=== PATIENT | female | born 1975 | race Two or more races ===

== ENCOUNTER → 2020-06-07 11:08 | Outpatient (BNVA) | payer OTHER, SELFPAY | PROVIDERS: PCP Family Medicine; Visit Provider Anesthesiology | DX: M79.7 Fibromyalgia (principal); M32.9 Systemic lupus erythematosus, unspecified; M47.816 Spondylosis without myelopathy or radiculopathy, lumbar region; M46.1 Sacroiliitis, not elsewhere classified | CPT/HCPCS: 99202 ==

== ENCOUNTER 2020-06-13 12:49 | Outpatient (REF) | payer OTHER, SELFPAY ==
--- NOTE | 2020-06-13 13:28 | XR_ITS ---
EXAMINATION: XR BILATERAL HANDS XR BILATERAL WRISTS CLINICAL INFORMATION: SLE COMPARISON: None TECHNIQUE: Bilateral hand/wrist, large [id number] images, 4 views FINDINGS: Right Hand/Wrist: Normal bone mineralization. Normal alignment. No significant arthropathy seen. No erosions identified. No abnormal soft tissue calcification. Carpal row alignment is maintained. Left Hand/Wrist: Normal bone mineralization. Normal alignment. No significant arthropathy is seen. No erosions or abnormal soft tissue calcification identified. Carpal row alignment is maintained. XR/XR hand wrist LT IMPRESSION: No radiographic evidence of significant arthropathy.
--- NOTE | 2020-06-13 13:28 | XR_ITS ---
EXAMINATION: XR BILATERAL HANDS XR BILATERAL WRISTS CLINICAL INFORMATION: SLE COMPARISON: None TECHNIQUE: Bilateral hand/wrist, large [id number] images, 4 views FINDINGS: Right Hand/Wrist: Normal bone mineralization. Normal alignment. No significant arthropathy seen. No erosions identified. No abnormal soft tissue calcification. Carpal row alignment is maintained. Left Hand/Wrist: Normal bone mineralization. Normal alignment. No significant arthropathy is seen. No erosions or abnormal soft tissue calcification identified. Carpal row alignment is maintained. XR/XR hand wrist RT IMPRESSION: No radiographic evidence of significant arthropathy.
[2020-06-14 09:11] LABS: HBc Num1 0.08 S/CO (0.00-0.79); HBsAGNum1 0.22 S/CO (0.00-0.99); Hepatitis B Core Antibody Nonreactive (Nonreactive); Hepatitis B Surface Antigen Negative (Negative); ~HepC Num1 0.26 S/CO (0.00-0.79); ~Hepatitis B Surface Antibody REACTIVE (Nonreactive); ~Hepatitis C Antibody Nonreactive (Nonreactive)
[2020-06-14 09:26] LABS: Hepatitis A Antibody IgM 0.15 Index (0-0.79); ~Hepatitis A Antibody IgM Nonreactive (Nonreactive)
[2020-06-15 19:01] LABS: TS Negative Control Passed; TS Panel A 1; TS Panel B 0; TS Positive Control Passed; TSpotTB Negative (SeeBelow)
== END 2020-06-13 12:50 | disposition home or self-care (01) ==
LOC: HO.LAB 12:49
PROVIDERS: PCP Family Medicine; Visit Provider Student in an Organized Health Care Education/Training Program
DX: M32.9 Systemic lupus erythematosus, unspecified (principal)
CPT/HCPCS: 73110; 73130; 86481; 86704; 86706; 86709; 86803; 87340

== ENCOUNTER → 2020-06-26 11:29 | Outpatient (BNVA) | payer OTHER, SELFPAY | PROVIDERS: PCP Family Medicine; Referring Provider Family Medicine; Visit Provider Student in an Organized Health Care Education/Training Program | DX: M32.9 Systemic lupus erythematosus, unspecified (principal); R79.89 Other specified abnormal findings of blood chemistry; M79.7 Fibromyalgia; Z79.899 Other long term (current) drug therapy | CPT/HCPCS: 99212 ==

== ENCOUNTER 2020-06-26 12:05 | Outpatient (REF) | payer OTHER, SELFPAY ==
[2020-06-26 12:29] LABS: MANUAL DIFF FLAG NO
--- NOTE | 2020-06-26 12:30 | XR_ITS ---
EXAMINATION: XR CHEST CLINICAL INFORMATION: Lupus COMPARISON: Previous chest x-ray November 2017 TECHNIQUE: 2 views of the chest were obtained. FINDINGS: The cardiac and mediastinal contours are stable. There are increased linear markings at the left base on the PA view only. This is similar to November 2017 exam and probably represents linear scarring or chronic subsegmental atelectasis. The lungs are otherwise clear. There is no pleural effusion or pneumothorax. There are degenerative changes of the spine. XR/XR chest 2V IMPRESSION: Linear scarring or chronic subsegmental atelectasis at the left lung base similar to November 2017 exam.
[2020-06-26 12:31] LABS: Basophils Absolute Auto 0.1 X10*3/uL (0.0-0.2); Eosinophils Absolute Auto 0.1 X10*3/uL (0.0-0.4); Eosinophils Percent Auto 1.8 % (0-4); Hematocrit 40.9 % (37-47); Imm Gran Abs Auto 0.02 X10*3/uL (0.00-0.03); Imm Gran Pct Auto 0.3 % (0.0-0.4); Lymphocytes Absolute Auto 2.5 X10*3/uL (1.2-4.9); Lymphocytes Percent Auto 32.2 % (20-40); Mean Corpuscular HGB Conc 31.8 g/dl (31.0-35.0); Mean Corpuscular Hemoglobin 27.6 pg (27.0-33.0); Mean Corpuscular Volume 86.8 fL (80-98); Mean Platelet Volume 10.1 fL (9.4-12.3); Monocytes Absolute Auto 0.5 X10*3/uL (0.1-1.2); Monocytes Percent Auto 6.5 % (2-11); Neutrophils Absolute Auto 4.6 X10*3/uL (2.0-8.3); Neutrophils Percent Auto 58.2 % (45-73); Platelet Count 218 X10*3/uL (160-400); Red Blood Count 4.71 X10*6/uL (4.20-5.50); Red Cell Distribution Width 13.8 % (11.0-16.0); White Blood Count 7.9 X10*3/uL (4.8-10.8)
[2020-06-26 13:00] LABS: Alanine Aminotransferase 16 U/L (0-31); Albumin Level 4.2 g/dL (3.5-5.0); Alkaline Phosphatase 91 U/L (39-117); Anion Gap 9 (12-20); Aspartate Amino Transferase 20 U/L (5-31); Bilirubin Total 0.2 mg/dL (0.0-1.0); Blood Urea Nitrogen 15 mg/dL (9-16); C Reactive Protein 1.26 mg/dL (< or = 0.50); Calcium 9.2 mg/dL (8.4-10.2); Carbon Dioxide 27 mmol/L (22-29); Chloride 106 mmol/L (96-108); Estimated Glomerular Filt Rate > 60; Glucose Random 83 mg/dL (60-115); Potassium 4.4 mmol/l (3.3-5.1); Sodium 138 mmol/L (135-145); Total Protein 7.2 g/dL (6.5-8.0)
[2020-06-26 13:13] LABS: Glucose Urine UA NEG (NEG); Leukocyte Esterase Urine NEG (NEG); Nitrite Urine NEG (NEG); Urine Blood NEG (NEG); Urine Ketones NEG (NEG); Urine Protein NEG (NEG-TRACE)
[2020-06-26 13:14] LABS: Appearance Urine HAZY; Color Urine YELLOW
[2020-06-26 13:25] LABS: RBC Urine 0 /HPF (0); Squamous Epithelial Cell Urine 1+ /LPF; WBC Urine 0 /HPF (0-4)
[2020-06-26 13:31] LABS: Erythrocyte Sedimentation Rate 6 MM/HR (0-20)
[2020-06-27 13:37] LABS: Complement C3 107 mg/dL (83-193)
[2020-06-29 12:56] LABS: Anti DNA DS Antibody 1 IU/mL
== END 2020-06-26 12:06 | disposition home or self-care (01) ==
LOC: HO.LAB 12:05
PROVIDERS: PCP Family Medicine; Visit Provider Student in an Organized Health Care Education/Training Program
DX: M32.9 Systemic lupus erythematosus, unspecified (principal)
CPT/HCPCS: 36415; 71046; 80053; 81001; 85025; 85652; 86140; 86160; 86225; 99212

== ENCOUNTER → 2020-07-05 16:25 | Outpatient (BNVA) | payer OTHER, SELFPAY | PROVIDERS: PCP Family Medicine; Visit Provider Anesthesiology | DX: M79.7 Fibromyalgia (principal); M32.9 Systemic lupus erythematosus, unspecified; M47.816 Spondylosis without myelopathy or radiculopathy, lumbar region; M46.1 Sacroiliitis, not elsewhere classified | CPT/HCPCS: 99212 ==

== ENCOUNTER → 2020-08-31 11:38 | Outpatient (BNVA) | payer OTHER, SELFPAY | PROVIDERS: PCP Family Medicine; Referring Provider Family Medicine; Visit Provider Student in an Organized Health Care Education/Training Program | DX: M32.9 Systemic lupus erythematosus, unspecified (principal); M79.7 Fibromyalgia; R79.89 Other specified abnormal findings of blood chemistry; R20.0 Anesthesia of skin | CPT/HCPCS: 99212 ==

== ENCOUNTER 2020-10-05 11:08 | Day surgery (SDC) | payer OTHER, SELFPAY ==
[2020-09-03 11:02] VITALS: BMI 41.3
--- NOTE | 2020-09-06 09:50 | HO.ANESPROP2 ---
HPI - Anesthesia Eval Consult details Narrative: 45yo F for Sacroiliac Joint Steroid [facility] Past Medical History Medical History (Updated 09/03/20 @ 11:04 by Christina Sadler) Fibromyalgia Lupus Sacroiliitis Spondylosis of lumbar region without myelopathy or radiculopathy Surgical History Surgical History (Updated 09/03/20 @ 11:04 by Christina Sadler) Hx of foot surgery Social History Social History Alcohol intake: never Smoking Status: Current some day smoker Cigarettes Per Day: 16 Meds Allergies Allergy/AdvReac Type Severity Reaction Status Date / Time No Known Allergies Allergy Mild NKA Verified 08/31/20 11:43 Home Medications Medication Instructions Recorded Confirmed Type acetaminophen 500 mg tablet 500 mg PO Q6H PRN 05/18/20 09/03/20 History budesonide-formoterol HFA 160 2 puff INHALATION Q12H 05/18/20 09/03/20 History mcg-4.5 mcg/actuation aerosol inhaler clonazepam 0.5 mg tablet 0.5 mg PO TID 05/18/20 09/03/20 History cyclobenzaprine 10 mg tablet 10 mg PO BID PRN tab 05/18/20 09/03/20 History duloxetine 60 mg capsule,delayed 60 mg PO DAILY 05/18/20 09/03/20 History release fexofenadine 60 mg tablet 60 mg PO DAILY tab 05/18/20 09/03/20 History ibuprofen 600 mg tablet 600 mg PO Q6H PRN 05/18/20 09/03/20 History oxybutynin chloride 10 mg 10 mg PO DAILY 05/18/20 09/03/20 History tablet,extended release 24 hr pantoprazole 40 mg tablet,delayed 40 mg PO DAILY 05/18/20 09/03/20 History release zolpidem 5 mg tablet 5 mg PO BEDTIME PRN 05/18/20 09/03/20 History bupropion HCl 150 mg 24 hr tablet, 150 mg PO QAM 06/07/20 09/03/20 History extended release duloxetine 30 mg capsule,delayed 30 mg PO DAILY 06/07/20 09/03/20 History release fluticasone propionate 220 1 puff INHALATION BID 08/31/20 09/03/20 History mcg/actuation HFA aerosol inhaler Exam Exam Date and Time: September 06, 2020 0950 Height,Weight and Vital Signs: Height 5 ft 2 in Weight 102.682 kg Pertinent Lab Results Pertinent Lab Results: Laboratory Tests 06/26/20 06/26/20 12:22 12:22 WBC 7.9 Hgb 13.0 Hct 40.9 Plt Count 218 Sodium 138 Potassium 4.4 Chloride 106 Carbon Dioxide 27 BUN 15 Creatinine 0.77 Assessment and Plan Assessment Anesthesia Assessment: Chart Reviewed
[2020-10-01 16:57] VITALS: BMI 41.1
--- NOTE | ~2020-10-05 | FL_ITS ---
EXAMINATION: XR FLUOROSCOPY WITH IMAGES CLINICAL INFORMATION: Sacroiliac joint injections COMPARISON: None. TECHNIQUE: Fluoroscopy performed by Dr. Shreyas Belle. Fluoroscopy time: 0.3 minutes DAP: 4 Gycm2 Images: 2 FINDINGS: Images demonstrate needle placement and contrast injection of the bilateral sacroiliac joints. There is an IUD in the pelvis. FL/FL guidance in OR IMPRESSION: Fluoroscopic guidance for bilateral sacroiliac joint injection
[2020-10-05 11:31] LABS: UPreg QC Valid YES; Urine Pregnancy NEGATIVE (NEGATIVE)
[2020-10-05 11:32] VITALS: BP 164/90; PULSE 98; RESP 20; TEMP 36.7; O2SAT 99
[2020-10-05] MEDS: Lactated Ringers 1,000 ML 100 ML IVCONT (11:39)
--- NOTE | 2020-10-05 12:12 | HO.ANESPROP2 ---
[facility], LATER [facility] Active Problems Active Problems: All Active Problems (Updated 10/05/20 @ 11:19 by Brittney Mccollum RN) Lupus (Acute) Anti-cyclic citrullinated peptide antibody positive (Acute) Cyclic citrullinated peptide (CCP) antibody positive (Acute) Bilateral hand numbness (Acute) Lupus (Acute) Sacroiliitis (Acute) Spondylosis of lumbar region without myelopathy or radiculopathy (Acute) Fibromyalgia (Acute) Past Medical History Medical History COPD (chronic obstructive pulmonary disease) Fibromyalgia Hx of esophagitis Hx of gastritis Lupus Sacroiliitis Spondylosis of lumbar region without myelopathy or radiculopathy Surgical History Surgical History History of lung surgery Hx of cholecystectomy Hx of foot surgery Social History Social History Alcohol intake: never Smoking Status: Current some day smoker Cigarettes Per Day: 16 Years Smoked: 26 Use of substances other than those prescribed or required for medical reasons: Yes Substance Use Type: Marijuana Substance Use Frequency: Daily Advance Directives: No (unknown) Advance Directives Information Provided: No Advance Directives on File: No (unknown) Meds Allergies Allergy/AdvReac Type Severity Reaction Status Date / Time No Known Allergies Allergy Mild NKA Verified 10/05/20 11:22 Active Medications: Current Medications Generic Name Dose Route Start Last Admin Trade Name Freq PRN Reason Stop Dose Admin Albuterol Sulfate 2.5 mg 10/05/20 11:38 Albuterol Sulfate (0.083%) 2.5 Mg/3 Ml Vial.Neb INHALE ONCE PRN Shortness of Breath/Wheezing Lactated Ringer's 1,000 mls @ 100 mls/hr 10/05/20 11:45 10/05/20 11:39 Lr IVCONT 100 mls/hr .Q10H OLIVERIO Administration Home Medications Medication Instructions Recorded Confirmed Last Taken Type acetaminophen 500 mg tablet 500 mg PO Q6H PRN 05/18/20 09/03/20 Unknown History budesonide-formoterol HFA 160 2 puff INHALATION Q12H 05/18/20 09/03/20 Unknown History mcg-4.5 mcg/actuation aerosol inhaler clonazepam 0.5 mg tablet 0.5 mg PO TID 05/18/20 09/03/20 10/05/20 09:30 History cyclobenzaprine 10 mg tablet 10 mg PO BID PRN tab 05/18/20 09/03/20 Unknown History duloxetine 60 mg capsule,delayed 90 mg PO DAILY 05/18/20 10/01/20 10/05/20 09:30 History release fexofenadine 60 mg tablet 60 mg PO DAILY tab 05/18/20 09/03/20 10/05/20 09:30 History oxybutynin chloride 10 mg 10 mg PO DAILY 05/18/20 09/03/20 Unknown History tablet,extended release 24 hr pantoprazole 40 mg tablet,delayed 40 mg PO DAILY 05/18/20 09/03/20 10/05/20 09:30 History release zolpidem 5 mg tablet 5 mg PO BEDTIME PRN 05/18/20 09/03/20 Unknown History bupropion HCl 150 mg 24 hr tablet, 150 mg PO QAM 06/07/20 09/03/20 10/05/20 09:30 History extended release fluticasone propionate 220 1 puff INHALATION BID 08/31/20 09/03/20 Unknown History mcg/actuation HFA aerosol inhaler gabapentin 600 mg PO BEDTIME 10/01/20 10/01/20 Unknown History Exam Exam Date and Time: October 05, 2020 1212 Height,Weight and Vital Signs: Height 5 ft 2 in Weight 102.058 kg Last Vital Signs Temp 98.1 F 10/05/20 11:32 Pulse 98 10/05/20 11:32 Resp 20 10/05/20 11:32 BP 164/90 H 10/05/20 11:32 Pulse Ox 99 10/05/20 11:32 Pertinent Lab Results Pertinent Lab Results: Laboratory Tests 10/05/20 11:15 Urine Test NEGATIVE Airway Mallampati Class: III TM Dist: >3cm Neck ROM: Full Loose/Missing/Broken Teeth: No Heart: RRR Other: multiple irremovable piercings on face; pt agrees to put right side down for the procedure. Assessment and Plan Assessment Anesthesia Assessment: Anesthesia Plan Discussed and Chart Reviewed Final Anesthetic Review NPO: Yes ASA Class: III Final Preanesthetic Review: No Changes in Pt Med Stat, Meds/Allgs Chart Reviewed, Consent Obtained/Reviewed and Anes Risks/Benef Reviewed Patient Risk: High Procedure Risk: Low Anesthetic Plan Anesthetic Plan: MAC: Disposition: Standard PACU
--- NOTE | 2020-10-05 12:21 | MHC.SHP ---
Pre-Procedural Eval Section A Changes since office visit: Yes Patient answered all questions The History & Physical has been completed within 30 days and I have reviewed it.: No Section B Chief Complaint: sacroiliitis Details of Present Illness: as above Relevant Family History (Specify if Yes): No Relevant Social History: None Present Medications: see Short Stay Collaborative assessment Medical History: No relevant PMH History of Previous Operations: No relevant previous surgery Allergies: Allergies Allergy/AdvReac Type Severity Reaction Status Date / Time No Known Allergies Allergy Mild NKA Verified 10/05/20 11:22 Review of Systems Sugical H&P ROS: Negative: Constitution, Cardiovascular, Respiratory, Neurological, Psychiatric, Hem-Onc, Allergic/Immunologic, Gastrointestinal, Genitourinary, Musculoskeletal, Integumentary, Endocrine and Eyes/Ears/Nose/Throat Exam Surgical H&P Exam: Normal: HEENT, Normal: Heart, Normal: Lungs, Normal: Extremities, Normal: Abdomen, Normal: Skin and Normal: Neurological Plan Diagnosis/Plan: Unchanged I have reviewed the history and physical and performed a pertinent physical examination on my patient. No changes have occurred unless specified.
--- NOTE | 2020-10-05 13:24 | PM.OP ---
Brief Operative Note Date of Service: 10/05/20 Pre-op diagnosis: sacroiliitis Post-op diagnosis: other (sacroiliitis, sacroiliac joint instability.) Procedure: bilateral SI joint steroid injection Surgeon: Shreyas Belle MD Anesthesia: MAC Estimated blood loss (mL): 0 Condition: stable Disposition: PACU
[2020-10-05 13:25] VITALS: BP 151/83; PULSE 92; RESP 19; TEMP 36.4; O2SAT 100
[2020-10-05 13:40] VITALS: BP 133/78; PULSE 79; RESP 18; TEMP 36.4; O2SAT 100
--- NOTE | 2020-10-07 10:53 | W.PM.OPN ---
Operative Note Operative Note Date of Service: 10/05/20 Narrative: Informed consent was explained thoroughly to the patient. All questions about benefits and risks for the procedure were answered. Patient came to the operating room she was positioned prone on the operating table with the pillow under her pelvis. [place] [employer] monitors were applied and patient was deeply sedated. Her lower back and buttocks was prepped with ChloraPrep prepped and draped with sterile towels. Sterilely draped C-arm was brought over the operating field and sq picture of patient's pelvis was demonstrated on the screen. significant SI joint instability was suspected during x-ray evaluation of the right joint more than the left. For each joint tilting C-arm contralateral to the site of the joint and 15? to the foot of the patient the most posterior portion of the joints were clearly delineated on the screen. Skin was injected in the projection of the joint slightly medial to the location of the joint with 25 gauge 1/2 inch needle using local lidocaine 2% without epinephrine. After that 22 gauge 3 and 1/2 inch needle was driven to were each point of interest in tunnel vision fashion. When needle entered the joint capsule injection of the contrast was performed demonstrating intra-articular and minimally periarticular spread of the contrast. After that 4 cc. of bupivacaine 0.5% was injected into each joint. Upon completion of the injections the needles were removed and pressure were applied. Sterile dressing was applied. Upon completion of the injection patient was awaken taken outside of the operating room to the recovery room where she recovered uneventfully. She went home without immediate complications.
== END 2020-10-05 14:17 | disposition home or self-care (01) ==
PROVIDERS: Anesthesiology; PCP Family Medicine; Visit Provider Anesthesiology
PROC: 3E0U33Z Introduction of Anti-inflammatory into Joints, Percutaneous Approach (ICD-10-PCS; CPT 27096; principal; 2020-10-05 12:00)
DX: M46.1 Sacroiliitis, not elsewhere classified (principal); J44.9 Chronic obstructive pulmonary disease, unspecified; M06.9 Rheumatoid arthritis, unspecified; M32.9 Systemic lupus erythematosus, unspecified; M79.7 Fibromyalgia; Z79.899 Other long term (current) drug therapy; F17.210 Nicotine dependence, cigarettes, uncomplicated; E66.01 Morbid (severe) obesity due to excess calories; Z68.41 Body mass index [BMI] 40.0-44.9, adult
CPT/HCPCS: 27096; 81025; J2250; J3010; J3300; Q9967

== ENCOUNTER 2020-10-19 13:36 | Outpatient (REF) | payer OTHER, SELFPAY ==
--- NOTE | ~2020-10-19 | MM_ITS ---
EXAMINATION: MM SCREENING DIGITAL BREAST TOMOSYNTHESIS, BILATERAL CLINICAL INFORMATION: Screening. Asymptomatic. No known family history breast cancer. No prior breast imaging. Age 45. The lifetime risk of breast cancer based on the Tyrer-Cuzick Model is 7%. COMPARISON: None (current study represents initial baseline exam). TECHNIQUE: Digital breast tomosynthesis is performed in both the craniocaudal and mediolateral oblique views along with computer-aided detection (CAD). Synthesized 2D images are generated from the tomosynthesis. FINDINGS: The breasts are almost entirely fatty (ACR BI-RADS breast composition Category a). There are no significant masses, abnormal calcifications, or other abnormalities. The axilla and skin contours are unremarkable. MM/MM tomosynthesis screening BI IMPRESSION: No mammographic evidence of malignancy. ASSESSMENT: BI-RADS 1: Negative RECOMMENDATION: Routine annual mammography screening. This patient's information was entered into a reminder system with a target due date for their next mammogram.
== END 2020-10-19 13:37 | disposition home or self-care (01) ==
LOC: HO.MAMMO 13:36
PROVIDERS: PCP Family Medicine; Visit Provider Family Medicine
DX: Z12.31 Encounter for screening mammogram for malignant neoplasm of breast (principal)
CPT/HCPCS: 77063; 77067

== ENCOUNTER 2020-10-24 14:30 | Outpatient (REF) | payer OTHER, SELFPAY ==
[2020-10-24 15:06] LABS: MANUAL DIFF FLAG NO
[2020-10-24 15:10] LABS: Basophils Absolute Auto 0.1 X10*3/uL (0.0-0.2); Basophils Percent Auto 0.9 % (0-2); Eosinophils Absolute Auto 0.2 X10*3/uL (0.0-0.4); Eosinophils Percent Auto 1.6 % (0-4); Hematocrit 38.2 % (37-47); Hemoglobin 12.4 g/dl (12.0-16.0); Imm Gran Abs Auto 0.04 X10*3/uL (0.00-0.03); Imm Gran Pct Auto 0.4 % (0.0-0.4); Lymphocytes Absolute Auto 3.4 X10*3/uL (1.2-4.9); Lymphocytes Percent Auto 33.6 % (20-40); Mean Corpuscular HGB Conc 32.5 g/dl (31.0-35.0); Mean Corpuscular Hemoglobin 28.1 pg (27.0-33.0); Mean Corpuscular Volume 86.4 fL (80-98); Mean Platelet Volume 9.7 fL (9.4-12.3); Monocytes Absolute Auto 0.6 X10*3/uL (0.1-1.2); Monocytes Percent Auto 6.3 % (2-11); Neutrophils Absolute Auto 5.8 X10*3/uL (2.0-8.3); Neutrophils Percent Auto 57.2 % (45-73); Platelet Count 244 X10*3/uL (160-400); Red Blood Count 4.42 X10*6/uL (4.20-5.50); Red Cell Distribution Width 15.9 % (11.0-16.0); White Blood Count 10.2 X10*3/uL (4.8-10.8)
[2020-10-24 15:24] LABS: Glucose Urine UA NEG (NEG); Leukocyte Esterase Urine NEG (NEG); Nitrite Urine NEG (NEG); PH 5.5 (5.0-8.0); Specific Gravity - Urine 1.025 (1.005-1.025); Urine Blood TRACE (NEG); Urine Ketones NEG (NEG); Urine Protein NEG (NEG-TRACE)
[2020-10-24 15:29] LABS: Appearance Urine CLEAR; Color Urine YELLOW
[2020-10-24 15:51] LABS: RBC Urine 0 /HPF (0); WBC Urine 0 /HPF (0-4)
[2020-10-24 15:58] LABS: Erythrocyte Sedimentation Rate 3 MM/HR (0-20)
[2020-10-24 16:15] LABS: Alanine Aminotransferase 21 U/L (0-31); Albumin Level 3.9 g/dL (3.5-5.0); Alkaline Phosphatase 80 U/L (39-117); Anion Gap 15 (12-20); Aspartate Amino Transferase 23 U/L (5-31); Blood Urea Nitrogen 16 mg/dL (9-16); C Reactive Protein 0.63 mg/dL (< or = 0.50); Carbon Dioxide 25 mmol/L (22-29); Chloride 104 mmol/L (96-108); Estimated Glomerular Filt Rate > 60; Glucose Random 85 mg/dL (60-115); Potassium 4.5 mmol/L (3.3-5.1); Sodium 139 mmol/L (135-145); Total Protein 6.7 g/dL (6.5-8.0)
[2020-10-24 16:21] LABS: Bilirubin Total 0.2 mg/dL (0.0-1.0)
[2020-10-25 08:57] LABS: Follicle Stimulating Hormone 4.8 mIU/mL
[2020-10-25 13:48] LABS: Anti DNA DS Antibody 1 IU/mL
[2020-10-25 17:26] LABS: Complement C3 113 mg/dL (83-193)
[2020-11-01 17:06] LABS: Estradiol Free 2.07 pg/mL; Estradiol, Ultrasensitive 118 pg/mL
== END 2020-10-24 14:31 | disposition home or self-care (01) ==
LOC: HO.LAB 14:30
PROVIDERS: Absent Provider Obstetrics & Gynecology Female Pelvic Medicine and Reconstructive Surgery; PCP Family Medicine; Visit Provider Student in an Organized Health Care Education/Training Program
DX: M32.9 Systemic lupus erythematosus, unspecified (principal); R68.82 Decreased libido
CPT/HCPCS: 36415; 80053; 81001; 82670; 82681; 83001; 85025; 85652; 86140; 86160; 86225

== ENCOUNTER 2020-10-31 13:19 | Outpatient (REF) | payer OTHER, SELFPAY ==
[2020-10-31 14:53] LABS: Glucose Urine UA NEG (NEG); Leukocyte Esterase Urine NEG (NEG); Nitrite Urine NEG (NEG); Urine Blood NEG (NEG); Urine Ketones NEG (NEG); Urine Protein NEG (NEG-TRACE)
[2020-10-31 14:54] LABS: Appearance Urine CLEAR; Color Urine YELLOW
[2020-10-31 15:00] LABS: RBC Urine 0 /HPF (0); WBC Urine 0 /HPF (0-4)
== END 2020-10-31 13:20 | disposition home or self-care (01) ==
LOC: HO.LAB 13:19
PROVIDERS: Student in an Organized Health Care Education/Training Program; PCP Family Medicine; Visit Provider Family Medicine
DX: R31.9 Hematuria, unspecified (principal)
CPT/HCPCS: 81001; 87086

== ENCOUNTER 2020-10-31 13:55 | Emergency (ER) | payer OTHER, SELFPAY ==
--- NOTE | ~2020-10-31 | CT_ITS ---
EXAMINATION: CT ABDOMEN AND PELVIS WITHOUT CONTRAST CLINICAL INFORMATION: Left-sided flank pain COMPARISON: None TECHNIQUE: Multidetector volumetric imaging was performed from the superior aspect of the liver through the pubic symphysis. Sagittal and coronal reformatted images were obtained on the technologist's workstation. This CT examination was performed using dose optimization techniques as appropriate, variously including the following: *Automated exposure control *Adjustment of mA and/or kV according to patient size (this includes techniques or standardized protocols for targeted exams where dose is matched to indication/reason for exam; i.e. extremities or head) *Use of iterative reconstruction technique DLP: 757 mGy-cm FINDINGS: LUNG BASES: Scarring is present at the left lung base with calcification. No pleural effusions are seen. LIVER, GALLBLADDER, AND BILIARY TREE: The liver is normal in size, shape, and attenuation. No focal hepatic lesion or biliary ductal dilatation is present. Status post cholecystectomy. PANCREAS: Unremarkable. SPLEEN: Unremarkable. ADRENAL GLANDS: Unremarkable. KIDNEYS AND URETERS: The kidneys are normal in size, shape, and attenuation. A small punctate intrarenal right nonobstructing calculus is present. No calculi are seen on the left. No hydronephrosis or hydroureter seen. No perinephric stranding. No renal masses BLADDER: Unremarkable. GASTROINTESTINAL TRACT: The small and large bowel are unremarkable. The cecum is behind the umbilicus and a normal-appearing appendix is long, extending into the pelvis. ABDOMINAL WALL: No significant hernia is appreciated. LYMPH NODES: No retroperitoneal lymphadenopathy is seen. VASCULAR: Unremarkable. PELVIC VISCERA: An anteverted uterus is present with an IUD in good position. The ovaries appear unremarkable. No free intraperitoneal fluid is seen. OSSEOUS STRUCTURES: Degenerative changes present in the spine most marked at L3-L4 and L5 L5-S1. CT/CT abdomen pelvis wo con IMPRESSION: An etiology for the left-sided flank pain is not found. A nonobstructing right intrarenal calculus is present. No renal calculi are present on the left.
[2020-10-31 15:04] VITALS: BP 147/67; PULSE 91; RESP 18; TEMP 36.8; O2SAT 98; BMI 42.0
[2020-10-31 17:22] LABS: MANUAL DIFF FLAG NO
[2020-10-31 17:23] LABS: Basophils Absolute Auto 0.1 X10*3/uL (0.0-0.2); Basophils Percent Auto 0.8 % (0-2); Eosinophils Absolute Auto 0.2 X10*3/uL (0.0-0.4); Eosinophils Percent Auto 1.8 % (0-4); Hematocrit 42.1 % (37-47); Hemoglobin 13.6 g/dl (12.0-16.0); Imm Gran Abs Auto 0.03 X10*3/uL (0.00-0.03); Imm Gran Pct Auto 0.3 % (0.0-0.4); Lymphocytes Absolute Auto 3.2 X10*3/uL (1.2-4.9); Lymphocytes Percent Auto 29.9 % (20-40); Mean Corpuscular HGB Conc 32.3 g/dl (31.0-35.0); Mean Corpuscular Hemoglobin 28.3 pg (27.0-33.0); Mean Corpuscular Volume 87.5 fL (80-98); Mean Platelet Volume 9.7 fL (9.4-12.3); Monocytes Absolute Auto 0.6 X10*3/uL (0.1-1.2); Monocytes Percent Auto 5.7 % (2-11); Neutrophils Absolute Auto 6.6 X10*3/uL (2.0-8.3); Neutrophils Percent Auto 61.5 % (45-73); Platelet Count 242 X10*3/uL (160-400); Red Blood Count 4.81 X10*6/uL (4.20-5.50); Red Cell Distribution Width 16.4 % (11.0-16.0); White Blood Count 10.8 X10*3/uL (4.8-10.8)
[2020-10-31 17:33] LABS: Glucose Urine UA NEG (NEG); Leukocyte Esterase Urine TRACE (NEG); Nitrite Urine NEG (NEG); PH 5.5 (5.0-8.0); Specific Gravity - Urine 1.025 (1.005-1.025); UACC Culture Trigger YES; Urine Blood NEG (NEG); Urine Ketones NEG (NEG); Urine Protein NEG (NEG-TRACE)
[2020-10-31 17:39] LABS: Appearance Urine CLEAR; Color Urine YELLOW
[2020-10-31 17:46] LABS: Bacteria Urine TRACE /LPF; Mucus Urine TRACE /LPF; RBC Urine 0-2 /HPF (0); Squamous Epithelial Cell Urine 1+ /LPF; WBC Urine 0-2 /HPF (0-4)
[2020-10-31 17:55] LABS: Alanine Aminotransferase 24 U/L (0-31); Albumin Level 4.2 g/dL (3.5-5.0); Alkaline Phosphatase 88 U/L (39-117); Anion Gap 13 (12-20); Aspartate Amino Transferase 24 U/L (5-31); Bilirubin Total 0.2 mg/dL (0.0-1.0); Blood Urea Nitrogen 13 mg/dL (9-16); Carbon Dioxide 23 mmol/L (22-29); Chloride 107 mmol/L (96-108); Creatinine Clr Calc Pharmacy 105.3; Estimated Glomerular Filt Rate > 60; Glucose Random 96 mg/dL (60-115); Sodium 139 mmol/L (135-145); Total Protein 7.3 g/dL (6.5-8.0)
--- NOTE | 2020-10-31 21:13 | ED.ABDPAIN ---
HPI - Abdominal Pain General Chief Complaint: Abdominal Pain Stated Complaint: L FLANK PAIN Time Seen by Provider: 10/31/20 20:29 Source: patient Mode of arrival: ambulatory Limitations: no limitations History of Present Illness HPI narrative: History of fibromyalgia and lupus sacroiliitis family history of kidney stone in mother noticed left flank pain for last 2 days started all of a sudden feels like sharp pain radiating to the left lower abdomen associated with nausea no vomiting denies any problem in urinate no hematuria patient never had similar pain in the past no shortness of breath no abdominal distension no constipation no fever or chills MD elicited complaint: flank pain Pertinent past history: none Onset (ago): hour(s) (2) Pain Consistency: constant Location: L flank Severity: moderate Quality: stabbing Radiation: LLQ Exacerbating factors: nothing Associated symptoms: nausea Related Data Home Medications Medication Instructions Recorded Confirmed acetaminophen 500 mg tablet 500 mg PO Q6H PRN 05/18/20 09/03/20 budesonide-formoterol HFA 160 2 puff INHALATION Q12H 05/18/20 09/03/20 mcg-4.5 mcg/actuation aerosol inhaler clonazepam 0.5 mg tablet 0.5 mg PO TID 05/18/20 09/03/20 cyclobenzaprine 10 mg tablet 10 mg PO BID PRN tab 05/18/20 09/03/20 duloxetine 60 mg capsule,delayed 90 mg PO DAILY 05/18/20 10/01/20 release fexofenadine 60 mg tablet 60 mg PO DAILY tab 05/18/20 09/03/20 oxybutynin chloride 10 mg 10 mg PO DAILY 05/18/20 09/03/20 tablet,extended release 24 hr pantoprazole 40 mg tablet,delayed 40 mg PO DAILY 05/18/20 09/03/20 release zolpidem 5 mg tablet 5 mg PO BEDTIME PRN 05/18/20 09/03/20 bupropion HCl 150 mg 24 hr tablet, 150 mg PO QAM 06/07/20 09/03/20 extended release fluticasone propionate 220 1 puff INHALATION BID 08/31/20 09/03/20 mcg/actuation HFA aerosol inhaler gabapentin 600 mg PO BEDTIME 10/01/20 10/01/20 Previous Rx's Medication Instructions Recorded folic acid 1 mg tablet 1 mg PO DAILY #30 tab 08/31/20 hydroxychloroquine 200 mg tablet 200 mg PO BID #60 tab 08/31/20 methotrexate sodium 2.5 mg tablet 10 mg PO QWEEK #16 tab 08/31/20 cyclobenzaprine 10 mg PO Q8H #20 tab 10/31/20 tramadol 50 mg PO Q6H PRN #20 tab 10/31/20 Allergies Allergy/AdvReac Type Severity Reaction Status Date / Time No Known Allergies Allergy Mild NKA Verified 10/31/20 15:04 Review of Systems Review of Systems Constitutional : No Weight loss, No Fever, No Chills ENT/Mouth : No sore throat, No Rhinorrhea Eyes: No Eye Pain, No Swelling Cardiovascular : No Chest Pain, no palpitations Respiratory : No Cough, No Sputum, no shortness of breath Gastrointestinal : ++Nausea, No Vomiting, No Diarrhea,+ abdominal Pain, no black stools Genitourinary : No Dysuria, No Urinary Frequency Musculoskeletal : No joint pain, No Myalgias, No Joint Swelling Skin : No Skin Lesions, No rash Neuro : No Weakness, No Numbness, No Dizziness, No Headache Psych : No Anxiety/Panic, No Depression Heme/Lymph: No Bruising, No Lymphadenopathy Endocrine : No Polyuria, No Polydipsia All other systems reviewed and are negative Physical Exam Vital Signs: Vital Signs: Last Vital Signs Temp 98.0 F 10/31/20 22:23 Pulse 82 10/31/20 22:23 Resp 18 10/31/20 22:23 BP 132/65 10/31/20 22:23 Pulse Ox 100 10/31/20 22:23 Body Mass Index 42.0 Appearance: Alert. Oriented X3. In mild distress. Eyes: Pupils equal, round and reactive to light. ENT: Pharynx normal. Neck: Normal inspection. Neck supple. CVS: Normal heart rate and rhythm. Pulses normal. Respiratory: No respiratory distress. Breath sounds normal. Abdomen: Soft and nontender. No rebound tenderness or guarding Bowel sounds are present, no mass palpable, left CVA tenderness + Skin: Skin warm and dry. Normal skin color. Normal skin turgor. Extremities: No lower extremity edema. Neuro: Oriented X 3. No motor deficit. No sensory deficit. MDM - Abdominal Pain MDM Narrative Medical decision making narrative: Patient nonspecific left flank pain history of fibromyalgia urine is negative for any hematuria CT scan also negative for any kidney stone likely cause of pain is musculoskeletal will discharge patient home on tramadol and Flexeril Differential Diagnosis Differential diagnosis: Likely calculus of kidney Medical Records Attestation: I reviewed the patient's medical records. Lab Data Attestation: I reviewed the patient's lab results. Result diagrams: 10/31/20 17:05 10/31/20 17:04 Labs: Lab Results 10/31/20 10/31/20 10/31/20 Range/Units 17:04 17:05 17:05 WBC 10.8 (4.8-10.8) X10*3/uL RBC 4.81 (4.20-5.50) X10*6/uL Hgb 13.6 (12.0-16.0) g/dl Hct 42.1 (37-47) % MCV 87.5 (80-98) fL MCH 28.3 (27.0-33.0) pg MCHC 32.3 (31.0-35.0) g/dl RDW 16.4 H (11.0-16.0) % Plt Count 242 (160-400) X10*3/uL MPV 9.7 (9.4-12.3) fL Immature Gran % (Auto) 0.3 (0.0-0.4) % Neut % (Auto) 61.5 (45-73) % Lymph % (Auto) 29.9 (20-40) % [place] % (Auto) 5.7 (2-11) % Eos % (Auto) 1.8 (0-4) % Baso % (Auto) 0.8 (0-2) % Lymph # (Auto) 3.2 (1.2-4.9) X10*3/uL [place] # (Auto) 0.6 (0.1-1.2) X10*3/uL Eos # (Auto) 0.2 (0.0-0.4) X10*3/uL Baso # (Auto) 0.1 (0.0-0.2) X10*3/uL Abs Immat Gran (auto) 0.03 (0.00-0.03) X10*3/uL Absolute Neuts (auto) 6.6 (2.0-8.3) X10*3/uL Absolute Nucleated RBC 0.000 (0.0-0.012) X10*3/uL Nucleated RBC % (auto) 0.0 (0.0-0.2) /100WBC Hold Blue Top SEE NOTE Sodium 139 (135-145) mmol/L Potassium 4.0 (3.3-5.1) mmol/L Chloride 107 (96-108) mmol/L Carbon Dioxide 23 (22-29) mmol/L Anion Gap 13 (12-20) BUN 13 (9-16) mg/dL Creatinine 0.78 (0.5-1.4) mg/dL Estim Creat Clear Calc 105.3 Estimated GFR > 60 Random Glucose 96 (60-115) mg/dL Calcium 9.0 (8.4-10.2) mg/dL Total Bilirubin 0.2 (0.0-1.0) mg/dL AST 24 (5-31) U/L ALT 24 (0-31) U/L Alkaline Phosphatase 88 (39-117) U/L Total Protein 7.3 (6.5-8.0) g/dL Albumin 4.2 (3.5-5.0) g/dL Urine Color Urine Appearance Urine pH (5.0-8.0) Ur Specific [place] (1.005-1.025) Urine Protein (NEG-TRACE) MG/DL Urine Glucose (UA) (NEG) MG/DL Urine Ketones (NEG) MG/DL Urine Blood (NEG) Urine Nitrite (NEG) Ur Leukocyte Esterase (NEG) Urine RBC (0) /HPF Urine WBC (0-4) /HPF Ur Squamous Epith Cells /LPF Urine Bacteria /LPF Urine Mucus /LPF 10/31/20 Range/Units 17:13 WBC (4.8-10.8) X10*3/uL RBC (4.20-5.50) X10*6/uL Hgb (12.0-16.0) g/dl Hct (37-47) % MCV (80-98) fL MCH (27.0-33.0) pg MCHC (31.0-35.0) g/dl RDW (11.0-16.0) % Plt Count (160-400) X10*3/uL MPV (9.4-12.3) fL Immature Gran % (Auto) (0.0-0.4) % Neut % (Auto) (45-73) % Lymph % (Auto) (20-40) % [place] % (Auto) (2-11) % Eos % (Auto) (0-4) % Baso % (Auto) (0-2) % Lymph # (Auto) (1.2-4.9) X10*3/uL [place] # (Auto) (0.1-1.2) X10*3/uL Eos # (Auto) (0.0-0.4) X10*3/uL Baso # (Auto) (0.0-0.2) X10*3/uL Abs Immat Gran (auto) (0.00-0.03) X10*3/uL Absolute Neuts (auto) (2.0-8.3) X10*3/uL Absolute Nucleated RBC (0.0-0.012) X10*3/uL Nucleated RBC % (auto) (0.0-0.2) /100WBC Hold Blue Top Sodium (135-145) mmol/L Potassium (3.3-5.1) mmol/L Chloride (96-108) mmol/L Carbon Dioxide (22-29) mmol/L Anion Gap (12-20) BUN (9-16) mg/dL Creatinine (0.5-1.4) mg/dL Estim Creat Clear Calc Estimated GFR Random Glucose (60-115) mg/dL Calcium (8.4-10.2) mg/dL Total Bilirubin (0.0-1.0) mg/dL AST (5-31) U/L ALT (0-31) U/L Alkaline Phosphatase (39-117) U/L Total Protein (6.5-8.0) g/dL Albumin (3.5-5.0) g/dL Urine Color YELLOW Urine Appearance CLEAR Urine pH 5.5 (5.0-8.0) Ur Specific [place] 1.025 (1.005-1.025) Urine Protein NEG (NEG-TRACE) MG/DL Urine Glucose (UA) NEG (NEG) MG/DL Urine Ketones NEG (NEG) MG/DL Urine Blood NEG (NEG) Urine Nitrite NEG (NEG) Ur Leukocyte Esterase TRACE H (NEG) Urine RBC 0-2 (0) /HPF Urine WBC 0-2 (0-4) /HPF Ur Squamous Epith Cells 1+ /LPF Urine Bacteria TRACE /LPF Urine Mucus TRACE /LPF Discharge Plan Discharge Clinical Impression: Back strain Patient Disposition: Home, Self-Care Instructions: Low Back Strain (ED) Additional Instructions: Rest apply ice take pain medication and muscle relaxants as advised. Follow with PCP if not better Prescriptions: New cyclobenzaprine 10 mg tablet 10 mg PO Q8H Qty: 20 RF: 0 tramadol 50 mg tablet 50 mg PO Q6H PRN (Reason: pain) Qty: 20 RF: 0 No Action gabapentin 300 mg capsule 600 mg PO BEDTIME RF: 0 bupropion HCl 150 mg tablet extended release 24 hr 150 mg PO QAM RF: 0 Flovent HFA 220 mcg/actuation HFA aerosol inhaler 1 puff inhalation BID RF: 0 methotrexate sodium 2.5 mg tablet 10 mg PO QWEEK Qty: 16 RF: 2 hydroxychloroquine [Plaquenil] 200 mg tablet 200 mg PO BID Qty: 60 RF: 5 folic acid 1 mg tablet 1 mg PO DAILY Qty: 30 RF: 3 zolpidem 5 mg tablet 5 mg PO BEDTIME PRN (Reason: Insomnia) RF: 0 duloxetine [Cymbalta] 60 mg capsule,delayed release(DR/EC) 90 mg PO DAILY RF: 0 fexofenadine [Melissa Allergy] 60 mg tablet 60 mg PO DAILY RF: 0 clonazepam [Klonopin] 0.5 mg tablet 0.5 mg PO TID RF: 0 budesonide-formoterol [Symbicort] 160-4.5 mcg/actuation HFA aerosol inhaler 2 puff inhalation Q12H RF: 0 acetaminophen [Tylenol Extra Strength] 500 mg tablet 500 mg PO Q6H PRN (Reason: Pain) RF: 0 cyclobenzaprine 10 mg tablet 10 mg PO BID PRN (Reason: Muscle Spasm) RF: 0 oxybutynin chloride 10 mg tablet extended release 24hr 10 mg PO DAILY RF: 0 pantoprazole [Protonix] 40 mg tablet,delayed release (DR/EC) 40 mg PO DAILY RF: 0 Interventions: ED Discharge Assessment Last Done: 10/31/20 23:30 Discharge Date/Time: 10/31/20 23:31 [facility] Past Medical History Medical History COPD (chronic obstructive pulmonary disease) Fibromyalgia Hx of esophagitis Hx of gastritis Lupus Sacroiliitis Spondylosis of lumbar region without myelopathy or radiculopathy Surgical History History of lung surgery Hx of cholecystectomy Hx of foot surgery Social History Social History Alcohol intake: never Smoking Status: Current some day smoker Cigarettes Per Day: 16 Years Smoked: 26 Substance Use Type: Marijuana Advance Directives: No Advance Directives Information Provided: Yes
[2020-10-31] MEDS: oxyCODONE HCl Immed Release 5 MG TABLET 10 MG PO (21:39)
[2020-10-31 22:23] VITALS: BP 132/65; PULSE 82; RESP 18; TEMP 36.7; O2SAT 100
== END 2020-10-31 23:31 | disposition home or self-care (01) ==
PROVIDERS: Emergency Medicine Emergency Medical Services; Emergency Provider Internal Medicine; PCP Family Medicine
DX: S39.012A Strain of muscle, fascia and tendon of lower back, initial encounter (principal); X58.XXXA Exposure to other specified factors, initial encounter; M79.7 Fibromyalgia; M32.9 Systemic lupus erythematosus, unspecified; M46.1 Sacroiliitis, not elsewhere classified; Y93.9 Activity, unspecified; Y92.9 Unspecified place or not applicable; Y99.9 Unspecified external cause status
CPT/HCPCS: 36415; 74176; 80053; 81001; 81003; 85025; 99283; 99284

== ENCOUNTER → 2020-11-08 11:46 | Outpatient (BNVA) | payer OTHER, SELFPAY | PROVIDERS: PCP Family Medicine; Visit Provider Anesthesiology ==

== ENCOUNTER 2020-11-09 10:03 | Day surgery (SDC) | payer OTHER, SELFPAY ==
[2020-11-05 15:25] VITALS: BMI 41.3
--- NOTE | 2020-11-08 09:48 | P.CONAN_ITS ---
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) Bilateral hand numbness (Acute) Lupus (Acute) Sacroiliitis (Acute) Spondylosis of lumbar region without myelopathy or radiculopathy (Acute) Fibromyalgia (Acute) Past Medical History Medical History COPD (chronic obstructive pulmonary disease) Fibromyalgia Hx of esophagitis Hx of gastritis Lupus Sacroiliitis Spondylosis of lumbar region without myelopathy or radiculopathy Surgical History Surgical History History of lung surgery Hx of cholecystectomy Hx of foot surgery Social History Social History Alcohol intake: never Smoking Status: Current every day smoker Cigarettes Per Day: 16 Years Smoked: 26 Use of substances other than those prescribed or required for medical reasons: Yes Substance Use Type: Marijuana Advance Directives: No Advance Directives Information Provided: Yes Meds Allergies Allergy/AdvReac Type Severity Reaction Status Date / Time No Known Allergies Allergy Mild NKA Verified 11/09/20 10:23 Home Medications Medication Instructions Recorded Confirmed Last Taken Type acetaminophen 500 mg tablet 500 mg PO Q6H PRN 05/18/20 09/03/20 Unknown History budesonide-formoterol HFA 160 2 puff INHALATION Q12H 05/18/20 09/03/20 Unknown History mcg-4.5 mcg/actuation aerosol inhaler clonazepam 0.5 mg tablet 0.5 mg PO TID 05/18/20 09/03/20 11/09/20 08:30 History cyclobenzaprine 10 mg tablet 10 mg PO BID PRN tab 05/18/20 09/03/20 Unknown History duloxetine 60 mg capsule,delayed 90 mg PO DAILY 05/18/20 10/01/20 11/09/20 08:30 History release fexofenadine 60 mg tablet 60 mg PO DAILY tab 05/18/20 09/03/20 11/09/20 08:30 History oxybutynin chloride 10 mg 10 mg PO DAILY 05/18/20 09/03/20 Unknown History tablet,extended release 24 hr pantoprazole 40 mg tablet,delayed 40 mg PO DAILY 05/18/20 09/03/20 11/09/20 08:30 History release zolpidem 5 mg tablet 5 mg PO BEDTIME PRN 05/18/20 09/03/20 Unknown History bupropion HCl 150 mg 24 hr tablet, 150 mg PO QAM 06/07/20 09/03/20 11/09/20 08:30 History extended release fluticasone propionate 220 1 puff INHALATION BID 08/31/20 09/03/20 Unknown History mcg/actuation HFA aerosol inhaler gabapentin 600 mg PO BEDTIME 10/01/20 10/01/20 Unknown History pregabalin 25 mg capsule 25 mg PO BID 11/08/20 Unknown History Exam Exam Date and Time: November 08, 202048 Height,Weight and Vital Signs: Height 5 ft 2 in Weight 102.512 kg Assessment and Plan Assessment Anesthesia Assessment: Chart Reviewed Documented by User: Sidra Rao 11/09/20 13:49 [facility] Past Medical History Medical History COPD (chronic obstructive pulmonary disease) Fibromyalgia Hx of esophagitis Hx of gastritis Lupus Sacroiliitis Spondylosis of lumbar region without myelopathy or radiculopathy Surgical History Surgical History History of lung surgery Hx of cholecystectomy Hx of foot surgery Social History Social History Alcohol intake: never Smoking Status: Current every day smoker Cigarettes Per Day: 16 Years Smoked: 26 Use of substances other than those prescribed or required for medical reasons: Yes Substance Use Type: Marijuana Advance Directives: No Advance Directives Information Provided: Yes Meds Allergies Allergy/AdvReac Type Severity Reaction Status Date / Time No Known Allergies Allergy Mild NKA Verified 11/09/20 10:23 Home Medications Medication Instructions Recorded Confirmed Last Taken Type acetaminophen 500 mg tablet 500 mg PO Q6H PRN 05/18/20 09/03/20 Unknown History budesonide-formoterol HFA 160 2 puff INHALATION Q12H 05/18/20 09/03/20 Unknown History mcg-4.5 mcg/actuation aerosol inhaler clonazepam 0.5 mg tablet 0.5 mg PO TID 05/18/20 09/03/20 11/09/20 08:30 History cyclobenzaprine 10 mg tablet 10 mg PO BID PRN tab 05/18/20 09/03/20 Unknown History duloxetine 60 mg capsule,delayed 90 mg PO DAILY 05/18/20 10/01/20 11/09/20 08:30 History release fexofenadine 60 mg tablet 60 mg PO DAILY tab 05/18/20 09/03/20 11/09/20 08:30 History oxybutynin chloride 10 mg 10 mg PO DAILY 05/18/20 09/03/20 Unknown History tablet,extended release 24 hr pantoprazole 40 mg tablet,delayed 40 mg PO DAILY 05/18/20 09/03/20 11/09/20 08:30 History release zolpidem 5 mg tablet 5 mg PO BEDTIME PRN 05/18/20 09/03/20 Unknown History bupropion HCl 150 mg 24 hr tablet, 150 mg PO QAM 06/07/20 09/03/20 11/09/20 08:30 History extended release fluticasone propionate 220 1 puff INHALATION BID 08/31/20 09/03/20 Unknown History mcg/actuation HFA aerosol inhaler gabapentin 600 mg PO BEDTIME 10/01/20 10/01/20 Unknown History pregabalin 25 mg capsule 25 mg PO BID 11/08/20 Unknown History Exam Airway Mallampati Class: II TM Dist: >3cm Neck ROM: Full Assessment and Plan Assessment Anesthesia Assessment: Anesthesia Plan Discussed and Chart Reviewed Final Anesthetic Review NPO: Yes ASA Class: III Final Preanesthetic Review: No Changes in Pt Med Stat, Meds/Allgs Chart Reviewed, Consent Obtained/Reviewed and Anes Risks/Benef Reviewed Patient Risk: Intermediate Procedure Risk: Low Assessment/Block/Sedation in SS: Assess/Block/Sedation-SS Anesthetic Plan Anesthetic Plan: MAC: Disposition: Standard PACU
--- NOTE | ~2020-11-09 | FL_ITS ---
EXAMINATION: XR FLUOROSCOPY WITH IMAGES CLINICAL INFORMATION: Medial branch blocks. COMPARISON: CT abdomen and pelvis 10/31/2020 TECHNIQUE: Fluoroscopy performed by Dr. Shreyas Belle. Fluoroscopy time: 0.6 minutes DAP: 10.0 Gycm2 Images: 6 FINDINGS: There are spinal needles overlying outer aspect of the bilateral L3, L4, and L5 neural foramen. Contrast is seen in the nerve sheaths. There is no vascular communication. Small round imaging equipment spot artifact, known and unresolved present overlying sacrum. FL/FL guidance in OR IMPRESSION: Fluoroscopy for pain management procedures.
[2020-11-09 10:28] LABS: UPreg QC Valid YES; Urine Pregnancy NEGATIVE (NEGATIVE)
[2020-11-09 10:30] VITALS: BP 152/87; PULSE 90; RESP 18; TEMP 36.7; O2SAT 98
[2020-11-09] MEDS: Lactated Ringers 1,000 ML 100 ML IVCONT (10:44)
--- NOTE | 2020-11-09 11:03 | P.HPSUR_ITS ---
Pre-Procedural Eval Section B Chief Complaint: Spondylosis without myelopathy Details of Present Illness: As above Relevant Family History (Specify if Yes): No Present Medications: see Short Stay Collaborative assessment Medical History: No relevant PMH History of Previous Operations: No relevant previous surgery Allergies: Allergies Allergy/AdvReac Type Severity Reaction Status Date / Time No Known Allergies Allergy Mild NKA Verified 11/09/20 10:23 Review of Systems Sugical H&P ROS: Negative: Constitution, Cardiovascular, Respiratory, Neurological, Psychiatric, Hem-Onc, Allergic/Immunologic, Gastrointestinal, Genitourinary, Musculoskeletal, Integumentary, Endocrine and Eyes/E ars/Nose/Throat Exam Surgical H&P Exam: Normal: HEENT, Normal: Heart, Normal: Lungs, Normal: Extremities, Normal: Abdomen, Normal: Skin and Normal: Neurological Plan Diagnosis/Plan: Unchanged I have reviewed the history and physical and performed a pertinent physical examination on my patient. No changes have occurred unless specified.
--- NOTE | 2020-11-09 13:14 | MHC.SHP ---
Pre-Procedural Eval Section B Chief Complaint: Spondylosis without myelopathy Allergies: Allergies Allergy/AdvReac Type Severity Reaction Status Date / Time No Known Allergies Allergy Mild NKA Verified 11/09/20 10:23 Plan I have reviewed the history and physical and performed a pertinent physical examination on my patient. No changes have occurred unless specified.
[2020-11-09 14:15] VITALS: BP 152/76; PULSE 96; RESP 18; TEMP 36.9; O2SAT 100
--- NOTE | 2020-11-09 14:15 | PM.OP ---
Brief Operative Note Date of Service: 11/09/20 Pre-op diagnosis: Spondylosis lumbar Post-op diagnosis: same Implants: None Surgeon: Shreyas Belle MD Anesthesia: MAC Estimated blood loss (mL): 0 Condition: stable Disposition: PACU
--- NOTE | 2020-11-09 14:16 | W.PM.OPN ---
Operative Note Operative Note Date of Service: 11/09/20 Narrative: After obtaining informed consent and explaining to the patient risks, benefits and alternatives to treat her pain, the patient was brought up to the operating room where she was positioned prone on operative table. [employer] monitors were applied and patient was sedated. Time-out was performed delineating correct site and side of the procedure, name and date of of the patient, risk of fire, need for antibiotic prophylaxis risk of DVT and need for DVT prophylaxis. After that the patient entire back was prepped with chloroprep and draped with utility towels.. Sterilely drape C-arm was brought over the OR field and square pictures of the L4-L5 and S1 vertebrae were demonstrated on the screen. The points of interest were delineated as bilateral connection of superior articular process of L4 and L5 vertebra with corresponding transverse process of the same vertebrae, as well as connection of superior articular process of S1 vertebra with sacral alae appear The projection of the point of interest to the skin were injected with lidocaine 2%. After that 22 gauge 5 in needle was driven to the point of interest in tunnel vision fashion. When needle gently contacted the bone the small amount of the contrast was injected demonstrating no intrathecal and no intravascular spread of the contrast. After that injections of the treatment solution of bupivacaine 0.5% mixed with Kenalog was injected into each site 1.5 cc. Total dose of Kenalog was 80 mg. Patient tolerated procedure well she was awaken and transferred to PACU. She recovered uneventfully she went home without immediate complications.
[2020-11-09 14:30] VITALS: BP 156/88; PULSE 85; RESP 20; O2SAT 100
[2020-11-09 14:45] VITALS: BP 156/80; PULSE 84; RESP 16; O2SAT 99
== END 2020-11-09 15:20 | disposition home or self-care (01) ==
PROVIDERS: Nurse Practitioner; PCP Family Medicine; Visit Provider Anesthesiology
PROC: (CPT 64493; principal; 2020-11-09 11:30)
DX: M47.816 Spondylosis without myelopathy or radiculopathy, lumbar region (principal); M46.1 Sacroiliitis, not elsewhere classified; M32.9 Systemic lupus erythematosus, unspecified; M79.7 Fibromyalgia; F17.210 Nicotine dependence, cigarettes, uncomplicated; Z79.899 Other long term (current) drug therapy
CPT/HCPCS: 64493; 64494; 81025; J1100; J2250; J2405; J3010; J3300; Q9967

== ENCOUNTER → 2020-12-17 10:38 | Outpatient (BNVA) | payer OTHER, SELFPAY | PROVIDERS: PCP Family Medicine; Visit Provider Anesthesiology ==

== ENCOUNTER → 2020-12-19 10:22 | Outpatient (BNVA) | payer OTHER, SELFPAY | PROVIDERS: PCP Family Medicine; Visit Provider Anesthesiology ==

== ENCOUNTER 2020-12-27 14:17 | Outpatient (REF) | payer OTHER, SELFPAY ==
--- NOTE | ~2020-12-27 | XR_ITS ---
EXAMINATION: XR KNEE, RIGHT CLINICAL INFORMATION: Other specified abnormal immunological findings COMPARISON: None TECHNIQUE: Four views of the right knee. FINDINGS: Bone alignment is normal. No fracture or dislocation is seen. The joint spaces are normal. There is a small osteophyte at the quadriceps tendon insertion to the patella. There is a soft tissue ossification seen on the sunrise view projecting over the medial femoral tibial joint. This may be seen on the AP view projecting inferior to the patella. There is no joint effusion. XR/XR knee RT 4V IMPRESSION: Small osteophyte at the quadriceps tendon insertion. Small medial peripatellar soft tissue ossification.
[2020-12-27 15:18] LABS: MANUAL DIFF FLAG NO
[2020-12-27 15:25] LABS: Basophils Absolute Auto 0.1 X10*3/uL (0.0-0.2); Basophils Percent Auto 0.9 % (0-2); Eosinophils Absolute Auto 0.2 X10*3/uL (0.0-0.4); Eosinophils Percent Auto 2.5 % (0-4); Hematocrit 42.2 % (37-47); Hemoglobin 13.9 g/dl (12.0-16.0); Imm Gran Abs Auto 0.01 X10*3/uL (0.00-0.03); Imm Gran Pct Auto 0.1 % (0.0-0.4); Lymphocytes Absolute Auto 2.9 X10*3/uL (1.2-4.9); Lymphocytes Percent Auto 42.4 % (20-40); Mean Corpuscular HGB Conc 32.9 g/dl (31.0-35.0); Mean Corpuscular Volume 87.9 fL (80-98); Mean Platelet Volume 10.2 fL (9.4-12.3); Monocytes Absolute Auto 0.5 X10*3/uL (0.1-1.2); Monocytes Percent Auto 7.2 % (2-11); Neutrophils Absolute Auto 3.2 X10*3/uL (2.0-8.3); Neutrophils Percent Auto 46.9 % (45-73); Platelet Count 224 X10*3/uL (160-400); Red Cell Distribution Width 14.9 % (11.0-16.0); White Blood Count 6.8 X10*3/uL (4.8-10.8)
[2020-12-27 15:31] LABS: Glucose Urine UA NEG (NEG); Leukocyte Esterase Urine NEG (NEG); Nitrite Urine NEG (NEG); PH 5.5 (5.0-8.0); Specific Gravity - Urine 1.025 (1.005-1.025); Urine Blood NEG (NEG); Urine Ketones NEG (NEG); Urine Protein NEG (NEG-TRACE)
[2020-12-27 15:32] LABS: Appearance Urine CLEAR; Color Urine YELLOW
[2020-12-27 15:53] LABS: Alanine Aminotransferase 33 U/L (0-31); Albumin Level 4.1 g/dL (3.5-5.0); Alkaline Phosphatase 99 U/L (39-117); Anion Gap 11 (12-20); Aspartate Amino Transferase 31 U/L (5-31); Bilirubin Total 0.3 mg/dL (0.0-1.0); Blood Urea Nitrogen 13 mg/dL (9-16); C Reactive Protein 0.38 mg/dL (< or = 0.50); Calcium 9.4 mg/dL (8.4-10.2); Carbon Dioxide 25 mmol/L (22-29); Chloride 108 mmol/L (96-108); Estimated Glomerular Filt Rate > 60; Glucose Random 80 mg/dL (60-115); Potassium 4.3 mmol/L (3.3-5.1); Sodium 140 mmol/L (135-145)
[2020-12-27 16:48] LABS: Erythrocyte Sedimentation Rate 5 MM/HR (0-20)
[2020-12-27 18:17] LABS: RBC Urine 0 /HPF (0); WBC Urine 0 /HPF (0-4)
[2020-12-28 20:06] LABS: Complement C3 82 mg/dL (83-193)
[2021-01-01 16:21] LABS: Anti DNA DS Antibody 1 IU/mL
== END 2020-12-27 14:18 | disposition home or self-care (01) ==
LOC: HO.XRAY 14:17
PROVIDERS: PCP Student in an Organized Health Care Education/Training Program; Visit Provider Student in an Organized Health Care Education/Training Program
DX: R76.8 Other specified abnormal immunological findings in serum (principal); R79.89 Other specified abnormal findings of blood chemistry; M32.9 Systemic lupus erythematosus, unspecified; Z79.899 Other long term (current) drug therapy
CPT/HCPCS: 36415; 73564; 80053; 81001; 85025; 85652; 86140; 86160; 86225; 99212

== ENCOUNTER → 2021-03-20 14:03 | Outpatient (BNVA) | payer OTHER, SELFPAY | PROVIDERS: Visit Provider Student in an Organized Health Care Education/Training Program | DX: M32.9 Systemic lupus erythematosus, unspecified (principal); R79.89 Other specified abnormal findings of blood chemistry | CPT/HCPCS: 99212 ==

== ENCOUNTER 2021-03-25 10:35 | Outpatient (REF) | payer OTHER, SELFPAY ==
--- NOTE | ~2021-03-25 | XR_ITS ---
EXAMINATION: XR LUMBOSACRAL SPINE WITH OBLIQUES CLINICAL INFORMATION: Spondylolisthesis COMPARISON: CT abdomen pelvis October 31, 2020. Lumbar spine March 23, 2020 TECHNIQUE: AP. Lateral. Bilateral oblique. Cone-down lateral lumbosacral junction view FINDINGS: Lumbar vertebrae have normal height. No fracture or bone destruction. Alignment of vertebrae is normal. There is no spondylolisthesis. There is no spondylolysis. There is degenerative spondylosis. There is lumbar disc height narrowing at L3-L4 and L4-L5 disc levels. There is mild degenerative lipping at the anterior endplates of lower thoracic and lumbar vertebrae. There is mild degenerative facet joint arthrosis at the lumbosacral junction. Compared to the prior study of March 23, 2020 there has not been substantial change. XR/XR lumbar spine 6V w bending IMPRESSION: 1. No acute abnormality. 2. Degenerative spondylosis of lumbar spine.
== END 2021-03-25 10:36 | disposition home or self-care (01) ==
LOC: HO.XRAY 10:35
PROVIDERS: PCP Family Medicine; Visit Provider Anesthesiology
DX: M43.10 Spondylolisthesis, site unspecified (principal); M79.7 Fibromyalgia; M32.9 Systemic lupus erythematosus, unspecified; M47.816 Spondylosis without myelopathy or radiculopathy, lumbar region; M46.1 Sacroiliitis, not elsewhere classified
CPT/HCPCS: 72114; 99212

== ENCOUNTER → 2021-04-10 14:03 | Outpatient (BNVA) | payer OTHER, SELFPAY | PROVIDERS: PCP Family Medicine; Visit Provider Anesthesiology ==

== ENCOUNTER 2021-04-25 13:07 | Outpatient (REF) | payer OTHER, SELFPAY ==
--- NOTE | ~2021-04-25 | MR_ITS ---
EXAMINATION: MR LUMBAR SPINE WITHOUT CONTRAST CLINICAL INFORMATION: Lower back pain. COMPARISON: Lumbar spine radiographs dated 03/25/2021. TECHNIQUE: MRI of the lumbar spine was obtained using routine sequences without contrast. FINDINGS: VERTEBRAL BODIES AND PARASPINAL STRUCTURES: Normal vertebral body alignment. The lumbar lordosis is maintained. No acute fracture or subluxation. No loss of vertebral body height. Loss of intervertebral disc height with disc desiccation at T11-T12 as well as at L3-S1. Endplate Schmorl's nodes at L5-S1 with Modic type II degenerative changes at L4-L5. Vertebral body hemangioma at L3. No additional abnormal marrow signal to suggest acute osseous injury. The visualized paraspinal soft tissues are unremarkable. CONUS MEDULLARIS AND CAUDA EQUINA: Normal, terminating at the level of the superior endplate of L2. SPINAL LEVELS: T11-T12: Broad-based disc bulge with bilateral facet arthropathy causing mild bilateral neural foraminal stenosis. T12-L1: No significant disc bulge. No central canal or neural foraminal stenosis. L1-L2: No significant disc bulge. Mild bilateral facet arthropathy. No central canal or neural foraminal stenosis. L2-L3: No significant disc bulge. Mild bilateral facet arthropathy. No central canal or neural foraminal stenosis. L3-L4: Broad-based disc bulge with a small posterior central disc protrusion. Bilateral facet arthropathy with mild bilateral neural foraminal stenosis. L4-L5: Broad-based disc bulge with a small posterior central disc protrusion. Bilateral facet arthropathy with mild bilateral neural foraminal stenosis. L5-S1: Small posterior central disc protrusion which is slightly asymmetric to the left. Bilateral facet arthropathy with mild bilateral neural foraminal stenosis. MR/MR lumbar spine wo con IMPRESSION: 1. Broad-based disc bulges at L3-L4 and L4-L5 with small posterior central disc protrusions as well as bilateral facet arthropathy causing mild bilateral neural foraminal stenosis. 2. Small posterior central disc protrusion at L5-S1 which is slightly asymmetric to the left. In combination with bilateral facet arthropathy this causes mild bilateral neural foraminal stenosis. 3. Broad-based disc bulge at T11-T12 with bilateral facet arthropathy causing mild bilateral neural foraminal stenosis.
== END 2021-04-25 13:08 | disposition home or self-care (01) ==
LOC: HO.MRI 13:07
PROVIDERS: Visit Provider Anesthesiology
DX: M47.816 Spondylosis without myelopathy or radiculopathy, lumbar region (principal); M46.1 Sacroiliitis, not elsewhere classified
CPT/HCPCS: 72148

== ENCOUNTER → 2021-05-27 13:57 | Outpatient (BNVA) | payer OTHER, SELFPAY | PROVIDERS: PCP Family Medicine; Visit Provider Anesthesiology | DX: M79.7 Fibromyalgia (principal); M32.9 Systemic lupus erythematosus, unspecified; M47.816 Spondylosis without myelopathy or radiculopathy, lumbar region; M46.1 Sacroiliitis, not elsewhere classified | CPT/HCPCS: 99212 ==

== ENCOUNTER → 2021-07-22 10:07 | Outpatient (BNVA) | payer OTHER, SELFPAY | PROVIDERS: PCP Internal Medicine; Visit Provider Hospitalist | DX: R91.8 Other nonspecific abnormal finding of lung field (principal); J44.9 Chronic obstructive pulmonary disease, unspecified; F17.210 Nicotine dependence, cigarettes, uncomplicated | CPT/HCPCS: 99202 ==

== ENCOUNTER 2021-08-12 10:26 | Outpatient (REF) | payer OTHER, SELFPAY ==
--- NOTE | ~2021-08-12 | CT_ITS ---
EXAMINATION: CT CHEST WITHOUT CONTRAST CLINICAL INFORMATION: Nonspecific abnormal finding of lung field. COMPARISON: Chest radiograph dated from 06/26/2020. TECHNIQUE: Multidetector volumetric CT imaging of the chest was done. Axial MIP volume rendering provided. Sagittal and coronal reformatted images were obtained. This CT examination was performed using dose optimization techniques as appropriate, variously including the following: *Automated exposure control *Adjustment of mA and/or kV according to patient size (this includes techniques or standardized protocols for targeted exams where dose is matched to indication/reason for exam; i.e. extremities or head) *Use of iterative reconstruction technique DLP: 212 mGy-cm FINDINGS: LUNGS: Paraseptal and centrilobular emphysematous changes, more apparent in the lung apices. Scattered subpleural thickening and peripheral reticulation. Minimal mosaic attenuation of the lung parenchyma with mild bronchial wall thickening. In the left lower lobe, there are indeterminate plate-like opacities and architectural distortion (for instance image 306 of series 7) with associated calcifications. There is a 0.7 cm pulmonary lymph node abutting the right minor fissure (7:227). There is an indeterminate 0.3 cm subpleural pulmonary nodule in the right middle lobe (7:292). There is also an indeterminate 0.5 cm subpleural pulmonary nodule posteriorly in the right upper lobe (7:179) and a 0.4 cm subpleural pulmonary nodule in the left upper lobe (7:123). MEDIASTINUM: Normal heart size. Indeterminate haziness of the prevascular fat (3:19). There are a few prominent mediastinal lymph nodes, for example measuring up to 0.9 cm in maximum short axis on image 19 of series 3 in the lower pretracheal space, and 1 cm on image 145 of series 7 in the prevascular space. Evaluation of hilar lymphadenopathy is suboptimal in the absence of intravenous contrast. Normal appearance of the thyroid gland. PLEURA: No pleural effusion or pneumothorax. AXILLAE: Prominent bilateral axillary lymph nodes with preserved fatty carol. UPPER ABDOMEN: Cholecystectomy. OSSEOUS STRUCTURES: No acute or aggressive osseous abnormalities. CT/CT chest wo con IMPRESSION: Indeterminate architectural distortion and parenchymal thickening in the left lower lobe, possibly sequelae of prior surgery. Correlate with surgical history and recommend a short-term follow up to ensure stability and rule out possible underlying developing lesions. Nonspecific pulmonary nodules measuring up to 0.5 cm nodules which could also be followed up with the above recommended study. Background of emphysematous changes with mild bronchial wall thickening and peripheral reticulation. Indeterminate haziness of the fat in the anterior mediastinum with also a few prominent axillary and mediastinal lymph nodes which could be follow-up as recommended above.
== END 2021-08-12 10:27 | disposition home or self-care (01) ==
LOC: HO.CT 10:26
PROVIDERS: Visit Provider Hospitalist
DX: R91.8 Other nonspecific abnormal finding of lung field (principal); J44.9 Chronic obstructive pulmonary disease, unspecified
CPT/HCPCS: 71250

== ENCOUNTER 2021-10-24 10:13 | Outpatient (REF) | payer OTHER, SELFPAY ==
--- NOTE | 2021-10-24 17:33 | PFT_ITS ---
FLOWS: FEV1 95% of predicted at 2.70 L. FVC 90% of predicted at 3.10 L. FEV1 to FVC ratio of 0.87. No bronchodilator response. LUNG VOLUMES: Total lung capacity 93% of predicted at 4.56 L. Residual volume 65% of predicted at 1.06 L. Slow vital capacity 106% of predicted at 3.50 L. Expiratory reserve volume 40% of predicted at 0.44 L. Diffusion capacity is mildly decreased. IMPRESSION: No obstructive or restrictive ventilatory defect. No bronchodilator response. Decreased expiratory reserve volume suggests extrathoracic restriction, likely secondary to abdominal obesity. Decreased diffusion capacity suggests emphysema. MD SHANNEN Carrillo/MODL / [id number]
== END 2021-10-24 10:14 | disposition home or self-care (01) ==
LOC: HO.RESP 10:13
PROVIDERS: PCP Internal Medicine; Visit Provider Hospitalist
DX: J45.40 Moderate persistent asthma, uncomplicated (principal); R91.8 Other nonspecific abnormal finding of lung field; B02.29 Other postherpetic nervous system involvement; F17.200 Nicotine dependence, unspecified, uncomplicated; Z71.6 Tobacco abuse counseling; Z79.899 Other long term (current) drug therapy
CPT/HCPCS: 94060; 94727; 94729; 99212

== ENCOUNTER 2021-11-28 11:55 | Outpatient (REF) | payer OTHER, SELFPAY ==
--- NOTE | ~2021-11-28 | MM_ITS ---
EXAMINATION: MM SCREENING DIGITAL BREAST TOMOSYNTHESIS, BILATERAL CLINICAL INFORMATION: Screening. Asymptomatic. The lifetime risk of breast cancer based on the Tyrer-Cuzick Model is 7.6%. COMPARISON: Mammography: October 19, 2020 TECHNIQUE: Digital breast tomosynthesis is performed in both the craniocaudal and mediolateral oblique views along with computer-aided detection (CAD). Synthesized 2D images are generated from the tomosynthesis. FINDINGS: The breasts are almost entirely fatty (ACR BI-RADS breast composition Category a). There are no significant masses, abnormal calcifications, or other abnormalities. MM/MM tomosynthesis screening BI IMPRESSION: There are no significant changes from prior study. ASSESSMENT: BI-RADS 1: Negative RECOMMENDATION: Routine annual mammography screening. This patient's information was entered into a reminder system with a target due date for their next mammogram.
== END 2021-11-28 11:56 | disposition home or self-care (01) ==
LOC: HO.MAMMO 11:55
PROVIDERS: PCP Internal Medicine; Visit Provider Internal Medicine
DX: Z12.31 Encounter for screening mammogram for malignant neoplasm of breast (principal)
CPT/HCPCS: 77063; 77067

== ENCOUNTER → 2022-04-25 10:18 | Outpatient (BNVA) | payer OTHER, SELFPAY | PROVIDERS: PCP Internal Medicine; Visit Provider Hospitalist | DX: Z23 Encounter for immunization (principal); R91.8 Other nonspecific abnormal finding of lung field; J45.40 Moderate persistent asthma, uncomplicated; F17.210 Nicotine dependence, cigarettes, uncomplicated | CPT/HCPCS: 90471; 90732; 99212 ==

== ENCOUNTER 2022-08-08 10:15 | Outpatient (REF) | payer OTHER, SELFPAY ==
--- NOTE | ~2022-08-08 | CT_ITS ---
EXAMINATION: CT CHEST WITHOUT CONTRAST CLINICAL INFORMATION: Normal lung findings. COMPARISON: CT chest 08/12/2021. TECHNIQUE: Multidetector volumetric CT imaging of the chest was done. Axial MIP volume rendering provided. Sagittal and coronal reformatted images were obtained. This CT examination was performed using dose optimization techniques as appropriate, variously including the following: *Automated exposure control *Adjustment of mA and/or kV according to patient size (this includes techniques or standardized protocols for targeted exams where dose is matched to indication/reason for exam; i.e. extremities or head) *Use of iterative reconstruction technique DLP: 339 mGy-cm. FINDINGS: JUNIOR GRAPHIC DESIGNER: Elevated right hemidiaphragm otherwise expanded lungs. LUNGS: There is mild centrilobular emphysema with scattered ground-glass densities in both upper lobes, superior segments of both lower lobe subpleural reticulation and thickening and scattered small cysts throughout both lungs. No acute consolidation seen. No bronchial wall thickening. There is a 7 mm nodule right upper lobe axial image 203/4 adjacent to the major fissure, a 4 mm subpleural nodule left upper lobe posterior segment axial image 103/4, a 2 nodule left upper lobe axial image 191/4, a 2 mm thickening along the right major fissure axial image 227/4 likely lymph nodes. Postsurgical changes in the left lower lobe with minimal scarring, stable. No recurrent nodular mass seen. MEDIASTINUM: The thyroid lobes are symmetrical and normal. Central trachea and the bronchi are widely patent. Prominent thymic tissue seen in anterior mediastinum. Heart size and the great vessels are normal caliber. There is no pericardial effusion. CORONARY ARTERY CALCIFICATION: None visualized on this study. PLEURA: There is no pleural effusion. No pleural mass or thickening. AXILLA: There are small shotty lymph nodes in bilateral axilla. The largest lymph node right axilla measures 1.5 cm. UPPER ABDOMEN: Visualized liver, spleen, pancreas and bilateral adrenal glands are unremarkable. The gallbladder has been surgically removed. OSSEOUS STRUCTURES: There is mild ventral spondylosis throughout dorsal spine. No aggressive lytic or sclerotic process. CT/CT chest wo IV con IMPRESSION: 1. Stable bilateral pulmonary nodules. 2. Postsurgical changes left lower lobe are stable. 3. No abnormal mediastinal or axillary lymph nodes seen. 4. Stable bilateral axillary lymph nodes. 5. Centrilobular emphysema with scattered groundglass densities in both upper lobes and superior segments of both lower lobes. Fleischner guidelines were followed.
== END 2022-08-08 10:16 | disposition home or self-care (01) ==
LOC: HO.CT 10:15
PROVIDERS: PCP Internal Medicine; Visit Provider Hospitalist
DX: R91.8 Other nonspecific abnormal finding of lung field (principal)
CPT/HCPCS: 71250

== ENCOUNTER → 2022-10-24 10:01 | Outpatient (BNVA) | payer OTHER, SELFPAY | PROVIDERS: PCP Internal Medicine; Visit Provider Hospitalist | DX: J45.40 Moderate persistent asthma, uncomplicated (principal); R91.8 Other nonspecific abnormal finding of lung field; R01.1 Cardiac murmur, unspecified; F17.210 Nicotine dependence, cigarettes, uncomplicated | CPT/HCPCS: 99212 ==

== ENCOUNTER → 2022-11-18 13:00 | Outpatient (REF) | payer OTHER, SELFPAY ==
--- NOTE | 2022-11-18 13:03 | CA_ITS ---
Transthoracic Echocardiogram Patient (Last, First, Middle): Romana Cameron J Gender: Female Date of : 1975 Age: 47 Procedure Date: 11/18/2022 Procedure Type: Transthoracic Echocardiogram Location: OP Height: 157.48 cm Weight: 98.43 kg BSA: 1.98 m2 Heart Rate: bpm BP: 160 / 84 mmHg Manager Of Learning: MAGALY Referring MD: Bogdan Hook MD Symptoms: R01.1 - Cardiac murmur, unspecified Study Quality: Adequate ECG Rhythm: Sinus Conclusions: - The left ventricular systolic function is normal. The calculated ejection fraction is 64% by biplane method. - There is mildly increased left ventricular wall thickness. - The left atrium is severely dilated. - No obvious valvular pathology seen on this study. Findings Left Ventricle Normal left ventricular cavity size. There is mildly increased left ventricular wall thickness. The left ventricular systolic function is normal. The calculated ejection fraction is 64% by biplane method. There is no evidence of regional wall motion abnormalities. Evidence suggests grade I (mild) diastolic dysfunction. LV peak GLS -17.1%. Right Ventricle Normal right ventricular cavity size and systolic function. Atria The left atrium is severely dilated. The right atrium is normal in size. Aortic Valve There is a normal trileaflet aortic valve. There is no aortic valve stenosis. There is no aortic valve regurgitation. Mitral Valve The mitral valve appears normal. There is trace mitral valve regurgitation. There is no mitral valve stenosis. Pulmonic Valve The pulmonic valve is likely normal. Tricuspid Valve There is trace tricuspid valve regurgitation. There is no evidence of pulmonary hypertension. Great Vessels The asc aorta is normal in size. Venous The inferior vena cava is normal in size and collapses greater than 50% with inspiration. Pericardium/Pleural There is no evidence of pericardial effusion. Prior Study Comparison No prior study available for comparison. Recommendations, Care & Conclusions No obvious valvular pathology seen on this study. Measurements 2D Linear Measurements IVSd: 1.24 0.6-0.9/0.6-1.0 cm LVIDd: 5.23 3.9-5.3/4.2-5.9 cm LVIDd Index: 2.64 2.4-3.2/2.2-3.1 cm/m2 LVIDs: 3.32 2.0-3.6 cm LVPWd: 1.19 0.7-1.1 cm LA Diam: 3.80 2.7-3.8/3.0-4.0 cm LAIDs Index: 1.92 1.5-2.3 cm/m2 LV Mass: 318.66 67-162/88-224 g LV Mass Index: 160.94 43-95/49-115 g/m2 LVOT Diam: 2.00 3.0+(-)1.3 cm 2D Systolic Function EF 4C: 66.20 >55% EF 2C: 60.90 >55% EF BiP: 63.80 >55% Mitral Valve MV Pk E: 0.93 MV PK A: 0.77 MV Decel Time: 248.00 E/A: 1.20 E'Lateral: 7.40 E'Medial: 7.18 E/E' Med: 13.00 E/E' Lat: 12.60 PHT: 73.00 MVA PHT: 3.01 Decel Dent: 3.75 Aortic Valve AoV Pk Stanislav: 1.90 AoV Mn Stanislav: 1.21 AoV VTI: 0.40 AoV Pk Grad: 14.00 Aov Mn Grad: 7.00 BUCK Cont.VTI: 2.41 LVOT LVOT Pk Stanislav: 1.50 LVOT Mn Stanislav: 1.02 LVOT VTI: 0.31 LVOT Pk Grad: 9.00 LVOT Mn Grad: 5.00 LVOT Diam: 2.00 LVOT Area: 3.14 Diastolic Function MV Pk E: 0.93 MV Pk A: 0.77 E/A: 1.20 E'Medial: 7.18 E/E' Med: 13.00 E' Laterial: 7.40 E/E' Lat: 12.60 Right Ventricle TAPSE (mm): 27.20 TVS' Stanislav: 12.40 Tricuspid Valve TR Pk Stanislav: 2.24 TR Pk Grad: 20.00 RA Press: 3.00 RVSP: 23.00 Great Vessels Aorta Sinus of Valsalva: 3.13 2.0-3.[address] Ridge: 2.71 1.7-3.4 cm Ao Asc: 3.30 2.1-3.4 cm Updated in Other Vendor System with Status of Final Vinod Munguia MD electronically signed on 11/19/2022 10:38:21 AM with status of Final
== END ==
LOC: HO.CARD 13:00
PROVIDERS: PCP Internal Medicine; Visit Provider Hospitalist
DX: R01.1 Cardiac murmur, unspecified (principal)
CPT/HCPCS: 93306; 93356

== ENCOUNTER 2023-02-20 10:11 | Outpatient (AMB) | payer OTHER, SELFPAY ==
--- NOTE | 2023-02-20 10:12 | MHC.OFFVIS ---
Intake Vital Signs 02/20/23 10:13 Height 5 ft 2 in Weight 208 lb 5.389 oz BMI 38.1 BP 132/68 Blood Pressure Location Rt brachial Position Sitting Pulse 65 Pulse Source Pulse Oximeter Pulse Oximetry (%) 100 Oxygen Delivery Method Room Air Intake Visit Reasons: Dyspnea Train Starter Required: No Allergies No Known Allergies Allergy (Mild, Verified 02/20/23 10:17) NKA HPI HPI Comments History of Present Illness Details The patient is a 47-year-old woman with a known history of asthma, tobacco dependency and pulmonary nodules. The patient states that she has been having worsening shortness of breath with activity. [id number] severity. She does have inhaler, Symbicort. However, has resulted in irritation to her mouth and she does have a hard time tolerating it. She does not use a spacer with it. Currently she is in the 160 dose which is the higher dose. We talked about the importance of using a spacer and also hopefully with minimizing the inhaled steroids will could have her tolerated better. But his symptoms she should be using on a daily basis. I am hopeful that we can have her tolerated better. the patient did have a CT scan of the chest done in [place] with used to be very even last in February 2020 approximately where she had multiple pulmonary nodules largest 1 measuring up to 6 mm in size. In addition to that the patient already has evidence of emphysema. the patient understands that she needs to quit smoking. She does have a lot of family support. The patient is not ready at this time since she is going to significant amount of stress. However, she will come up with a quit date. 10/24/2021 the patient is here for a pulmonary follow-up visit. 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 she has seen multiple pain specialist for without any significant improvement. Currently she is on Lyrica. It does help her some but still having some discomfort. Patient still on a small dose and we can increase it at nighttime to help her with her discomfort at night. and the patient denies any vesicles although she has had chickenpox therefore post herpetic neuralgia cannot be ruled out either. She did undergo pulmonary function studies which I personally reviewed with her. Appears that she does have relatively normal PFTs except for a low normal total lung capacity due to her surgery and a mild diffusion impairment also due to her surgery. after the biopsy she was told that she did not have cancer although was unclear exactly what the biopsy showed. Therefore I will have her sign a release of medical records to get the pathology from [facility]. The patient continues on her Symbicort and also continues on the albuterol. Again we talked about smoking cessation. The patient is very stressed but she does want to quit. as a personally reviewed her CT scan of the chest demonstrating the postoperative changes. She also has pulmonary nodules. She also has the beginnings of emphysema. 04/25/2022 The patient is here for a pulmonary follow-up visit. Overall the patient is doing well from a respiratory status. She continues uses Symbicort. She also has a rescue inhaler which she does not require. Unfortunate she continues to smoke cigarettes. She has been motivated to quitting but she has been very stressed that results in more smoking. We did talk about different nicotine therapies including the Nicotrol inhaler. I will send that to the pharmacy so she can start using it with hopes to switching over to the Nicotrol inhaler and subsequently be able to wean off from that. In addition to that we did review her again her CT scan of the chest demonstrating some postoperative changes. The patient needs to have a repeat CT scan to follow up with those changes. Patient also has underlying non calcified pulmonary nodules that do need follow-up. The patient still having significant back pain. She has been on Lyrica. She is working with her pain specialist. I believe she is going to be referred to a different pain specialist which is helpful. In the meantime I did recommend she talk to her primary care or pain specialist for further adjustments and her Lyrica medication. 10/24/2022 the patient is here for pulmonary follow-up visit. The patient continues to be about the same. She continues use her respiratory medication. She is struggling with smoking. She could not get the Nicotrol inhaler Because it was sent to the wrong pharmacy. I will rx chantix. She will monitor for any mood changes. We did review her last CT scan of the chest on August 2022 demonstrating stable pulmonary nodules. Due to high risk stage IV lung cancer will go ahead and repeat her CT scan in a year's time. In the meantime on examination the patient does have a murmur best heard at the left sternal border. She did undergo an ECHO demonstrating mild hypertrophy and a dilated LA. Trivial valvular regurgitation. [facility] Medical History (Updated 10/24/22 @ 14:16 by Muriel Cintron PA-C) Asthma Asthma-COPD overlap syndrome COPD (chronic obstructive pulmonary disease) Fibromyalgia Hx of esophagitis Hx of gastritis Murmur Pulmonary nodules Sacroiliitis Spondylolisthesis Spondylosis of lumbar region without myelopathy or radiculopathy Tobacco dependence Surgical History (Updated 10/24/22 @ 14:22 by Muriel Cintron PA-C) History of cholecystectomy (~2014) History of foot surgery (~2006) History of lung surgery (~2014) Social History Alcohol intake: never Patient Tobacco Use Status: Current everyday Tobacco user Tobacco use type: Cigarette Cigarette Packs Per Day: 1 Cigarettes Per Day: 5 Years Smoked: 12 years Substance Use Type: Marijuana Review of Systems Const Denies night sweats ENT Denies change in voice, Denies lip swelling, Denies mouth pain, Reports nasal congestion, Reports nasal discharge and Denies tongue swelling Card Denies chest pain and Reports dyspnea on exertion Resp Reports chest congestion, Reports cough, Reports pain on inspiration, Reports pain with cough and Reports dyspnea on exertion GI Denies abdominal pain Musc Reports back pain, Reports arthralgias and Reports joint swelling Neuro Denies Neuro-related abnormal movements Psych Denies no additional complaints Talha/Lymph Denies easy bleeding and Denies lymphadenopathy Aller/Immun Denies lip swelling and Denies tongue swelling Physical Exam Vital Signs: Last Vital Signs Pulse 65 02/20/23 10:13 BP 132/68 02/20/23 10:13 Pulse Ox 100 02/20/23 10:13 Oxygen Delivery Method Room Air 02/20/23 10:13 BMI result Body Mass Index 38.1 Const General: alert Neck Neck: Yes normal visual inspection, Yes full ROM and Yes no lymphadenopathy Chest Chest palpation & inspection: normal inspection of the chest Resp Auscultation: no rhonchi, no wheezes and diminished lung sounds Cardio Rate: regular rate Rhythm: regular rhythm Heart sounds: S1 normal heart sound present and S2 normal heart sound present GI Palpation (GI): Soft to palpation and nontender Auscultation: normal bowel sounds Skin General skin exam: rashes and/or lesions noted Assessment & Plan Assessment & Plan (1) Pulmonary nodules: Code(s): R91.8 - Other nonspecific abnormal finding of lung field (2) Tobacco dependence: Code(s): F17.200 - Nicotine dependence, unspecified, uncomplicated (3) Asthma: Code(s): J45.909 - Unspecified asthma, uncomplicated Qualifiers: Asthma complication type: uncomplicated Asthma persistence: persistent Asthma severity: moderate Qualified Code(s): J45.40 - Moderate persistent asthma, uncomplicated (4) Murmur: Code(s): R01.1 - Cardiac murmur, unspecified Plan Spiriva zyrtec tobacco cessation: start chantix short-acting beta agonist as needed CT chest 10/2023 follow-up 6 months Medications: New tiotropium bromide 2.5 mcg/actuation (Spiriva Respimat) 2 puffs inhalation DAILY 1 ea 11RF 30 days albuterol sulfate 90 mcg/actuation 2 inhalations inhalation Q6H PRN 18 grams 12RF shortness of breath or wheezing 30 days J44.9 - Chronic obstructive pulmonary disease, unspecified varenicline (Chantix Starting Month Box) PO PER PKG DIR 42 ea 0RF Coding Level of Care Code Est Pt Level 4 (65501) Diagnoses Pulmonary nodules R91.8 Tobacco dependence F17.200 Asthma J45.40 Asthma complication type: uncomplicated Asthma persistence: persistent Asthma severity: moderate Murmur R01.1 Time Spent (min) 18
[2023-02-20 10:13] VITALS: BP 132/68; PULSE 65; O2SAT 100; BMI 38.1
== END 2023-02-20 10:44 | disposition home or self-care (01) ==
PROVIDERS: PCP Internal Medicine; Visit Provider Hospitalist
DX: R91.8 Other nonspecific abnormal finding of lung field (principal); F17.200 Nicotine dependence, unspecified, uncomplicated; J45.40 Moderate persistent asthma, uncomplicated; R01.1 Cardiac murmur, unspecified
CPT/HCPCS: 99214

== ENCOUNTER → 2023-02-20 10:11 | Outpatient (BNVA) | payer OTHER, SELFPAY | PROVIDERS: Visit Provider Hospitalist | DX: J45.40 Moderate persistent asthma, uncomplicated (principal); R91.8 Other nonspecific abnormal finding of lung field; R01.1 Cardiac murmur, unspecified; F17.200 Nicotine dependence, unspecified, uncomplicated | CPT/HCPCS: 99212 ==

== ENCOUNTER 2023-04-08 12:05 | Emergency (ER) | payer OTHER, SELFPAY ==
--- NOTE | ~2023-04-08 | XR_ITS ---
EXAMINATION: XR KNEE, LEFT CLINICAL INFORMATION: No trauma, pain COMPARISON: None available. TECHNIQUE: Four views of the left knee. FINDINGS: No acute visible fracture or dislocation. Mild multi joint arthritic changes. Joint spaces and alignment are otherwise maintained. Trace knee joint effusion. Soft tissues are unremarkable. XR/XR knee LT 4V IMPRESSION: 1. No acute visible fracture or dislocation. 2. Mild multi joint arthritic changes. 3. Trace knee joint effusion.
--- NOTE | ~2023-04-08 | US_ITS ---
EXAMINATION: US VENOUS ULTRASOUND WITH DOPPLER LOWER EXTREMITY, LEFT CLINICAL INFORMATION: Pain and swelling. Evaluate for DVT or Lynn's cyst. COMPARISON: None available. TECHNIQUE: Ultrasound of the deep veins is performed from the hip to the calf with compression sonography and color and pulse Doppler assessment. Spectral analysis with color-flow imaging is performed. FINDINGS: The common femoral vein is compressible and exhibits a normal phasic waveform; this suggests that the iliac veins are widely patent above. Within the proximal thigh, the visualized profunda femoris vein is normal. The examined greater saphenous vein and saphenofemoral junction are normal. Superficial femoral vein is patent in the proximal, mid and distal thigh. Popliteal vein is normal to the level of the trifurcation. On compression garcia scale and color Doppler images, the visualized posterior tibial and peroneal veins of the calf are patent. No evidence of Lynn's cyst. US/US venous duplex LE LT IMPRESSION: No evidence of deep vein thrombosis in the left lower extremity.
[2023-04-08 13:11] VITALS: BP 186/75; PULSE 64; RESP 16; TEMP 37.1; O2SAT 100; BMI 37.4
--- NOTE | 2023-04-08 13:12 | ED_ITS ---
HPI - Extremity Injury (Lower) General Chief Complaint: Extremity Problem Stated Complaint: pain in L knee ? possible blood clot Time Seen by Provider: 04/08/23 15:04 Source: patient Mode of arrival: ambulatory History of Present Illness HPI Narrative: 47-year-old female who presents with left knee pain for 3 wakes without associated fever, chills, redness or swelling. Patient denies any shortness of breath. Related Data Home Medications Medication Instructions Recorded Confirmed clonazepam 0.5 mg tablet (Klonopin) 0.5 mg PO TID 05/18/20 03/20/21 oxybutynin chloride 10 mg 10 mg PO DAILY 05/18/20 03/20/21 tablet,extended release 24 hr pantoprazole 40 mg tablet,delayed 40 mg PO DAILY 05/18/20 03/20/21 release (Protonix) zolpidem 5 mg tablet 5 mg PO BEDTIME PRN Insomnia 05/18/20 03/20/21 metoprolol succinate 50 mg 50 mg PO DAILY 12/17/20 03/20/21 tablet,extended release 24 hr oxcarbazepine 600 mg tablet 600 mg PO BID 12/27/20 03/20/21 (Trileptal) oxcarbazepine 600 mg tablet 900 mg PO .nightly 12/27/20 03/20/21 (Trileptal) duloxetine 30 mg capsule,delayed 30 mg PO DAILY 03/20/21 03/20/21 release (Cymbalta) albuterol sulfate 2.5 mg/3 mL mg inhalation 07/22/21 (0.083 %) solution for nebulization bupropion HCl 300 mg 24 hr tablet, 300 mg PO BEDTIME 07/22/21 extended release nebulizers 10/24/22 lisinopril 5 mg tablet 10 mg PO DAILY 02/20/23 Previous Rx's Medication Instructions Recorded hydroxychloroquine 200 mg tablet 200 mg PO BID #60 tabs 08/31/20 (Plaquenil) folic acid 1 mg tablet 1 mg PO DAILY #30 tabs 12/27/20 methotrexate sodium 2.5 mg tablet 10 mg PO QWEEK #16 tabs 02/19/21 budesonide-formoterol HFA 80 2 puff inhalation Q12H 30 days 07/22/21 mcg-4.5 mcg/actuation aerosol #10.2 grams inhaler (Symbicort) cetirizine 10 mg tablet (Zyrtec) 10 mg PO DAILY 30 days #30 tabs 10/24/22 albuterol sulfate 90 mcg/actuation 2 inh inhalation Q6H PRN shortness 02/20/23 aerosol inhaler of breath or wheezing 30 days #18 grams tiotropium bromide 2.5 2 puff inhalation DAILY 30 days #1 02/20/23 mcg/actuation mist for inhalation ea (Spiriva Respimat) varenicline 0.5 mg (11)-1 mg (42) See Rx Instructions PO PER PKG DIR 02/20/23 tablets in a dose pack (Chantix #42 ea Starting Month Box) Allergies Allergy/AdvReac Type Severity Reaction Status Date / Time No Known Allergies Allergy Mild NKA Verified 04/08/23 13:15 Review of Systems Review of Systems: Operative positives and negatives as stated in HPI PMFSH Past Medical History Source: nursing notes reviewed Medical History Asthma Asthma-COPD overlap syndrome COPD (chronic obstructive pulmonary disease) Fibromyalgia Hx of esophagitis Hx of gastritis Murmur Pulmonary nodules Sacroiliitis Spondylolisthesis Spondylosis of lumbar region without myelopathy or radiculopathy Tobacco dependence Surgical History History of cholecystectomy (~2014) History of foot surgery (~2006) History of lung surgery (~2014) Social History Social History Alcohol intake: never Patient Tobacco Use Status: Current everyday Tobacco user Tobacco use type: Cigarette Cigarette Packs Per Day: 1 Cigarettes Per Day: 5 Years Smoked: 12 years Substance Use Type: Marijuana Advance Directives: No Advance Directives Information Provided: No Physical Exam Vital Signs: Vital Signs: Last Vital Signs Temp 98.8 F 04/08/23 13:11 Pulse 64 04/08/23 13:11 Resp 16 04/08/23 13:11 BP 186/75 H 04/08/23 13:11 Pulse Ox 100 04/08/23 13:11 O2 Del Method Room Air 04/08/23 13:11 BMI result Body Mass Index 37.4 VITAL SIGNS: Reviewed. GENERAL: Elevated BMI, Well developed, well nourished, in no acute distress. HEAD: Normocephalic/atraumatic EYES: PERRLA, EOMI LUNGS: Normal breath sounds. No adventitious sounds or accessory muscle use. SpO2<100> CARDIOVASCULAR: Regular rate and rhythm without noted murmurs ABDOMEN: Soft, non-tender, non-distended with bowel sounds. MUSCULOSKELETAL: No tenderness, deformities, or effusions noted on gross inspection. EXTREMITIES: No cyanosis, clubbing or edema. LEFT KNEE: No deformity, no effusion appreciated on visual inspection, no erythema or induration and tenderness to palpation noted along the anterior edges of tibia, patient does have full range of motion and neurovascular intact distally. SKIN: Inspection of the skin reveals no rashes NEUROLOGIC: Alert and oriented x 4. Strength and sensation to light touch were grossly intact x 4. Course Course Course Narrative: This is a rapid medical exam. Deferred additional HPI, ROS, PE to primary provider. 47 yo female with history of fibromyalgia, arthritis, lupus, asthma here with complaints of posterior left knee pain x 3 weeks. No injury or trauma. will obtain x-ray, venous US VSS Medical Decision Making Medical Decision Making MDM Narrative: 47-year-old female with history and clinical presentation, DDX: Acute on chronic osteoarthritis, DVT, no clinical suspicion for cellulitis, effusion. I reviewed all investigations and venous duplex negative for DVT and otherwise my interpretation is in agreement with radiology's impression. Patient has received combination analgesics and x-ray of the knee does not demonstrate any fracture or dislocation otherwise my interpretation is in agreement with radiology's impression. A six-inch John Paul wrap was placed for compression support and patient was referred to her primary care provider for discussion on physical therapy. Differential Diagnosis Differential Diagnoses: The differential diagnosis associated with the presentation includes Please see the discussion above Admission/Observation Consideration of admission/observation: Escalation of care including admission/observation considered Please see the discussion above Radiology Impression Discussion of test interpretation with radiology: I have reviewed the radi ologist's reading. Radiologist Impression: Please see the discussion above External Record Review External record reviewed: Outpatient record, Prior outpatient labs and Prior outpatient radiology Discharge Plan Discharge Clinical Impression: Left knee pain Patient Disposition: Home, Self-Care Instructions: Knee Pain (ED) Additional Instructions: 1. Resume all home medications as prescribed. 2. Tylenol 1000 mg, orally, every 6 hours as needed for pain control. Do not exceed 4000 mg within 24 hours. 3. Please follow-up with your primary care doctor and have a further discussion regarding possible physical therapy. All of your imaging studies to and ultrasound of your leg are negative. Return to the ER for any worsening symptoms. Prescriptions: No Action folic acid 1 mg tablet 1 mg PO DAILY Qty: 30 5RF methotrexate sodium 2.5 mg tablet 10 mg PO QWEEK Qty: 16 3RF hydroxychloroquine [Plaquenil] 200 mg tablet 200 mg PO BID Qty: 60 5RF metoprolol succinate 50 mg tablet extended release 24 hr 50 mg PO DAILY duloxetine [Cymbalta] 30 mg capsule,delayed release(DR/EC) 30 mg PO DAILY albuterol sulfate 2.5 mg /3 mL (0.083 %) solution for nebulization inhalation bupropion HCl 300 mg tablet extended release 24 hr 300 mg PO BEDTIME budesonide-formoterol [Symbicort] 80-4.5 mcg/actuation HFA aerosol inhaler 2 puff inhalation Q12H 30 Days Qty: 10.2 11RF Rx Instructions: use with spacer zolpidem 5 mg tablet 5 mg PO BEDTIME PRN (Reason: Insomnia) clonazepam [Klonopin] 0.5 mg tablet 0.5 mg PO TID oxybutynin chloride 10 mg tablet extended release 24hr 10 mg PO DAILY pantoprazole [Protonix] 40 mg tablet,delayed release (DR/EC) 40 mg PO DAILY oxcarbazepine [Trileptal] 600 mg tablet 600 mg PO BID oxcarbazepine [Trileptal] 600 mg tablet 900 mg PO .nightly lisinopril 5 mg tablet 10 mg PO DAILY (DME) nebulizers Misc See Rx Instructions .ROUTE Rx Instructions: As directed cetirizine [Zyrtec] 10 mg tablet 10 mg PO DAILY 30 Days Qty: 30 11RF Spiriva Respimat 2.5 mcg/actuation mist 2 puff inhalation DAILY 30 Days Qty: 1 11RF albuterol sulfate 90 mcg/actuation HFA aerosol inhaler 2 inh inhalation Q6H PRN (Reason: shortness of breath or wheezing) 30 Days Qty: 18 12RF varenicline [Chantix Starting Month Box] 0.5 mg (11)- 1 mg (42) tablets,dose pack See Rx Instructions PO PER PKG DIR Qty: 42 0RF Rx Instructions: PO PER PKG DIR
--- OUTSIDE RECORDS SUMMARY | 2023-04-08 15:50 | XMS_ITS | Continuity of Care Document ---
Author Name Unknown Organization [facility] Address [address] [place] [address], 4t [place] [address]- Care Team Providers Care Animal Control Supervisor Name Role Phone Arnold LIM, Jeanette Cm Primary Care Physician Encounter [facility] Date(s): 09/30/22 - 12/06/22 [facility] [address] [place] [address], 4th Floor [place], [place] [address] Attending Physician: Tung Pettit MD Referring Physician: Meghan Kaur CNM Allergies, Adverse Reactions, Alerts No Known Medication Allergies Immunizations Given and Recorded Vaccine Date Status Refusal Reason influenza virus vaccine, inactivated 05/16/22 Give n influenza virus vaccine, inactivated 07/09/21 Brenden rded influenza virus vaccine, inactivated 04/28/19 Brenden rded influenza virus vaccine, inactivated 06/21/18 Brenden rded influenza virus vaccine, inactivated 06/09/17 Brenden rded influenza virus vaccine, inactivated 04/03/15 Brenden rded influenza virus vaccine, inactivated 12/06/13 Give n influenza virus vaccine, inactivated 04/30/12 Give n influenza virus vaccine, inactivated 04/25/10 Brenden rded SARS-CoV-2 (COVID-19) mRNA BNT-162b2 vac 07/09/21 Recorded SARS-CoV-2 (COVID-19) mRNA BNT-162b2 vac 01/07/21 Recorded SARS-CoV-2 (COVID-19) mRNA BNT-162b2 vac 12/17/20 Recorded Hepatitis A Adult Vaccine 07/28/19 Recorded tetanus/diphtheria/pertussis, acel(Tdap) 09/03/15 Recorded pneumococcal 23-valent vaccine 07/28/15 Given tetanus-diphtheria toxoids (Td) 10/25/12 Given Medications buPROPion 300 mg/24 hours (XL) oral tablet, extended release 1 tablet = 300 mg, By Mouth, Daily, . take in am. future refills from pcp, # 30 tablet, 2 Refills, Maintenance, 06/16/16 15:37:13, ER Tablet Start Date: 06/16/16 Status: Ordered celecoxib 200 mg oral capsule 1 capsule, By Mouth, 2 times a day, # 180 capsule, 1 Refills, Maintenance, 07/04/22 9:33:00 EST, [id number], 158, cm, 06/16/22 10:03:00 EST, Height, 103.5, kg, 05/28/21 16:21:00 EDT, Dry Weight Start Date: 07/04/22 Status: Ordered clonazePAM 0.5 mg oral tablet 1 tablet = 0.5 mg, By Mouth, 2 times a day, 0 Refills, Maintenance, 07/16/21 11:59:00 EST, Tablet, Partial fill upon patient request if the prescription is for a schedule II opioid drug. Start Date: 07/16/21 Status: Ordered Combivent Respimat 20 mcg-100 mcg/inh inhalation aerosol 1 puffs, Inhalation, 4 times a day, # 4 Gm, 0 Refills, Maintenance, 03/23/19 15:08:50 EDT, Aerosol Start Date: 03/23/19 Status: Ordered Cymbalta 30 mg oral enteric coated capsule 1 capsule = 30 mg, By Mouth, Daily in AM, # 180 capsule, 0 Refills, Maintenance, 03/23/19 15:07:50 EDT, EC Capsule Start Date: 03/23/19 Status: Ordered fexofenadine 180 mg oral tablet 1 tablet = 180 mg, By Mouth, Daily, # 90 tablet, 0 Refills, Maintenance, 07/16/21 11:22:00 EST, Tablet, Partial fill upon patient request if the prescription is for a schedule II opioid drug. Start Date: 07/16/21 Status: Ordered Folic Acid 1 tablet, Daily, 0 Refills, Maintenance, 03/18/21 13:54:00 EDT, Partial fill upon patient request if the prescription is for a schedule II opioid drug. Start Date: 03/18/21 Status: Ordered hydroxychloroquine 200 mg oral tablet 1 tablet = 200 mg, By Mouth, 2 times a day, # 60 tablet, 3 Refills, Maintenance Start Date: 9/17/12 Stop Date: 08/17/12 Status: Ordered ibuprofen 600 mg oral tablet 600 mg, 1, tablet, By Mouth, Every 6 hours, # 50 tablet, Refills 0, Tot. Refills 0, Maintenance, 10/28/22 13:55:00 EDT, Route to Pharmacy Electronically, [facility]/pharmacy #[id number], Partial fill upon patientrequest if the prescription is for a schedule II op... Start Date: 10/28/22 Status: Ordered lisinopril 5 mg oral tablet 5 mg, 1, tablet, By Mouth, Daily, # 90 tablet, Refills 2, Tot. Refills 2, Maintenance, 07/04/22 9:17:00 EST, Route to Pharmacy Electronically, [facility]/pharmacy #[id number], Partial fill upon patient request ifthe prescription is for a schedule II opioid drug.,... Start Date: 07/04/22 Status: Ordered methotrexate 2.5 mg oral tablet 4 tablet = 10 mg, By Mouth, Daily, 0 Refills, Maintenance, 07/16/21 12:10:00 EST, Partial fill uponpatient request if the prescription is for a schedule II opioid drug. Start Date: 07/16/21 Status: Ordered Metoprolol Succinate ER 50 mg oral tablet, extended release 1 tablet, By Mouth, Daily, # 90 tablet, 0 Refills, Maintenance, 11/20/22 12:05:00 EDT, [id number], 158, cm, 11/06/22 16:09:00 EDT, Height, 99.5, kg, 11/06/22 16:09:00 EDT, Dry Weight Start Date: 11/20/22 Status: Ordered [facility] Refills 0, Maintenance, Hair, Skin , Nails 1 tablet daily, 03/18/21 13:55:00 EDT, Supply Start Date: 03/18/21 Status: Ordered OXcarbazepine 600 mg oral tablet 1.5, Daily at bedtime, 0 Refills, Maintenance, 07/16/21 12:14:00 EST, Partial fill upon patient request if the prescription is for a schedule II opioid drug. Start Date: 07/16/21 Status: Ordered Oxybutynin = 10 mg, By Mouth, Daily in AM, 0 Refills, Maintenance, 03/18/21 14:05:00 EDT, Partial fill upon patient request if the prescription is for a schedule II opioid drug. Start Date: 03/18/21 Status: Ordered pantoprazole 40 mg oral delayed release tablet 1 tablet, By Mouth, Daily, # 90 tablet, 0 Refills, Maintenance, 11/05/22 15:32:00 EDT, 158, cm, 10/16/22 14:46:00 EDT, Height, 97.9, kg, 10/16/22 14:46:00 EDT, Dry Weight Start Date: 11/05/22 Status: Ordered ProAir HFA 90 mcg/inh inhalation aerosol with adapter 2, puffs, Inhalation, Every 4 hours, PRN, # 1 each, Refills 0, Tot. Refills 0, Maintenance, 05/06/18 18:29:27 EDT, Print Requisition Start Date: 05/06/18 Status: Ordered Symbicort 160mcg/4.5mcg Inhaler 2, puffs, Inhalation, 2 times a day, # 10.2 Gm, Refills 0, Maintenance, 07/16/21 11:22:00 EST, Aerosol Start Date: 07/16/21 Status: Ordered Zolpidem = 5 mg, By Mouth, Daily at bedtime, 0 Refills, Maintenance, 03/23/19 15:05:29 EDT Start Date: 03/23/19 Status: Ordered Problem List Condition Confirmation Course Effective Dates Status Health Status Informant Anxiety Confirmed Active COPD with asthma Confirmed Active Bipolar disease, chronic Confirmed Active Bulimia Confirmed Active Centrilobular emphysema Confirmed Active Ovarian cyst Confirmed Active Bulging lumbar disc Confirmed Active Electromyogram lower extremities normal 06/2022 Confirmed Active Esophagitis Confirmed Active GERD (gastroesophageal reflux disease) Confirmed Active Sacroiliitis Confirmed Active Lumbar radiculitis with facet arthropathy 1 Confirmed Active Lupus erythematosus Confirmed Active Pulmonary nodules Confirmed Active Nicotine dependence Confirmed Active PND (paroxysmal nocturnal dyspnea) Confirmed Active Polypharmacy Confirmed Active Major depression, recurrent 2 Confirmed Active Rheumatoid arthritis Confirmed Active Severe obesity (BMI 35.0-39.9) with comorbidity Confirmed Active Spondylolisthesis Confirmed Active SLE- followed by Dr Lama at [facility] Confirmed Active Tobacco abuse Confirmed Active 1normal EMG 06/2022 2Follows with [facility] Social History Social History Type Response Smoking Status Current every day amilcar noyola entered on: 07/26/15 Sex Patient Care team information Care Team Personnel Name: Leticia Arita RN Position: [facility] RN Member Role: Primary Care Nurse Name: Steph Nichols Position: [facility] RN Member Role: Primary Care Nurse Name: Jeanette Barrett MD Position: [facility] Primary Care Physician Member Role: PCP Address: Address: [facility] [place] [address]- Name: Melissa Castro RN Position: [facility] OB RN Member Role: Primary Care Nurse Name: Ely Naqvi RN Position: [facility] RN Member Role: Primary Care Nurse Name: Ana Munguia RN Position: [facility] RN Member Role: Primary Care Nurse Name: Lissa Saunders RN Position: [facility] OB RN Member Role: Primary Care Nurse Name: Alka Clifton Position: [facility] Outreach Member Role: Lifetime Consulting Physician Name: Zofia Omalley RN Position: [facility] Nursing Program Coordinator Member Role: Primary Care Nurse Care Team Related Persons Name: FADI BLAND Address: [address] [address]
--- OUTSIDE RECORDS SUMMARY | 2023-04-08 15:50 | XMS_ITS | Continuity of Care Document ---
Author Name Unknown Organization [facility] Address [address] [place] [address], 4t [place] [address]- Care Team Providers Care Calender Tender Name Role Phone Arnold LIM, Jeanette Cm Primary Care Physician Encounter [facility] Date(s): 12/18/22 - 01/17/23 [facility] [address] [facility], 4th Floor [place], [place] [address] Attending Physician: Admtr, Ar8 Admitting Physician: Admtr, Ar8 Referring Physician: Admtr, Ar8 Allergies, Adverse Reactions, Alerts No Known Medication [...] Refills, Maintenance, 07/04/22 9:33:00 EST, [facility], 158, cm, 06/16/22 10:03:00 EST, Height, 103.5, kg, 05/28/21 16:21:00 EDT, Dry Weight Start Date: 07/04/22 Status: Ordered Cetirizine 0 Refills, Maintenance, 12/18/22 10:24:00 EDT, Partial fill upon patient request if the prescription is for a schedule II opioid drug. Start Date: 12/18/22 Status: Ordered clonazePAM 0.5 mg oral tablet [...] EC Capsule Start Date: 03/23/19 Status: Ordered diclofenac 1% topical gel 1 application, Topically, 3 times a day, # 100 Gm, 0 Refills, Maintenance, 01/01/23 14:33:00 EDT, Gel, [facility]/pharmacy #[id number], Partial fill upon patient request if the prescription is for a schedule II opioid drug., 158, cm, 01/01/23 13:00:00 EDT, Height,... Start Date: 01/01/23 Stop Date: 01/08/23 Status: Ordered fexofenadine 180 mg oral tablet [...] 60 tablet, 3 Refills, Maintenance Start Date: 04/19/12 Stop Date: 08/17/12 Status: Ordered ibuprofen 600 mg oral tablet 600 mg, 1, tablet, By Mouth, Every 6 hours, # 50 tablet, Refills 0, Tot. Refills 0, Maintenance, 10/28/22 13:55:00 EDT, Route to Pharmacy Electronically, [facility]/pharmacy #[id number], Partial fill upon patientrequest if the prescription is for a schedule II op... Start Date: 10/28/22 Status: Ordered lisinopril 10 mg oral tablet 10 mg, 1, tablet, By Mouth, Daily, # 90 tablet, Refills 2, Tot. Refills 2, Maintenance, 01/14/23 9:56:00 EDT, [id number], Partial fill upon patient request if the prescription is for a schedule II opioid drug.... Start Date: 01/14/23 Status: Ordered methotrexate 2.5 mg oral tablet 4 tablet = 10 mg, By Mouth, Daily, 0 Refills, Maintenance, 07/16/21 12:10:00 EST, Partial fill uponpatient request if the prescription is for a schedule II opioid drug. Start Date: 07/16/21 Status: Ordered Metoprolol Succinate ER 50 mg oral tablet, extended release 1 tablet, By Mouth, Daily, # 90 tablet, 0 Refills, Maintenance, 11/20/22 12:05:00 EDT, [id number], 158, cm, 11/06/22 16:09:00 EDT, Height, 99.5, kg, 11/06/22 16:09:00 EDT, Dry Weight Start Date: 11/20/22 Status: Ordered Misc Rx Refills 0, Maintenance, Hair, Skin , [...] Active GERD (gastroesophageal reflux disease) Confirmed Active Hypertension Confirmed Active Sacroiliitis Confirmed Active Lumbar radiculitis with facet arthropathy 1 Confirmed Active Lupus erythematosus Confirmed Active Pulmonary nodules Confirmed Active Nicotine dependence Confirmed Active PND (paroxysmal nocturnal dyspnea) Confirmed Active Polypharmacy Confirmed Active Major depression, recurrent 2 Confirmed Active Rheumatoid arthritis Confirmed Active Severe obesity (BMI 35.0-39.9) with comorbidity Confirmed Active Spondylolisthesis Confirmed Active SLE- followed by Dr Lama at [facility] Confirmed Active Tobacco abuse Confirmed Active 1normal EMG 06/2022 2Follows with [facility] Social History Social History Type Response Smoking Status Current every day sm jazmín entered on: 07/26/15 Sex Patient Care team information Care Team Personnel Name: Leticia Arita RN Position: [facility] RN Member Role: Primary Care Nurse Name: Steph Nichols Position: [facility] RN Member Role: Primary Care Nurse Name: Jeanette Barrett MD Position: [facility] Physician - Primary Care Member Role: PCP Address: Address: [address] [place] [address] Name: Melissa Castro RN Position: [facility] OB RN Member Role: Primary Care Nurse Name: Ely Naqvi RN Position: [facility] RN Member Role: Primary Care Nurse Name: Ana Munguia RN Position: [facility] RN Member Role: Primary Care Nurse Name: Lissa Saunders RN Position: [facility] OB RN Member Role: Primary Care Nurse Name: Alka Clifton Position: [facility] Outreach Member Role: Lifetime Consulting Physician Name: oZfia Omalley RN Position: [facility] Histological Illustrator Member Role: Primary Care Nurse Care Team Related Persons Name: FADI BLAND Address: home [address] [place] [id number]
--- OUTSIDE RECORDS SUMMARY | 2023-04-08 15:50 | XMS_ITS | Continuity of Care Document ---
Author Name Unknown Organization [facility] Address [address] [facility], [place] [address]- Care Team Providers Care Private Inquiry Agent Name Role Phone Arnold LIM, Jeanette Cm Primary Care Physician Encounter [facility] [place] Date(s): 09/02/22 - 09/09/22 [facility] Muhammad[facility] [address] [facility], 4th [address] [place], [place] [address] Attending Physician: Crescencio LIM [OB], Letty Davidson Referring Physician: Kourtney Lucio Allergies, Adverse Reactions, Alerts No Known Medication [...] Refills, Maintenance, 07/04/22 9:33:00 EST, [id number], 158, cm, 06/16/22 10:03:00 EST, Height, 103.5, [...] Date: 04/19/12 Stop Date: 08/17/12 Status: Ordered Liletta 52 mg intrauterine device 1 each = 52 mg, Intrauterine, Once, # 1 each, 0 Refills, Soft Stop, 09/02/22 17:49:00 EST, [facility] [employer] [facility], Partial fill upon patient request if the prescription is for a schedule II opioid drug., 158, cm, 09/02/22 13:41:00 EST, Height, 9... Start Date: 09/02/22 Status: Ordered lisinopril 5 mg oral tablet 5 mg, 1, tablet, By Mouth, Daily, # 90 tablet, Refills 2, Tot. Refills 2, Maintenance, 07/04/22 9:17:00 EST, [id number], Partial fill upon patient request ifthe prescription is for a schedule II opioid drug.,... Start Date: 07/04/22 Status: Ordered methotrexate 2.5 mg oral tablet 4 tablet = 10 mg, By Mouth, Daily, 0 Refills, Maintenance, 07/16/21 12:10:00 EST, Partial fill uponpatient request if the prescription is for a schedule II opioid drug. Start Date: 07/16/21 Status: Ordered metoprolol 50 mg oral tablet, extended release 50 mg, 1, tablet, By Mouth, Daily, # 90 tablet, Refills 1, Tot. Refills 1, Maintenance, 05/28/22 13:02:00 EDT, [id number], Partial fill upon patient request if the prescription is for a schedule II opioid drug... Start Date: 05/28/22 Status: Ordered metoprolol succinate 50 mg oral capsule, extended release 1 capsule = 50 mg, By Mouth, Daily, # 90 capsule, 1 Refills, Maintenance, 05/27/22 13:49:00 EDT, [facility]Capsule, [id number], Partial fill upon patient request if the prescription is for a schedule II opioid drug., 158, cm, 05/16/22 11:00:00 EDT, H... Start Date: 05/27/22 Status: Ordered Misc Rx Refills 0, Maintenance, [...] tablet 1 tablet, By Mouth, Daily, # 30 tablet, 2 Refills, Maintenance, 09/01/22 21:04:00 EST, 158, cm, 08/06/22 13:29:00 EST, Height, 103.5, kg, 05/28/21 16:21:00 EDT, Dry Weight Start Date: 09/01/22 Status: Ordered ProAir HFA 90 mcg/inh inhalation [...] Active SLE- followed by Dr Lama at [facility] Confirmed Active Tobacco abuse Confirmed Active 1normal EMG 06/2022 2Follows with [facility] Vital Signs Most recent to oldest [Reference Range]: 1 2 Height 158 cm (09/02/22 1:41 PM) 158 cm (09/02/22 1:13 PM) Weight 98.3 kg (09/02/22 1:13 PM) Pulse Rate [55-90 bpm] 68 bpm (09/02/22 1:13 PM) Body Mass Index [18.5-24.99 kg/m2] 39.38 kg/m2 *>HHI* (09/02/22 1:13 PM) Blood Pressure [90-138/55-84 mm Hg] 136/ 52mm Hg (09/02/22 1:41 PM) 183/93mm Hg *H* (09/02/22 1:13 PM) Blood pressure sites Arm, right (09/02/22 1:41 PM) Arm, right (09/02/22 1:13 PM) Dry Weight 98.3 kg (09/02/22 1:13 PM) Weight Obtained Via Standing scale (09/02/22 1:13 PM) Dry Weight Obtained Via Standing scale (09/02/22 1:13 PM) Social History Social History Type Response Smoking Status Current every day amilcar noyola entered on: 07/26/15 Sex Patient Care team information Care Team Personnel Name: Leticia Arita RN Position: [facility] RN Member Role: Primary Care Nurse Name: Steph Nichols Position: [facility] RN Member Role: Primary Care Nurse Name: Jeanette Barrett MD Position: [facility] Primary Care Physician Member Role: PCP Address: Address: [facility] [place] [address]- Name: Melissa Castro RN Position: [facility] OB RN Member Role: Primary Care Nurse Name: Ely Naqvi RN Position: [facility] RN Member Role: Primary Care Nurse Name: Ana Munguia RN Position: [facility] RN Member Role: Primary Care Nurse Name: Lissa Saunders RN Position: [facility] OB RN Member Role: Primary Care Nurse Name: Alka Clifton Position: [facility] Outreach Member Role: Lifetime Consulting Physician Name: Zofia Omalley RN Position: [facility] [employer] Member Role: Primary Care Nurse Care Team Related Persons Name: FADI BLAND Address: [address] [address]
--- OUTSIDE RECORDS SUMMARY | 2023-04-08 15:50 | XMS_ITS | Continuity of Care Document ---
Author Name Unknown Organization [facility] ter Address [address] [place] [address]- Care Team Providers Care Salary Manager Name Role Phone Maximus Rivas MD Primary Care Physician En[place] [facility] [place] Date(s): 02/21/21 - 03/27/[address] [address] Attending Physician: Noble Larry MD Admitting Physician: Noble Larry MD Allergies, Adverse Reactions, Alerts No Known Medication Allergies Immunizations Given and Recorded Vaccine Date Status Refusal Reason pneumococcal 23-valent vaccine 07/28/15 Given influenza virus vaccine, inactivated 12/06/13 Give n influenza virus vaccine, inactivated 04/30/12 Give n tetanus-diphtheria toxoids (Td) 10/25/12 Given Medications buPROPion 300 mg/24 hours (XL) oral tablet, extended release 1 tablet = 300 mg, By Mouth, Daily, . take in am. future refills from pcp, # 30 tablet, 2 Refills, Maintenance, 06/16/16 15:37:13, ER Tablet Start Date: 06/16/16 Status: Ordered clonazePAM 0.5 mg oral tablet 1 tablet = 0.5 mg, By Mouth, 3 times a day, 0 Refills, Maintenance, 10/29/15 9:23:46, Tablet Start Date: 10/29/15 Status: Ordered Combivent Respimat 20 mcg-100 mcg/inh [...] EC Capsule Start Date: 03/23/19 Status: Ordered Folic Acid 1 tablet, Daily, 0 Refills, Maintenance, 03/18/21 13:54:00 EDT, Partial fill upon patient request if the prescription is for a schedule II opioid drug. Start Date: 03/18/21 Status: Ordered hydroxychloroquine 200 mg oral tablet 1 tablet = 200 mg, By Mouth, 2 times a day, # 60 tablet, 3 Refills, Maintenance Start Date: 04/19/12 Stop Date: 08/17/12 Status: Ordered Lisinopril 1 tabl;et, By Mouth, Daily at bedtime, 0 Refills, Maintenance, 03/18/21 13:54:00 EDT, Partial fill upon patient request if the prescription is for a schedule II opioid drug. Start Date: 03/18/21 Status: Ordered Lyrica 25 mg oral capsule 2 capsule = 50 mg, By Mouth, 3 times a day, 0 Refills, Maintenance, 02/26/21 13:33:00 EDT, Partial fill upon patient request if the prescription is for a schedule II opioid drug. Start Date: 02/26/21 Status: Ordered metoprolol (OP) 1 tablet, By Mouth, Daily at bedtime, 0 Refills, Maintenance, 2 Start Date: 02/26/21 Status: Ordered Misc Rx Refills 0, Maintenance, Hair, Skin , Nails 1 tablet daily, 03/18/21 13:55:00 EDT, Supply Start Date: 03/18/21 Status: Ordered OXcarbazepine 300 mg oral tablet By Mouth, 2 times a day, TAKE 1 TABLET IN THE MORNING AND 1 and 1/2 TABLETS AT NIGHT. Start Date: 10/29/15 Status: Ordered Oxybutynin = 10 mg, By Mouth, Daily in AM, 0 Refills, Maintenance, 03/18/21 14:05:00 EDT, Partial fill upon patient request if the prescription is for a schedule II opioid drug. Start Date: 03/18/21 Status: Ordered ProAir HFA 90 mcg/inh inhalation aerosol with adapter 2, puffs, Inhalation, Every 4 hours, PRN, # 1 each, Refills 0, Tot. Refills 0, Maintenance, 05/06/18 18:29:27 EDT, Print Requisition Start Date: 05/06/18 Status: Ordered Protonix 40 mg oral granule 1 each = 40 mg, By Mouth, Daily in AM, 0 Refills, Maintenance, 09/03/18 10:04:58 EST Start Date: 09/03/18 Status: Ordered Zolpidem = 5 mg, By Mouth, Daily at bedtime, 0 Refills, Maintenance, 03/23/19 15:05:29 EDT Start Date: 03/23/19 Status: Ordered Problem List Condition Effective Dates Status Health Status Inform ant Anxiety(Confirmed) Active Asthma(Confirmed) Active Bipolar disease, chronic(Confirmed) Active Constipation(Confirmed) Active Depression- therapist and ps yc at [facility](Confirmed) Active Fibromyalgia(Confirmed) Active Low back pain(Confirmed) Active Mass of ovary(Confirmed) Active Neuropathy(Confirmed) Active Obesity(Confirmed) 1 Active PAOLA (obstructive sleep apnea)(Confirmed) Active Plantar fasciitis, left(Confirmed) Active Restless leg syndrome(Confirmed) Active Rheumatoid arteritis(Confirmed) Active Smoker(Confirmed) Active SLE- followed by Dr Lama at [facility](Confirmed) Active Vaginal dryness(Confirmed) Active 1Initail Wt. 07/12/15 228 lbs. Social History Social History Type Response Smoking Status Current every day amilcar noyola entered on: 07/26/15 Sex
--- OUTSIDE RECORDS SUMMARY | 2023-04-08 15:50 | XMS_ITS | Continuity of Care Document ---
Author Name Unknown Organization [facility]ORDINATOR Oncolog y Address [address] [place] [address]- Care Team Providers Care Page Technician Name Role Phone Maximus Rivas MD Primary Care Physician Encounter [facility] Date(s): 05/28/21 - 06/27/21 [facility] On[facility] [address], [place] [address] Attending Physician: Rula Dykes Admitting Physician: Rula Dykes Referring Physician: AdmtrRula Allergies, Adverse Reactions, Alerts No Known Medication Allergies Immunizations Given and Recorded Vaccine Date Status Refusal Reason pneumococcal 23-valent vaccine 07/28/15 Given influenza virus vaccine, inactivated 12/06/13 Give n influenza virus vaccine, inactivated 04/30/12 Give n tetanus-diphtheria toxoids (Td) 10/25/12 Given Medications acetaminophen 325 mg oral tablet 975 mg, By Mouth, Every 6 hours, # 50 tablet, Refills 0, Tot. Refills 0, Maintenance, 04/01/21 17:52:00 EDT, Route to Pharmacy Electronically, [facility]/pharmacy #[id number], Partial fill upon patient request ifthe prescription is for a schedule II opioid drug.,... Start Date: 04/01/21 Status: Ordered buPROPion 300 mg/24 hours (XL) oral tablet, [...] EC Capsule Start Date: 03/23/19 Status: Ordered docusate sodium 100 mg oral tablet 1 tablet = 100 mg, By Mouth, 2 times a day, PRN for constipation, # 100 tablet, 0 Refills, Maintenance, 04/01/21 17:53:00 EDT, Tablet, [facility]/pharmacy #[id number], Partial fill upon patient request if the prescription is for a schedule II opioid drug., 157.4,... Start Date: 04/01/21 Status: Ordered fluconazole 150 mg oral tablet 1 tablet = 150 mg, By Mouth, Once, repeat dose if still having symptoms in 72 hours, # 2 tablet, 0 Refills, Soft Stop, 05/15/21 11:40:00 EDT, Tablet, [facility]/pharmacy #[id number], Partial fill upon patient request if the prescription is for a schedule II opioid... Start Date: 05/15/21 Status: Ordered Folic Acid 1 tablet, Daily, [...] 1, tablet, By Mouth, Every 6 hours, PRN, # 50 tablet, Refills 0, Tot. Refills 0, Maintenance, Pain , Mild, 04/01/21 17:52:00 EDT, Route to Pharmacy Electronically, [facility]/pharmacy #[id number], Partialfill upon patient request if the prescription is fo... Start Date: 04/01/21 Status: Ordered Lisinopril 1 tabl;et, By Mouth, [...] Maintenance, 2 Start Date: 02/26/21 Status: Ordered MiraLax oral powder for reconstitution = 17 Gm, By Mouth, Daily, dissolve in water before taking, # 255 Gm, 0 Refills, Maintenance, 04/01/21 17:53:00 EDT, REC Powder, [facility]/pharmacy #[id number], Partial fill upon patient request if the prescription is for a schedule II opioid drug., 17 Gm By Mouth... Start Date: 04/01/21 Status: Ordered [place] [facility] Rx Refills 0, Maintenance, Hair, Skin , [...] opioid drug. Start Date: 03/18/21 Status: Ordered oxyCODONE 5 mg oral tablet 5 mg, 1, tablet, By Mouth, Every 4 hours, PRN, # 5 tablet, Refills 0, Tot. Refills 0, Maintenance, Pain , Severe, 04/01/21 17:52:00 EDT, Route to Pharmacy Electronically, [facility]/pharmacy #[id number], Partial fill upon patient request if the prescription is for... Start Date: 04/01/21 Status: Ordered ProAir HFA 90 mcg/inh inhalation aerosol with adapter 2, puffs, Inhalation, Every 4 hours, PRN, # 1 each, Refills 0, Tot. Refills 0, Maintenance, 05/06/18 18:29:27 EDT, Print Requisition Start Date: 05/06/18 Status: Ordered Protonix 40 mg oral granule 1 each = 40 mg, By Mouth, Daily in AM, 0 Refills, Maintenance, 09/03/18 10:04:58 EST Start Date: 09/03/18 Status: Ordered simethicone 80 mg oral tablet 1 tablet = 80 mg, Chew, 3 times a day after meals, PRN as needed for gas, # 60 tablet, 0 Refills, Maintenance, 04/01/21 17:53:00 EDT, Tablet, [facility]/pharmacy #[id number], Partial fill upon patient request if the prescription is for a schedule II opioid drug.,... Start Date: 04/01/21 Status: Ordered Smoothie Readi-Cat 2 oral suspension See Instructions, If scan in the am, drink 1st bottle night before & 2nd bottle 90 min before scan. If scan after 12p, drink 1st bottle by 8a & 2nd bottle 90 min before. If scan after 4p, drink 1st bottle 6hrs before & 90 minutes before scan, # 2 each... Start Date: 05/28/21 Status: Ordered Zolpidem = 5 mg, By Mouth, Daily at bedtime, 0 Refills, Maintenance, 03/23/19 15:05:29 EDT Start Date: 03/23/19 Status: Ordered Problem List Condition Effective Dates Status Health Status Inform ant Anxiety(Confirmed) Active Asthma(Confirmed) Active Bipolar disease, chronic(Confirmed) Active Constipation(Confirmed) Active Depression- therapist and ps [facility](Confirmed) Active Fibromyalgia(Confirmed) Active Low back pain(Confirmed) Active Mass of ovary(Confirmed) Active Neuropathy(Confirmed) Active Obesity(Confirmed) 1 Active PAOLA (obstructive sleep apnea)(Confirmed) Active Pelvic pain(Confirmed) Active Plantar fasciitis, left(Confirmed) Active Restless leg syndrome(Confirmed) Active Rheumatoid arteritis(Confirmed) Active Smoker(Confirmed) Active Follow-up examination after gynecological surgery(Confirmed) Active SLE- followed by Dr Lama at [facility](Confirmed) Active Vaginal dryness(Confirmed) Active 1Initail Wt. 07/12/15 228 lbs. Social History Social History Type Response Smoking Status Current every day amilcar noyola entered on: 07/26/15 Sex
--- OUTSIDE RECORDS SUMMARY | 2023-04-08 15:50 | XMS_ITS | Continuity of Care Document ---
Author Name Unknown Organization [facility] ter Address [address] [place] [address]- Care Team Providers Care Ssrs Developer Name Role Phone Markie Watts Primary Care Physician Encounter [facility] Date(s): 07/21/19 - 07/21/[address] [address]- [facility] Attending Physician: Len LIM, Derrick Allergies, Adverse Reactions, Alerts No Known Medication Allergies Immunizations Given and Recorded Vaccine Date Status Refusal Reason pneumococcal 23-valent vaccine 07/28/15 Given influenza virus vaccine, inactivated 12/06/13 Give n influenza virus vaccine, inactivated 04/30/12 Give n tetanus-diphtheria toxoids (Td) 10/25/12 Given Medications Azithromycin 5 Day Dose Pack 250 mg oral tablet 1 pack/packet, By Mouth, Once, # 6 tablet, 0 Refills, Soft Stop, 04/22/19 13:47:41 EDT, Tablet Start Date: 04/22/19 Status: Ordered buPROPion 300 mg/24 hours (XL) [...] EC Capsule Start Date: 03/23/19 Status: Ordered fluticasone propionate 232 mcg/inh inhalation powder 1 puffs, Inhalation, Every 12 hours, # 1 each, 0 Refills, Maintenance, 03/23/19 15:11:02 EDT, Powder Start Date: 03/23/19 Status: Ordered hydroxychloroquine 200 mg oral tablet 1 tablet = 200 mg, By Mouth, 2 times a day, # 60 tablet, 3 Refills, Maintenance Start Date: 04/19/12 Stop Date: 08/17/12 Status: Ordered OXcarbazepine 300 mg oral tablet By Mouth, 2 times a day, TAKE 1 TABLET IN THE MORNING AND 1 and 1/2 TABLETS AT NIGHT. Start Date: 10/29/15 Status: Ordered ProAir HFA 90 mcg/inh inhalation aerosol with adapter 2, puffs, Inhalation, Every 4 hours, PRN, # 1 each, Refills 0, Tot. Refills 0, Maintenance, 05/06/18 18:29:27 EDT, Print Requisition Start Date: 05/06/18 Status: Ordered Protonix 40 mg oral granule 1 each = 40 mg, By Mouth, Daily in AM, 0 Refills, Maintenance, 09/03/18 10:04:58 EST Start Date: 09/03/18 Status: Ordered Topamax 50 mg oral tablet 1 tablet = 50 mg, By Mouth, 2 times a day, take with breakfast and dinner to control appetite. future refills from pcp, # 60 tablet, 2 Refills, Maintenance, 06/16/16 15:35:47, Tablet Start Date: 06/16/16 Status: Ordered Zolpidem = 5 mg, By Mouth, Daily at bedtime, 0 Refills, Maintenance, 03/23/19 15:05:29 EDT Start Date: 03/23/19 Status: Ordered Problem List Condition Effective Dates Status Health Status Inform ant Asthma(Confirmed) Active Bipolar disease, chronic(Confirmed) Active Constipation(Confirmed) Active Depression- therapist and ps [facility](Confirmed) Active Low back pain(Confirmed) Active Obesity(Confirmed) 1 Active PAOLA (obstructive sleep apnea)(Confirmed) Active Plantar fasciitis, left(Confirmed) Active Restless leg syndrome(Confirmed) Active Smoker(Confirmed) Active SLE- followed by Dr Lama at [facility](Confirmed) Active 1Initail Wt. 07/12/15 228 lbs. Social History Social History Type Response Smoking Status Current every day amiclar noyola entered on: 07/26/15 Sex
--- OUTSIDE RECORDS SUMMARY | 2023-04-08 15:51 | XMS_ITS | Continuity of Care Document ---
Author Name Unknown Organization [facility] Malcolm bustamante's [facility] Address [address], [address] [place] [address]- Care Team Providers Care Intranet Developer Name Role Phone Arnold LIM, Jeanette Cm Primary Care Physician [phone] Encounter [facility] Date(s[facility] 09/03/22 - [facility] [address] [place], [place] [address] Allergies, Adverse Reactions, Alerts No Known Medication Allergies Immunizations Given and Recorded Vaccine Date Status Refusal Reason influenza virus vaccine, inactivated 05/16/22 Give n influenza virus vaccine, inactivated 07/09/21 Brendne rded influenza virus vaccine, inactivated 04/28/19 Brenden [...] Refills, Maintenance, 07/04/22 9:33:00 EST, [id number], 158, cm, 06/16/22 10:03:00 EST, Height, 103.5, [...] 0 Refills, Soft Stop, 09/02/22 17:49:00 EST, [facility], Partial fill upon patient request if the prescription is for a schedule II opioid drug., 158, cm, 09/02/22 13:41:00 EST, Height, 9... Start Date: 09/02/22 Status: Ordered Liletta 52 mg intrauterine device 1 each = 52 mg, Vaginally, Once, # 1 each, 0 Refills, Soft Stop, 09/30/22 10:55:00 EST, [facility] Partial fill upon patient request if the prescription is for a schedule II opioiddrug. This is a replacement iud, see notes from 09/04... Start Date: 09/30/22 Status: Ordered lisinopril 5 mg oral tablet [...] capsule, 1 Refills, Maintenance, 05/27/22 13:49:00 EDT, ERClinsday, [id number], Partial fill upon patient request if the prescription is for a schedule II opioid drug., 158, cm, 05/16/22 11:00:00 EDT, H... Start Date: 05/27/22 Status: Ordered [facility] Rx Refills 0, Maintenance, Hair, Skin , [...] Active SLE- followed by Dr Lama at [facility] Confirmed Active Tobacco abuse Confirmed Active 1normal EMG 06/2022 2Follows with N Social History Social History Type Response Smoking Status Current every day oker entered on: 07/26/15 Sex Patient Care team information Care Team Personnel Name: Leticia Arita RN Position: [facility] RN Member Role: Primary Care Nurse Name: Steph Nichols Position: [facility] RN Member Role: Primary Care Nurse Name: Jeanette Barrett MD Position: [facility] Primary Care Physician Member Role: PCP Address: Address: [address] [place] [address] [place] [address]- Name: Melissa Castro RN Position: [facility] OB RN Member Role: Primary Care Nurse Name: Ely Naqvi RN Position: [facility] RN Member Role: Primary Care Nurse Name: Ana Munguia RN Position: [facility] RN Member Role: Primary Care Nurse Name: Lissa Saunders RN Position: [facility] OB RN Member Role: Primary Care Nurse Name: Alka Clifton Position: [facility] Outreach Member Role: Lifetime Consulting Physician Name: Zofia Omalley RN Position: [facility] Hospital Welder Experimental Member Role: Primary Care Nurse Care Team Related Persons Name: FADI BLAND Address: [address] [address]
--- OUTSIDE RECORDS SUMMARY | 2023-04-08 15:51 | XMS_ITS | Continuity of Care Document ---
Author Name Unknown Organization [facility] Address [address] [place] [address]- Care Team Providers Care Security Police Officer Name Role Phone Arnold LIM, Jeanette Cm Primary Care Physician Encounter [facility] Date(s): 06/11/22 - 07/11/22 [facility] [address] [address] Attending Physician: Admfrancheska, Rula Admitting Physician: Admtr, [id number] Referring Physician: Admtr, [...] Refills, Maintenance, 07/04/22 9:33:00 EST, [id number], 158, cm, 06/16/22 10:03:00 EST, Height, 103.5, [...] Date: 04/19/12 Stop Date: 08/17/12 Status: Ordered lisinopril 5 mg oral tablet 5 mg, 1, tablet, By Mouth, Daily, # 90 tablet, Refills 2, Tot. Refills 2, Maintenance, 07/04/22 9:17:00 EST, Route to Pharmacy Electronically, [facility]/pharmacy #[id number], Partial fill upon patient request ifthe [...] 1 Refills, Maintenance, 05/27/22 13:49:00 EDT, ERCapsule, [facility]/pharmacy #[id number], Partial fill upon patient request if [...] 05/06/18 Status: Ordered Protonix 40 mg oral delayed release tablet 1 tablet = 40 mg, By Mouth, Daily, # 30 tablet, 2 Refills, Maintenance, 11/05/22 10:40:00 EDT, EC Tablet, 158, cm, 05/16/22 11:00:00 EDT, Height, 103.5, kg, 05/28/21 16:21:00 EDT, Dry Weight Start Date: 11/05/22 Status: Ordered Symbicort 160mcg/4.5mcg Inhaler 2, puffs, [...] Confirmed Active Bulging lumbar disc Confirmed Active Drug abuse Confirmed Active Electromyogram lower extremities normal 06/2022 Confirmed Active Esophagitis Confirmed Active GERD (gastroesophageal reflux disease) Confirmed Active Sacroiliitis Confirmed Active Lumbar radiculitis with facet arthropathy 1 Confirmed Active Lupus erythematosus Confirmed Active Mild intermittent asthma Confirmed Active Pulmonary nodules Confirmed Active Nicotine dependence Confirmed Active Obese class II Confirmed Active PND (paroxysmal nocturnal dyspnea) Confirmed Active Polypharmacy Confirmed Active Major depression, recurrent 2 Confirmed Active Rheumatoid arthritis Confirmed Active Spondylolisthesis Confirmed Active SLE- followed by Dr Lama at [facility] Confirmed Active Tobacco abuse Confirmed Active 1normal EMG 06/2022 2Follows with [facility] Social History Social History Type Response Smoking Status Current every day amilcar noyola entered on: 07/26/15 Sex Patient Care team information Care Team Personnel Name: Leticia Arita RN Position: [facility] RN Member Role: Primary Care Nurse Name: Steph Nichols Position: [facility] RN Member Role: Primary Care Nurse Name: Jeanette Barrett MD Position: [facility] Primary Care Physician Member Role: PCP Address: Address: [facility] [place] [address]- Name: Melissa Castro RN Position: [facility] OB RN Member Role: Primary Care Nurse Name: Ely Naqvi RN Position: [facility] RN Member Role: Primary Care Nurse Name: Ana Munguia RN Position: [facility] RN Member Role: Primary Care Nurse Name: Lissa Saunders RN Position: [facility] OB RN Member Role: Primary Care Nurse Name: Alka Clifton Position: [facility] Outreach Member Role: Lifetime Consulting Physician Name: Zofia Omalley RN Position: [facility] Hospital Supervisor Research Kennel Member Role: Primary Care Nurse Care Team Related Persons Name: FADI BLAND Address: [address] [address]
--- OUTSIDE RECORDS SUMMARY | 2023-04-08 15:51 | XMS_ITS | Continuity of Care Document ---
Author Name Unknown Organization [facility] Malcolm Lema Address [address], [address] [place] [address]- Care Team Providers Care Department Mgr Name Role Phone Arnold LIM, Jeanette Cm Primary Care Physician Encounter [facility] Date(s): 11/06/22 - 12/06/22 [facility] Malcolm Salazars [facility] [address]th [address] [place], [place] [address] Allergies, Adverse Reactions, Alerts No Known Medication [...] pcp, # 30 tablet, 2 Refills, Maintenance, 11/14/16 15:37:13, ER Tablet Start Date: 06/16/16 Status: Ordered celecoxib 200 mg oral capsule 1 capsule, By Mouth, 2 times a day, # 180 capsule, 1 Refills, Maintenance, 07/04/22 9:33:00 EST, [id number], 158, cm, 06/16/22 10:03:00 EST, Height, 103.5, [...] 10/28/22 13:55:00 EDT, Route to Pharmacy Electronically, [facility]/pharmacy #[id number], Partial fill upon patientrequest if the prescription is for a schedule II op... Start Date: 10/28/22 Status: Ordered lisinopril 5 mg oral tablet 5 mg, 1, tablet, By Mouth, Daily, # 90 tablet, Refills 2, Tot. Refills 2, Maintenance, 07/04/22 9:17:00 EST, Route to Pharmacy Electronically, [facility]/pharmacy #[id number], Partial fill upon patient request [...] Refills, Maintenance, 11/20/22 12:05:00 EDT, [id number], 158, cm, 11/06/22 16:09:00 EDT, Height, 99.5, kg, 11/06/22 16:09:00 EDT, Dry Weight Start Date: 11/20/22 Status: [facility] Ref[facility], Maintenance, Hair, Skin , [...] Active SLE- followed by Dr Lama at [facility] Confirmed Active Tobacco abuse Confirmed Active 1normal EMG 06/2022 2Follows with [facility] Social History Social History Type Response Smoking Status Current every day amilcar noyola entered on: 07/26/15 Sex Patient Care team information Care Team Personnel Name: Leticia Arita RN Position: S RN Member Role: Primary Care Nurse Name: Steph Nichols Position: [facility] RN Member Role: Primary Care Nurse Name: Jeanette Barrett MD Position: [facility] Primary Care Physician Member Role: PCP Address: Address: [facility] [place] [address]- Name: Melissa Castro RN Position: [facility] OB RN Member Role: Primary Care Nurse Name: Eyl Naqvi RN Position: [facility] RN Member Role: Primary Care Nurse Name: Ana Munguia RN Position: [facility] RN Member Role: Primary Care Nurse Name: Lissa Saunders RN Position: [facility] OB RN Member Role: Primary Care Nurse Name: Alka Clifton Position: [facility] Outreach Member Role: Lifetime Consulting Physician Name: Zofia Omalley RN Position: [facility] Fire Hose Curer Member Role: Primary Care Nurse Care Team Related Persons Name: FADI BLAND Address: home [address] [place] [address]
--- OUTSIDE RECORDS SUMMARY | 2023-04-08 15:51 | XMS_ITS | Continuity of Care Document ---
Author Name Unknown Organization [facility] Address [address] [place] [address]- Care Team Providers Care Transition Mgr Rn Name Role Phone Markie Watts Primary Care Physician En[place] [facility] [id number] Date(s): 11/08/19 - 11/15/19 [facility] [address] [place] [address]- [facility] Attending Physician: González LIM, Tiago Elias Referring Physician: Markie Watts Allergies, Adverse Reactions, Alerts No Known Medication [...] EDT, Tablet Start Date: 04/22/19 Status: Ordered Bactrim DS 800 mg-160 mg oral tablet 1 tablet, By Mouth, 2 times a day, for 10 days, # 20 tablet, 0 Refills, Acute 11/18/19 12:15:00 EDT, 11/08/19 12:15:00 EDT, Tablet, [id number], 1 tablet By Mouth 2 times a day,x10 days, 159, cm, 11/08/19 11:56:00 EDT, Height, 98.6, kg, ... Start Date: 11/08/19 Stop Date: 11/18/19 Status: Ordered buPROPion 300 mg/24 hours (XL) [...] Active Constipation(Confirmed) Active Depression- therapist and ps [facility](Confirmed) Active Low back pain(Confirmed) Active Obesity(Confirmed) 1 Active PAOLA (obstructive sleep apnea)(Confirmed) Active Plantar fasciitis, left(Confirmed) Active Restless leg syndrome(Confirmed) Active Smoker(Confirmed) Active SLE- followed by Dr Lama at [facility](Confirmed) Active 1Initail Wt. 07/12/15 228 lbs. Vital Signs Most recent to oldest [Reference Range]: 1 Height 159 cm (11/08/19 11:56 AM) Oxygen Saturation [94-100 %] 100 % (11/08/19 11:56 AM) Pulse Rate [55-90 bpm] 91 bpm *H* (11/08/19 11:56 AM) Blood Pressure [90-138/55-84 mm Hg] 103/ 56mm Hg (11/08/19 11:56 AM) Respiratory Rate [16-30 br/min] 21 br/mi n (11/08/19 11:56 AM) Temperature [96.8-100.4 DegF] 98.9 DegF (11/08/19 11:56 AM) Mode of Delivery (Oxygen) Room air (11/08/19 11:56 AM) Blood pressure sites Arm, left (11/08/19 11:56 AM) Temperature Route Oral (11/08/19 11:56 AM) Social History Social History Type Response Smoking Status Current every day amilcar noyola entered on: 07/26/15 Sex
--- OUTSIDE RECORDS SUMMARY | 2023-04-08 15:51 | XMS_ITS | Continuity of Care Document ---
Author Name Unknown Organization [facility] [place] [facility] PRESSER Oncolog y Address [address] [place] [address]- Care Team Providers Care Web Support Engineer Name Role Phone Arnold LIM, Jeanette Cm Primary Care Physician Encounter [facility] Date(s): 07/18/21 - 08/17/21 [facility] [place] [facility] Oncology [address] [place] [id number] Allergies, Adverse Reactions, Alerts No Known Medication Allergies Immunizations Given and Recorded Vaccine Date Status Refusal Reason influenza virus vaccine, inactivated 07/09/21 Brenden rded [...] Given tetanus-diphtheria toxoids (Td) 10/25/12 Given Medications acetaminophen 325 mg oral tablet 975 mg, By Mouth, Every 6 hours, # 50 tablet, Refills 0, Tot. Refills 0, Maintenance, 04/01/21 17:52:00 EDT, Route to Pharmacy Electronically, [facility]/pharmacy #[id number], Partial fill upon patient request ifthe prescription is for a schedule II opioid drug.,... Start Date: 04/01/21 Status: Ordered buPROPion 300 mg/24 hours (XL) oral tablet, extended release 1 tablet = 300 mg, By Mouth, Daily, . take in am. future refills from pcp, # 30 tablet, 2 Refills, Maintenance, 06/16/16 15:37:13, ER Tablet Start Date: 06/16/16 Status: Ordered Combivent Respimat 20 mcg-100 mcg/inh [...] 04/01/21 17:52:00 EDT, Route to Pharmacy Electronically, [facility]/pharmacy #[id number], Partialfill upon patient request if the prescription is fo... Start Date: 04/01/21 Status: Ordered Misc Rx Refills 0, Maintenance, Hair, Skin , Nails 1 tablet daily, 03/18/21 13:55:00 EDT, Supply Start Date: 03/18/21 Status: Ordered Oxybutynin = 10 mg, By [...] Status Health Status Inform ant Anxiety(Confirmed) Active COPD with asthma(Confirmed) Active Bipolar disease, chronic(Confirmed) Active Bulimia(Confirmed) Active Centrilobular emphysema(Confirmed) Active Ovarian cyst(Confirmed) Active Bulging lumbar disc(Confirmed) Active Drug abuse(Confirmed) Active Esophagitis(Confirmed) Active Gastritis(Confirmed) Active GERD (gastroesophageal reflu x disease)(Confirmed) Active Hypoxia(Confirmed) Active Sacroiliitis(Confirmed) Active Lumbar radiculitis with face t arthropathy(Confirmed) Active 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) Active Lupus erythematosus(Confirmed) Active Mild intermittent asthma(Confirmed) Active Pulmonary nodules(Confirmed) Active Nicotine dependence(Confirmed) Active PND (paroxysmal nocturnal dyspnea)(Confirmed) Active Polypharmacy(Confirmed) Active Major depression, recurrent( Confirmed) 1 Active Rheumatoid arthritis(Confirmed) Active Severe obesity(Confirmed) Active Spondylolisthesis(Confirmed) Active SLE- followed by Dr Lama at [facility](Confirmed) Active Tobacco abuse(Confirmed) Active 1Follows with [facility] Social History Social History Type Response Smoking Status Current every day amilcar noyola entered on: 07/26/15 Sex
--- OUTSIDE RECORDS SUMMARY | 2023-04-08 15:51 | XMS_ITS | Continuity of Care Document ---
Author Name Unknown Organization [facility] Address [address] [place] [address]- Care Team Providers Care Stonecutter Apprentice Hand Name Role Phone Markie Watts Primary Care Physician [phone] Encounter [facility] Date(s): 11/08/19 - 11/18/19 [facility] [address] [place] [address]- [facility] Attending Physician: Rula Dykes Admitting Physician: AdmRula pritchard Referring Physician: AdmtrRula Allergies, Adverse Reactions, Alerts [...] Active Depression- therapist and ps yc at [facility](Confirmed) Active Low back pain(Confirmed) Active Obesity(Confirmed) 1 Active PAOLA (obstructive sleep apnea)(Confirmed) Active Plantar fasciitis, left(Confirmed) Active Restless leg syndrome(Confirmed) Active Smoker(Confirmed) Active SLE- followed by Dr Lama at [facility](Confirmed) Active 1Initail Wt. 07/12/15 228 lbs. Social History Social History Type Response Smoking Status Current every day amilcar noyola entered on: 07/26/15 Sex
--- OUTSIDE RECORDS SUMMARY | 2023-04-08 15:51 | XMS_ITS | Continuity of Care Document ---
Author Name Unknown Organization [facility] ter Address [address] [place] [address]- Care Team Providers Care Social Media Marketing Manager Name Role Phone Maximus Rivas MD Primary Care Physician [place] [facility] 04/01/21 - 04/01/[address] [id number] Discharge Disposition: A-D/C Home Attending Physician: Amari Chow MD Admitting Physician: Amari Chow MD Referring Physician: Amari Chow MD Allergies, Adverse Reactions, Alerts No Known [...] 04/01/21 17:52:00 EDT, Route to Pharmacy Electronically, [facility]/pharmacy #[id number], Partial fill upon patient request ifthe [...] 0 Refills, Maintenance, 04/01/21 17:53:00 EDT, Tablet, [facility]/pharmacy #[id number], Partial fill upon patient request if the prescription is for a schedule II opioid drug., 157.4,... Start Date: 04/01/21 Status: Ordered Folic Acid 1 tablet, Daily, [...] 04/01/21 17:52:00 EDT, Route to Pharmacy Electronically, [facility]/pharmacy #[id number], Partialfill upon patient request if the [...] 3 times a day, 0 Refills, Maintenance, 07/27/21 13:33:00 EDT, Partial fill upon patient request [...] Refills, Maintenance, 04/01/21 17:53:00 EDT, REC Powder, [facility]/pharmacy #[id number], Partial fill upon patient request if the prescription is for a schedule II opioid drug., 17 Gm By Mouth... Start Date: 04/01/21 Status: Ordered [facility] Rx Refills 0, [...] 04/01/21 17:52:00 EDT, Route to Pharmacy Electronically, [facility]/pharmacy #[id number], Partial fill upon patient request if [...] 0 Refills, Maintenance, 04/01/21 17:53:00 EDT, Tablet, [facility]/pharmacy #[id number], Partial fill upon patient request if the prescription is for a schedule II opioid drug.,... Start Date: 04/01/21 Status: Ordered Zolpidem = 5 mg, By Mouth, Daily at bedtime, 0 Refills, Maintenance, 03/23/19 15:05:29 EDT Start Date: 03/23/19 Status: Ordered Problem List Condition Effective Dates Status Health Status Inform ant Anxiety(Confirmed) Active Asthma(Confirmed) Active Bipolar disease, chronic(Confirmed) Active Constipation(Confirmed) Active Depression- therapist and ps [facility](Confirmed) Active Fibromyalgia(Confirmed) Active Low back pain(Confirmed) Active Mass of ovary(Confirmed) Active Neuropathy(Confirmed) Active Obesity(Confirmed) 1 Active PAOLA (obstructive sleep apnea)(Confirmed) Active Plantar fasciitis, left(Confirmed) Active Restless leg syndrome(Confirmed) Active Rheumatoid arteritis(Confirmed) Active Smoker(Confirmed) Active SLE- followed by Dr Lama at [facility](Confirmed) Active Vaginal dryness(Confirmed) Active 1Initail Wt. 07/12/15 228 lbs. Vital Signs Most recent to oldest [Reference Range]: 1 2 3 Height 157.4 cm (04/01/21 8:00 PM) 157.4 cm (04/01/21 7:35 PM) 157.4 cm (04/01/21 1:11 PM) Weight 105.6 kg (04/01/21 8:43 PM) 105.6 kg (04/01/21 7:35 PM) 100 kg (04/01/21 1:11 PM) Oxygen Saturation [94-100 %] 98 % (04/01/21 8:00 PM) 98 % (04/01/21 6:45 PM) 96 % (04/01/21 6:00 PM) Pulse Rate [55-90 bpm] 78 bpm (04/01/21 8:00 PM) 78 bpm (04/01/21 7:35 PM) 76 bpm (8/30/21 1:11 PM) Body Mass Index [18.5-24.99] 42.62 *>HHI* (04/01/21 7:35 PM) 40.36 *>HHI* (04/01/21 1:11 PM) 40.36 *>HHI* (03/18/21 2:36 PM) Blood Pressure [90-138/55-84 mm Hg] 123/65mm Hg (04/01/21 8:00 PM) 123/65mm Hg (04/01/21 7:35 PM) 124/75mm Hg (04/01/21 6:45 PM) Respiratory Rate [16-30 br/min] 20 br/min (04/01/21 8:00 PM) 20 br/min (04/01/21 7:35 PM) 16 br/min (04/01/21 6:45 PM) Temperature [96.8-100.4 DegF] 98.0 DegF (04/01/21 8:00 PM) 98 DegF (04/01/21 7:35 PM) 98.4 DegF (04/01/21 6:45 PM) Liters per Minute 2 L/min (04/01/21 4:45 PM) 6 L/min (04/01/21 4:15 PM) 6 L/min (04/01/21 4:00 PM) Mode of Delivery (Oxygen) Room air (04/01/21 8:00 PM) Room air (04/01/21 6:45 PM) Room air (04/01/21 6:00 PM) Blood pressure sites Arm, right (04/01/21 7:35 PM) Arm, right (04/01/21 6:45 PM) Arm, right (04/01/21 4:45 PM) Temperature Route Oral (04/01/21 8:00 PM) Oral (04/01/21 7:35 PM) Temporal (04/01/21 6:45 PM) Dry Weight 105.6 kg (04/01/21 7:35 PM) 99.6 kg (04/01/21 1:11 PM) 100 kg (03/18/21 2:36 PM) Weight Obtained Via Patient/family stated (03/18/21 2:36 PM) Dry Weight Obtained Via Patient/family stated (03/18/21 2:36 PM) Social History Social History Type Response Smoking Status Current every day [email or web address] [email or web address] entered on: 07/26/15 Sex
--- OUTSIDE RECORDS SUMMARY | 2023-04-08 15:51 | XMS_ITS | Continuity of Care Document ---
Author Name Unknown Organization [facility] ter Address [address] [place] [address]- Care Team Providers Care Assistant Men'S Soccer Coach Name Role Phone Arnold LIM, Jeanette Cm Primary Care Physician Encounter [facility] Date(s): 06/14/21 - 07/25/[address] [id number] Attending Physician: Pepper MEDINA, Whit Rocha Admitting Physician: Pepper MEDINA, Whit Rocha Referring Physician: Pepper ROBOTICS ENGINEER, Whit Rocha Allergies, Adverse Reactions, Alerts No Known Medication [...] 04/01/21 17:52:00 EDT, Route to Pharmacy Electronically, [facility]/pharmacy #[id number], Partial fill upon patient request ifthe [...] 04/01/21 17:52:00 EDT, Route to Pharmacy Electronically, [facility]/pharmacy #[id number], Partialfill upon patient request if the [...] SLE- followed by Dr Lama at [facility](Confirmed) Active Tobacco abuse(Confirmed) Active 1Follows with [facility] Social History Social History Type Response Smoking Status Current every day amilcar [email or web address] entered on: 07/26/15 Sex
--- OUTSIDE RECORDS SUMMARY | 2023-04-08 15:51 | XMS_ITS | Continuity of Care Document ---
Author Name Unknown Organization [facility] Address [address] [place] [address]- Care Team Providers Care Copier Field Service Technician Name Role Phone Markie Watts Primary Care Physician Encounter [facility] R [id number] Date(s): 01/13/21 - 01/20/21 [facility] [address] [place], [place] [address] Attending Physician: Bam Wei MD Referring Physician: Markie Watts Allergies, Adverse Reactions, [...] Date: 04/19/12 Stop Date: 08/17/12 Status: Ordered Keflex monohydrate 500 mg oral capsule 1 capsule = 500 mg, By Mouth, Every 8 hours, for 10 days, # 30 capsule, 0 Refills, Acute 01/23/21 10:07:00 EDT, 01/13/21 10:07:00 EDT, Capsule, [facility]/pharmacy #[id number], Partial fill upon patient request if the prescription is for a schedule II opioid drug.... Start Date: 01/13/21 Stop Date: 01/23/21 Status: Ordered OXcarbazepine 300 mg oral tablet [...] Active Constipation(Confirmed) Active Depression- therapist and ps [facility](Confirmed) Active Low back pain(Confirmed) Active Obesity(Confirmed) 1 Active PAOLA (obstructive sleep apnea)(Confirmed) Active Plantar fasciitis, left(Confirmed) Active Restless leg syndrome(Confirmed) Active Smoker(Confirmed) Active SLE- followed by Dr Lama at [facility](Confirmed) Active 1Initail Wt. 07/12/15 228 lbs. Vital Signs Most recent to oldest [Reference Range]: 1 Height 159 cm (01/13/21 9:47 AM) Weight 106.0 kg (01/13/21 9:47 AM) Oxygen Saturation [94-100 %] 100 % (01/13/21 9:47 AM) Pulse Rate [55-90 bpm] 80 bpm (01/13/21 9:47 AM) Body Mass Index [18.5-24.99] 41.93 *>HHI* (01/13/21 9:47 AM) Blood Pressure [90-138/55-84 mm Hg] 134/ 58mm Hg (01/13/21 9:47 AM) Respiratory Rate [16-30 br/min] 16 br/mi n (01/13/21 9:47 AM) Temperature [96.8-100.4 DegF] 98.1 DegF (01/13/21 9:47 AM) Mode of Delivery (Oxygen) Room air (01/13/21 9:47 AM) Blood pressure sites Arm, right (01/13/21 9:47 AM) Temperature Route Temporal (01/13/21 9:47 AM) Dry Weight 106.0 kg (01/13/21 9:47 AM) Weight Obtained Via Standing scale (01/13/21 9:47 AM) Dry Weight Obtained Via Standing scale (01/13/21 9:47 AM) Social History Social History Type Response Smoking Status Current every day amilcar [email or web address] entered on: 07/26/15 Sex
--- OUTSIDE RECORDS SUMMARY | 2023-04-08 15:51 | XMS_ITS | Continuity of Care Document ---
Author Name Unknown Organization [facility] Malcolm [facility] Address [address], [address] [place] [address]- Care Team Providers Care Die Trouble Shooter Name Role Phone Jeanette Barrett MD Primary Care Physician Encounter [facility] Date(s): 08/06/22 - 08/13/22 [facility]col[facility]ustavo MuhammadAcousticeyes [facility] [address] [place], [place] [address] Attending Physician: Giovani Medina MD Referring Physician: Jeanette Barrett MD Allergies, Adverse Reactions, Alerts No Known [...] Refills, Maintenance, 07/04/22 9:33:00 EST, [id number], 158, cm, 06/16/22 10:03:00 EST, Height, 103.5, [...] 07/04/22 9:17:00 EST, Route to Pharmacy Electronically, [facility]/pharmacy #[id number], Partial fill upon patient request ifthe [...] 1 Refills, Maintenance, 05/27/22 13:49:00 EDT, ERCapsule, [facility]/pharmacy #1972, Partial fill upon patient request [...] Active SLE- followed by Dr Lama at [facility] Confirmed Active Tobacco abuse Confirmed Active 1normal EMG 06/2022 2Follows with [facility] Vital Signs Most recent to oldest [Reference Range]: 1 Height 158 cm (08/06/22 1:29 PM) Weight 98.18 kg (08/06/22 1:29 PM) Body Mass Index [18.5-24.99 kg/m2] 39.33 kg/m2 *>HHI* (08/06/22 1:29 PM) Blood Pressure [90-138/55-84 mm Hg] 150/ 65mm Hg *H* (08/06/22 1:29 PM) Blood pressure sites Arm, left (08/06/22 1:29 PM) Weight Obtained Via Standing scale (08/06/22 1:29 PM) Social History Social History Type Response Smoking Status Current every day sm [email or web address] entered on: 07/26/15 Sex Patient Care team information Care Team Personnel Name: Leticia Arita RN Position: [facility] RN Member Role: Primary Care Nurse Name: Steph Nichols Position: [facility] RN Member Role: Primary Care Nurse Name: Jeanette Barrett MD Position: [facility] Primary Care Physician Member Role: PCP Address: Address: [address] Name: Melissa Castro RN Position: [facility] OB RN Member Role: Primary Care Nurse Name: Ely Naqvi RN Position: [facility] RN Member Role: Primary Care Nurse Name: Ana Munguia RN Position: [facility] RN Member Role: Primary Care Nurse Name: Lissa Saunders RN Position: [facility] OB RN Member Role: Primary Care Nurse Name: Alka Clifton Position: [facility] Outreach Member Role: Lifetime Consulting Physician Name: Zofia Omalley RN Position: [facility] Hospital Adaptive Physical Education Specialist Member Role: Primary Care Nurse Care Team Related Persons Name: FADI BLAND Address: [address] [address]
--- OUTSIDE RECORDS SUMMARY | 2023-04-08 15:51 | XMS_ITS | Continuity of Care Document ---
Author Name Unknown Organization [facility] Address [address], [address] [place] [address]- Care Team Providers Care Switch Cleaner Name Role Phone Arnold LIM, Jeanette Cm Primary Care Physician Encounter [facility] Date(s): 12/18/22 - 12/25/22 [facility] [place] Muhammad[facility]aceutical[facility] [address] [place], [place] [address] Attending Physician: Daniela Willoughby MD Referring Physician: Meghan Kaur CNM Allergies, [...] Refills, Maintenance, 07/04/22 9:33:00 EST, [id number], 158, cm, 06/16/22 10:03:00 EST, Height, 103.5, [...] 10/28/22 13:55:00 EDT, Route to Pharmacy Electronically, [facility]/pharmacy #[id number], Partial fill upon patientrequest if the prescription is for a schedule II op... Start Date: 10/28/22 Status: Ordered lisinopril 5 mg oral tablet 5 mg, 1, tablet, By Mouth, Daily, # 90 tablet, Refills 2, Tot. Refills 2, Maintenance, 07/04/22 9:17:00 EST, Route to Pharmacy Electronically, [facility]/pharmacy #1972, Partial fill upon patient [...] tablet, 0 Refills, Maintenance, 11/20/22 12:05:00 EDT, [facility], 158, cm, 11/06/22 16:09:00 EDT, Height, 99.5, [...] Active SLE- followed by Dr Lama at [facility] Confirmed Active Tobacco abuse Confirmed Active 1normal EMG 06/[address] [facility] Vital Signs Most recent to oldest [Reference Range]: 1 Height 158 cm (12/18/22 10:20 AM) Weight 98.5 kg (12/18/22 10:20 AM) Body Mass Index [18.5-24.99 kg/m2] 39.46 kg/m2 *>HHI* (12/18/22 10:20 AM) Blood Pressure [90-138/55-84 mm Hg] 157/ 80mm Hg *H* (12/18/22 10:20 AM) Blood pressure sites Arm, right (12/18/22 10:20 AM) Weight Obtained Via Standing scale (12/18/22 10:20 AM) Social History Social History Type Response Smoking Status Current every day amilcar noyola entered on: 07/26/15 Sex Patient Care team information Care Team Personnel Name: Leticia Arita RN Position: [facility] RN Member Role: Primary Care Nurse Name: Steph Nichols Position: [facility] RN Member Role: Primary Care Nurse Name: Jeanette Barrett MD Position: [facility] Physician - Primary Care Member Role: PCP Address: Address: [address] [place] [address]- Name: Melissa Castro RN Position: [facility] OB RN Member Role: Primary Care Nurse Name: Ely Naqvi RN Position: [facility] RN Member Role: Primary Care Nurse Name: Ana Munguia RN Position: [facility] RN Member Role: Primary Care Nurse Name: Lissa Saunders RN Position: [facility] OB RN Member Role: Primary Care Nurse Name: Alka Clifton Position: [facility] Outreach Member Role: Lifetime Consulting Physician Name: Zofia Omalley RN Position: [facility] Hospital Residence Hall Director Member Role: Primary Care Nurse Care Team Related Persons Name: BLANDFADI STERN Address: [place] [address]
--- OUTSIDE RECORDS SUMMARY | 2023-04-08 15:51 | XMS_ITS | Continuity of Care Document ---
Author Name Unknown Organization [facility] Address [address] [place] [address]- Care Team Providers Care Submarine Cable Equipment Technician Name Role Phone Markie Watts Primary Care Physician Encounter [facility] Date(s): 11/18/19 - 11/28/19 [facility] [address] [place] [address] [facility] Attending Physician: Rula Dykes Admitting Physician: AdmRula [...] Active Depression- therapist and ps yc at [facility](Confirmed) Active Low back pain(Confirmed) Active Obesity(Confirmed) 1 Active PAOLA (obstructive sleep apnea)(Confirmed) Active Plantar fasciitis, left(Confirmed) Active Restless leg syndrome(Confirmed) Active Smoker(Confirmed) Active SLE- followed by Dr Lama at [facility](Confirmed) Active 1Initail Wt. 07/12/15 228 lbs. Social History Social History Type Response Smoking Status Current every day amilcar noyola entered on: 07/26/15 Sex
--- OUTSIDE RECORDS SUMMARY | 2023-04-08 15:51 | XMS_ITS | Continuity of Care Document ---
Author Name Unknown Organization [facility] Address [address] [place] [address]- Care Team Providers Care Open Cut Examiner Name Role Phone Jeanette Barrett MD Primary Care Physician Encounter [facility] Date(s): 05/08/22 - 06/07/22 [facility] [address] [place] [address] Attending Physician: AdmRula pritchard Admitting Physician: AdmtrRula Referring Physician: Admtr, Ar8 Allergies, Adverse Reactions, [...] Ordered celecoxib 200 mg oral capsule 1 capsule = 200 mg, By Mouth, 2 times a day, # 180 capsule, 1 Refills, Maintenance, 03/14/22 10:29:00 EDT, Capsule, [facility]/pharmacy #[id number], Partial fill upon patient request if the prescription is for a schedule II opioid drug., 158, cm, 03/14/22 10:04:00... Start Date: 03/14/22 Status: Ordered clonazePAM 0.5 mg oral tablet [...] mg, 1, tablet, By Mouth, Daily, # 30 tablet, Refills 0, Maintenance, 07/16/21 11:41:00 EST, Partial fill upon patient request if the prescription is for a schedule II opioid drug. Start Date: 07/16/21 Status: Ordered Lyrica 75 mg oral capsule 1 capsule = 75 mg, By Mouth, 2 times a day, # 60 capsule, 0 Refills, Maintenance, 10/15/21 15:09:00EDT, Capsule, [facility]/pharmacy #[id number], Partial fill upon patient request if the prescription is for a schedule II opioid drug., 158, cm, 10/15/21 14:32:00 E... Start Date: 10/15/21 Stop Date: 10/15/22 Status: Ordered methotrexate 2.5 mg oral tablet [...] 05/28/22 13:02:00 EDT, Route to Pharmacy Electronically, [facility]/pharmacy #1972, Partial fill upon patient request if the prescription is for a schedule II opioid drug... Start Date: 05/28/22 Status: Ordered metoprolol succinate 50 mg oral capsule, extended release 1 capsule = 50 mg, By Mouth, Daily, # 90 capsule, 1 Refills, Maintenance, 05/27/22 13:49:00 EDT, ERCapsule, [facility]/pharmacy #1972, Partial fill upon patient request if the prescription is for a schedule II opioid drug., 158, cm, 05/16/22 11:00:00 EDT, H... Start Date: 05/27/22 Status: Ordered Misc Rx Refills 0, Maintenance, Hair, Skin , Nails 1 tablet daily, 03/18/21 13:55:00 EDT, Supply Start Date: 03/18/21 Status: Ordered OXcarbazepine 600 mg oral tablet 1 tablet = 600 mg, By Mouth, Daily before breakfast, 0 Refills, Maintenance, 07/16/21 12:12:00 EST,Partial fill upon patient request if the prescription is for a schedule II opioid drug. Start Date: 07/16/21 Status: Ordered OXcarbazepine 600 mg oral tablet [...] Dry Weight Start Date: 11/05/22 Status: Ordered Protonix 40 mg oral delayed release tablet 1 tablet = 40 mg, By Mouth, Daily, # 30 tablet, 5 Refills, Hard Stop 11/05/22 10:40:00 EDT, 11/12/21 10:40:00 EDT, [facility] Tablet, 158, cm, 11/12/21 10:06:00 EDT, Height, 103.5, kg, 05/28/21 16:21:00 EDT,Dry Weight Start Date: 11/12/21 Stop Date: 11/05/22 Status: Ordered Symbicort 160mcg/4.5mcg Inhaler [...] disc Confirmed Active Drug abuse Confirmed Active Esophagitis Confirmed Active Gastritis Confirmed Active GERD (gastroesophageal reflux disease) Confirmed Active Hypoxia Confirmed Active Sacroiliitis Confirmed Active Lumbar radiculitis with facet arthropathy Confirmed Active Lupus erythematosus Confirmed Active Mild intermittent asthma Confirmed Active Pulmonary nodules Confirmed Active Nicotine dependence Confirmed Active PND (paroxysmal nocturnal dyspnea) Confirmed Active Polypharmacy Confirmed Active Major depression, recurrent 1 Confirmed Active Rheumatoid arthritis Confirmed Active Severe obesity Confirmed Active Spondylolisthesis Confirmed Active SLE- followed by Dr Lama at [facility] Confirmed Active Tobacco abuse Confirmed Active 1Follows with N Social History Social History Type Response Smoking Status Current every day amilcar noyola entered on: 07/26/15 Sex Patient Care team information Personnel Name: Arnold LIM, Jeanette Cm Address: Address: [facility] [address]
--- OUTSIDE RECORDS SUMMARY | 2023-04-08 15:51 | XMS_ITS | Continuity of Care Document ---
Author Name Unknown Organization [facility] Address [address] [place] [address]- Care Team Providers Care Set Up Mechanic Stamping Machines Name Role Phone Markie Watts Primary Care Physician [phone] Encounter [facility] Date(s): 01/13/21 - 02/12/21 [facility] [address] [place], [place] [address] Attending Physician: Rula Dykes Admitting Physician: AdmtrRula Referring Physician: Admtr, ArMichelle Allergies, Adverse Reactions, Alerts No Known Medication [...] Active Depression- therapist and ps y[facility] at [facility](Confirmed) Active Low back pain(Confirmed) Active Obesity(Confirmed) 1 Active PAOLA (obstructive sleep apnea)(Confirmed) Active Plantar fasciitis, left(Confirmed) Active Restless leg syndrome(Confirmed) Active Smoker(Confirmed) Active SLE- followed by Dr Lama at [facility](Confirmed) Active 1Initail Wt. 07/12/15 228 lbs. Social History Social History Type Response Smoking Status Current every day amilcar noyola entered on: 07/26/15 Sex
--- OUTSIDE RECORDS SUMMARY | 2023-04-08 15:51 | XMS_ITS | Continuity of Care Document ---
Author Name Unknown Organization [facility] Address [address] [place] [address]- Care Team Providers Care Manager Of Application Development Name Role Phone Jeanette Barrett MD Primary Care Physician [phone] [place] [facility] [place]23 - 01/31/23 [facility] [address], [place] [address] Attending Physician: AdmRula pritchard Admitting Physician: AdmtrRula [...] Refills, Maintenance, 07/04/22 9:33:00 EST, [facility], 158, cm, 06/16/22 10:03:00 EST, Height, 103.5, [...] 0 Refills, Maintenance, 01/01/23 14:33:00 EDT, Gel, [facility]/pharmacy #[id number], Partial fill upon patient request if [...] 10/28/22 13:55:00 EDT, Route to Pharmacy Electronically, [facility]/pharmacy #[id number], Partial fill upon patientrequest if the [...] tablet, 0 Refills, Maintenance, 11/20/22 12:05:00 EDT, [id number], 158, cm, 11/06/22 16:09:00 EDT, Height, 99.5, [...] followed by Dr Lama at [facility] Confirmed Active Tobacco abuse Confirmed Active 1normal EMG 06/2022 2Follows with [facility] Social History Social History Type Response Smoking Status Current every day sm jazmín entered on: 07/26/15 Sex Patient Care team information Care Team Personnel Name: Leticia Arita RN Position: [facility] RN Member Role: Primary Care Nurse Name: Steph Nichols Position: [facility] RN Member Role: Primary Care Nurse Name: Jeanette Barrett MD Position: [facility] Physician - Primary Care Member Role: PCP Address: Address: [address] [place] [id number]- Name: Melissa Castro RN Position: [facility] OB RN Member Role: Primary Care Nurse Name: Ely Naqvi RN Position: [facility] RN Member Role: Primary Care Nurse Name: Ana Munguia RN Position: [facility] RN Member Role: Primary Care Nurse Name: Lissa Saunders RN Position: [facility] OB RN Member Role: Primary Care Nurse Name: Alka Clifton Position: [facility] Outreach Member Role: Lifetime Consulting Physician Name: Zofia Omalley RN Position: [facility] Hospital Personal Consultant Member Role: Primary Care Nurse Care Team Related Persons Name: FADI BLAND Address: home [address] [place] [address]
--- OUTSIDE RECORDS SUMMARY | 2023-04-08 15:51 | XMS_ITS | Continuity of Care Document ---
Author Name Unknown Organization [facility] Malcolm bustamante's [facility] Address [address], [address] [place] [address]- Care Team Providers Care Resident Doctor Name Role Phone rAnold LIM, Jeanette Cm Primary Care Physician [place] [facility] [place] 09/02/22 - 10/17/22 [facility] Malcolmgustavo MuhammadGold Lassos [facility] [address] [place], [place] [address] Attending Physician: Not on Staff, Attending MD Referring Physician: Kourtney Lucio Allergies, Adverse Reactions, [...] Refills, Maintenance, 07/04/22 9:33:00 EST, [id number], 158, cm, 06/16/22 10:03:00 EST, Height, 103.5, [...] 07/04/22 9:17:00 EST, Route to Pharmacy Electronically, [facility]/pharmacy #[id number], Partial fill upon [...] 05/28/22 13:02:00 EDT, Route to Pharmacy Electronically, [facility]/pharmacy #[id number], Partial fill upon patient request if the prescription is for a schedule II opioid drug... Start Date: 05/28/22 Status: Ordered Misc Rx Refills 0, Maintenance, [...] followed by Dr Lama at [facility] Confirmed Active Tobacco abuse Confirmed Active 1normal EMG 06/2022 2Follows with N Social History Social History Type Response Smoking Status Current every day sm jazmín entered on: 07/26/15 Sex Patient Care team information Care Team Personnel Name: Leticia Arita RN Position: S RN Member Role: Primary Care Nurse Name: Steph Nichols Position: S RN Member Role: Primary Care Nurse Name: Jeanette Barrett MD Position: [facility] Primary Care Physician Member Role: PCP Address: Address: [address] [place] [address] [facility] [place] [address] Name: Melissa Castro RN Position: [facility] OB RN Member Role: Primary Care Nurse Name: Ely Naqvi RN Position: [facility] RN Member Role: Primary Care Nurse Name: Ana Munguia RN Position: [facility] RN Member Role: Primary Care Nurse Name: Lissa Saunders RN Position: [facility] OB RN Member Role: Primary Care Nurse Name: Alka Clifton Position: [facility] Outreach Member Role: Lifetime Consulting Physician Name: Zofia Omalley RN Position: [facility] Hospital Frame Carver Spindle Member Role: Primary Care Nurse Care Team Related Persons Name: FADI BLAND Address: [place] [address]
--- OUTSIDE RECORDS SUMMARY | 2023-04-08 15:51 | XMS_ITS | Continuity of Care Document ---
Author Name Unknown Organization [facility] Address [address] [place] [address]- Care Team Providers Care Cyber Security Specialist Name Role Phone Maximus Rivas MD Primary Care Physician [phone] [place] [facility] [place](s): 02/20/21 - 04/19/21 [facility] [address] [place], [place] [address] Attending Physician: Nemo Gordon MD Admitting Physician: Nemo Gordon MD Referring Physician: Regan Jhaveri MD Allergies, Adverse Reactions, Alerts No Known [...] 04/01/21 17:52:00 EDT, Route to Pharmacy Electronically, [facility]/pharmacy #[id number], Partial fill upon patient request ifthe [...] 0 Refills, Maintenance, 04/01/21 17:53:00 EDT, Tablet, [facility]/pharmacy #[id number], Partial fill [...] 04/01/21 17:52:00 EDT, Route to Pharmacy Electronically, [facility]/pharmacy #[id number], Partialfill upon patient request if the [...] Refills, Maintenance, 04/01/21 17:53:00 EDT, REC Powder, [facility]/pharmacy #[id number], Partial fill upon patient request if the prescription is for a schedule II opioid drug., 17 Gm By Mouth... Start Date: 04/01/21 Status: [place] [facility] [place]ills 0, Maintenance, Hair, Skin , [...] 04/01/21 17:52:00 EDT, Route to Pharmacy Electronically, [facility]/pharmacy #[id number], Partial fill [...] 0 Refills, Maintenance, 04/01/21 17:53:00 EDT, Tablet, [facility]/pharmacy #[id number], Partial fill [...] Active Constipation(Confirmed) Active Depression- therapist and ps [facility](Confirmed) Active Fibromyalgia(Confirmed) Active Low back pain(Confirmed) Active Mass of ovary(Confirmed) Active Neuropathy(Confirmed) Active Obesity(Confirmed) 1 Active PAOLA (obstructive sleep apnea)(Confirmed) Active Plantar fasciitis, left(Confirmed) Active Restless leg syndrome(Confirmed) Active Rheumatoid arteritis(Confirmed) Active Smoker(Confirmed) Active Follow-up examination after gynecological surgery(Confirmed) Active SLE- [facility] by [facility](Confirmed) Active Vaginal dryness(Confirmed) Active 1Initail Wt. 07/12/15 228 lbs. Social History Social History Type Response Smoking Status Current every day amilcar noyola entered on: 07/26/15 Sex
--- OUTSIDE RECORDS SUMMARY | 2023-04-08 15:51 | XMS_ITS | Continuity of Care Document ---
Author Name Unknown Organization [facility] Malcolm tavaress [facility] Address [address], [address] [place] [address]- Care Team Providers Care Concrete Stone Fabricating Supervisor Name Role Phone Arnold LIM, Jeanette Cm Primary Care Physician [phone] [place] [facility] [place] 10/16/22 - 10/23/22 [facility]col[facility]ust[facility] MuhammadPerkStreet [employer]anc[employer] [facility] [address] [place], [place] [address] Attending Physician: Tung Pettit MD Referring Physician: [...] Refills, Maintenance, 07/04/22 9:33:00 EST, [facility], 158, cm, 06/16/22 10:03:00 EST, Height, 103.5, [...] 07/04/22 9:17:00 EST, Route to Pharmacy Electronically, [facility]/pharmacy #[id number], Partial fill upon patient request ifthe [...] 05/28/22 13:02:00 EDT, Route to Pharmacy Electronically, [facility]/pharmacy #[id number], Partial fill upon patient request if [...] Active SLE- followed by Dr Lama at [facility] Confirmed Active Tobacco abuse Confirmed Active 1normal EMG 06/2022 2Follows with [facility] Vital Signs Most recent to oldest [Reference Range]: 1 Height 158 cm (10/16/22 2:46 PM) Weight 97.9 kg (10/16/22 2:46 PM) Pulse Rate [55-90 bpm] 64 bpm (10/16/22 2:46 PM) Body Mass Index [18.5-24.99 kg/m2] 39.22 kg/m2 *>HHI* (10/16/22 2:46 PM) Blood Pressure [90-138/55-84 mm Hg] 170/ 76mm Hg *H* (3/16/23 2:46 PM) Blood pressure sites Arm, right (10/16/22 2:46 PM) Dry Weight 97.9 kg (10/16/22 2:46 PM) Weight Obtained Via Standing scale (10/16/22 2:46 PM) Dry Weight Obtained Via Standing scale (10/16/22 2:46 PM) Social History Social History Type Response Smoking Status Current every day sm jazmín entered on: 07/26/15 Sex Patient Care team information Care Team Personnel Name: Leticia Arita RN Position: [facility] RN Member Role: Primary Care Nurse Name: Steph Nichols Position: [facility] RN Member Role: Primary Care Nurse Name: Jeanette Barrett MD Position: [facility] Primary Care Physician Member Role: PCP Address: Address: [place] [address]- Name: Melissa Castro RN Position: [facility] OB RN Member Role: Primary Care Nurse Name: Ely Naqvi RN Position: [facility] RN Member Role: Primary Care Nurse Name: Ana Munguia RN Position: [facility] RN Member Role: Primary Care Nurse Name: Lissa Saunders RN Position: [facility] OB RN Member Role: Primary Care Nurse Name: Alka Clifton Position: [facility] Outreach Member Role: Lifetime Consulting Physician Name: Zofia Omalley RN Position: [facility] Administrator Member Role: Primary Care Nurse Care Team Related Persons Name: FADI BLAND Address: [address] [address]
--- OUTSIDE RECORDS SUMMARY | 2023-04-08 15:51 | XMS_ITS | Continuity of Care Document ---
Author Name Unknown Organization [facility] Malcolm bustamante's [facility] Address [address], [address] [place] [address]- Care Team Providers Care Production Artist Name Role Phone Jeanette Barrett MD Primary Care Physician Encounter [facility] [place] Date(s): 09/30/22 - 10/07/22 [facility] Malcolmgustavo MuhammadEashmarts [facility] [address], [place] [address] Attending Physician: Crescencio LIM [OB], Letty Davidson Referring Physician: Jeanette Barrett MD Allergies, Adverse [...] Refills, Maintenance, 07/04/22 9:33:00 EST, [facility], 158, cm, 06/16/22 10:03:00 EST, Height, 103.5, [...] 0 Refills, Soft Stop, 09/02/22 17:49:00 EST, [facility] Partial fill upon patient request if the prescription is for a schedule II opioid drug., 158, cm, 09/02/22 13:41:00 EST, Height, 9... Start Date: 09/02/22 Status: Ordered Liletta 52 mg intrauterine device 1 each = 52 mg, Vaginally, Once, # 1 each, 0 Refills, Soft Stop, 09/30/22 10:55:00 EST[facility] Partial fill upon patient request if the [...] capsule, 1 Refills, Maintenance, 05/27/22 13:49:00 EDT, [id number], Partial fill upon patient request if the prescription is for a schedule II opioid drug., 158, cm, 05/16/22 11:00:00 EDT, H... Start Date: 05/27/22 Status: Ordered [facility] Refills 0, Maintenance, Hair, Skin , [...] Active SLE- followed by Dr Lama at [facility] Confirmed Active Tobacco abuse Confirmed Active 1normal EMG 06/2022 2Follows with N Vital Signs Most recent to oldest [Reference Range]: 1 Height 158 cm (09/30/22 11:09 AM) Weight 99.5 kg (09/30/22 11:09 AM) Pulse Rate [55-90 bpm] 82 bpm (09/30/22 11:09 AM) Body Mass Index [18.5-24.99 kg/m2] 39.86 kg/m2 *>HHI* (09/30/22 11:09 AM) Blood Pressure [90-138/55-84 mm Hg] 161/ 88mm Hg *H* (09/30/22 11:09 AM) Blood pressure sites Arm, left (09/30/22 11:09 AM) Dry Weight 99.5 kg (09/30/22 11:09 AM) Weight Obtained Via Standing scale (09/30/22 11:09 AM) Dry Weight Obtained Via Standing scale (09/30/22 11:09 AM) Social History Social History Type Response Smoking Status Current every day amilcar jazmín entered on: 07/26/15 Sex Note * Shakila Garcia: PERFORM, SIGN, VERIFY Event Display: Patient Education/Instruction Authored Date: [id number] [facility] *[facility] Clinical Summary Name SHAHRAM HINKLE Age 47 Years 1975 PCP Arnold LIM, Jeanette Cm PCP Visit Date 09/30/2022 10:08:00 Additional Instructions: Scheduled Appointments?? Future Appointments ?*[facility] ?[address]??[place],??[place],??[address] ?Phone:??--?Fax:??-- ?Appt. Date:??11/06/2022?4:20 PM ?Scheduled Provider:??Wilver LIM , Tung Davidson ?*[place] ?[address]??[place],??[address] ?Phone:??--?Fax:??-- ?Appt. Date:??12/16/2022?10:20 AM ?Scheduled Provider:??Arnold LIM, Jeanette Cm Follow-Up Instructions ?? Diagnosis Encounter for insertion of intrauterine contraceptive device Medications: Please continue your medications until treatment is completed or stopped by your provider. Discuss any questions related to medications with your provider. Medications to Continue Taking That Have Changed [facility], [address] [place] [id number], [phone] - Levonorgestrel (Liletta 52 mg intrauterine device) 1 Each Vaginally once. Refills: 0. Next Dose: These medications were not printed or sent to your pharmacy - Levonorgestrel (Liletta 52 mg intrauterine device) 1 Each Intrauterine once. Refills: 0. Next Dose: Medications to Continue with No Changes These medications were not printed or sent to your pharmacy Albuterol (ProAir HFA 90 mcg/inh inhalation aerosol with adapter) 2 puff(s) Inhalation every 4 hours as needed Wheezing/Shortness of Breath. Refills: 0. Next Dose: Albuterol/Ipratropium (Combivent Respimat 20 mcg-100 mcg/inh inhalation aerosol) 1 puff(s) Inhalation 4 times a day. Next Dose: Budesonide-Formoterol (Symbicort 160mcg/4.5mcg Inhaler) 2 puff(s) Inhalation twice a day. Next Dose: BuPROpion (buPROPion 300 mg/24 hours (XL) oral tablet, extended release) 1 tab(s) Oral Daily. . take in am. future refills from pcp. Refills: 2. Next Dose: Celecoxib (celecoxib 200 mg oral capsule) 1 capsule Oral twice a day. Refills: 1. Next Dose: Clonazepam (clonazePAM 0.5 mg oral tablet) 1 tab(s) Oral twice a day. Next Dose: Duloxetine (Cymbalta 30 mg oral enteric coated capsule) 1 capsule Oral Daily in the morning. Next Dose: Fexofenadine (fexofenadine 180 mg oral tablet) 1 tab(s) Oral Daily. Next Dose: Folic Acid 1 tab(s) Daily. Next Dose: Hydroxychloroquine (hydroxychloroquine 200 mg oral tablet) 1 tab(s) Oral twice a day for 30 Days. Refills: 3. Next Dose: Lisinopril (lisinopril 5 mg oral tablet) 1 tab(s) Oral Daily. Refills: 2. Next Dose: Methotrexate (methotrexate 2.5 mg oral tablet) 4 tab(s) Oral Daily. Next Dose: Metoprolol (metoprolol 50 mg oral tablet, extended release) 1 tab(s) Oral Daily. Refills: 1. Next Dose: Metoprolol (metoprolol succinate 50 mg oral capsule, extended release) 1 capsule Oral Daily. Refills: 1. Next Dose: Miscellaneous Rx (Misc Rx) Hair, Skin , Nails 1 tablet daily. Next Dose: Oxcarbazepine (OXcarbazepine 600 mg oral tablet) 1.5 Daily at Bedtime. Next Dose: Oxybutynin 10 Milligram Oral Daily in the morning. Next Dose: Pantoprazole (pantoprazole 40 mg oral delayed release tablet) 1 tab(s) Oral Daily. Refills: 2. Next Dose: Zolpidem 5 Milligram Oral Daily at Bedtime. Next Dose: Allergy Info:?? No Known Medication Allergies Medications Given This Visit Future Orders ?No future orders Vital Signs Height Weight BMI Blood Pressure / Temperature Pulse Rate Respiratory Rate 02 Sat Mode of Delivery / You can now view a summary of your hospital visit from the comfort of your home through a free online portal called [employer]. [employer] is a website that allows you to securely view your medical information including discharge summary, medications and follow-up visits. ??You can alsosend a secure electronic message to your doctor???s office to request appointments, renew medications or just ask a question. You can enroll at [email or web address] or register during your next office visit. Disclaimer:?? The information provided is of a general nature and is intended to be used in conjunction with the recommendations and advice of your health care practitioner. ??Every effort has been made to ensure that the information provided is accurate and complete at the time it is provided to you however, as your needs change, or, as new ??information becomes available, different or additional instructions may be required. If you have questions, please consult with your primary care provider or pharmacist, as appropriate. ??This information is not intended to serve as substitution for assessment and evaluation by a qualified health care provider. If you do not have a primary care provider, you may find a [facility] provider by calling [facility] [employer] at [phone]. For information about the plan of care including goals and instructions for your diagnosis, please see the patient education orders section of this document. Patient Education Materials?? The content of this educational material or handout may have been modified, supplemented, or adapted from its original content and format to support your individualized medical care. Please follow instructions discussed with your provider during this visit as well as any education documents you were given today. Patient Care team information Care Team Personnel Name: Leticia Arita RN Position: S RN Member Role: Primary Care Nurse Name: Steph Nichols Position: S RN Member Role: Primary Care Nurse Name: Jeanette Barrett MD Position: [facility] Primary Care Physician Member Role: PCP Address: Address: [facility] [place] [address]- [place] Name: Melissa Castro RN Position: [facility] OB RN Member Role: Primary Care Nurse Name: Ely Naqvi RN Position: [facility] RN Member Role: Primary Care Nurse Name: Ana Munguia RN Position: [facility] RN Member Role: Primary Care Nurse Name: Lissa Saunders RN Position: [facility] OB RN Member Role: Primary Care Nurse Name: Alka Clifton Position: [facility] Outreach Member Role: Lifetime Consulting Physician Name: Zofia Omalley RN Position: [facility] Hospital Aircraft Sheet Metal Mechanic Member Role: Primary Care Nurse Care Team Related Persons Name: FADI BLAND Address: [address] [address]
--- OUTSIDE RECORDS SUMMARY | 2023-04-08 15:51 | XMS_ITS | Continuity of Care Document ---
Author Name Unknown Organization [facility] Address [address] [place] [address]- Care Team Providers Care Manager Etl Name Role Phone Jeanette Barrett MD Primary Care Physician [place] [facility] [place] 10/28/22 - 11/27/[address] [address] Attending Physician: Admtr, Ar8 Admitting Physician: Admtr, [...] Refills, Maintenance, 07/04/22 9:33:00 EST, [facility], 158, cm, 06/16/22 10:03:00 EST, Height, 103.5, [...] 10/28/22 13:55:00 EDT, Route to Pharmacy Electronically, [facility]/pharmacy #[id number], Partial fill upon patientrequest if the prescription is for a schedule II op... Start Date: 10/28/22 Status: Ordered lisinopril 5 mg oral tablet 5 mg, 1, tablet, By Mouth, Daily, # 90 tablet, Refills 2, Tot. Refills 2, Maintenance, 07/04/22 9:17:00 EST, Route to Pharmacy Electronically, [facility]/pharmacy #[id number], Partial fill upon patient request ifthe [...] Refills, Maintenance, 11/20/22 12:05:00 EDT, [facility], 158, cm, 11/06/22 16:09:00 EDT, Height, 99.5, kg, 11/06/22 16:09:00 EDT, Dry Weight Start Date: 11/20/22 Status: Ordered [facility] [place] Refills 0, Maintenance, Hair, Skin , [...] SLE- followed by Dr Lama at [facility] Confirmed Active Tobacco abuse Confirmed Active 1normal EMG 06/2022 2Follows with [facility] Social History Social History Type Response Smoking Status Current every day amilcar noyola entered on: 07/26/15 Sex Patient Care team information Care Team Personnel Name: Leticia Arita RN Position: RN Member Role: Primary Care Nurse Name: Steph Nichols Position: [facility] RN Member Role: Primary Care Nurse Name: Jeanette Barrett MD Position: [facility] Primary Care Physician Member Role: PCP Address: Address: [facility] [place] [address]- Name: Melissa Catsro RN Position: [facility] OB RN Member Role: Primary Care Nurse Name: Ely Naqvi RN Position: [facility] RN Member Role: Primary Care Nurse Name: Ana Munguia RN Position: [facility] RN Member Role: Primary Care Nurse Name: Lissa Saunders RN Position: [facility] OB RN Member Role: Primary Care Nurse Name: Alka Clifotn Position: [facility] Outreach Member Role: Lifetime Consulting Physician Name: Zofia Omalley RN Position: [facility] Fireboat Operator Member Role: Primary Care Nurse Care Team Related Persons Name: FADI BLAND Address: [address] [address]
--- OUTSIDE RECORDS SUMMARY | 2023-04-08 15:51 | XMS_ITS | Continuity of Care Document ---
Author Name Unknown Organization [facility] PRODUCE DEPARTMENT MANAGER Oncolog y Address [address] [place] [address]- Care Team Providers Care Leasing Sales Consultant Name Role Phone Maximus Rivas MD Primary Care Physician Encounter [facility] Date(s): 05/16/21 - 06/15/21 [facility] PRODUCE DEPARTMENT MANAGER Oncology [address] [place], [place] [address] Allergies, Adverse Reactions, Alerts No [...] 04/01/21 17:52:00 EDT, Route to Pharmacy Electronically, [facility]/pharmacy #[id number], Partial fill upon patient request ifthe prescription [...] 0 Refills, Maintenance, 04/01/21 17:53:00 EDT, Tablet, [facility]/pharmacy #[id number], Partial fill upon patient request if the prescription is for a schedule II opioid drug., 157.4,... Start Date: 04/01/21 Status: Ordered fluconazole 150 mg oral tablet 1 tablet = 150 mg, By Mouth, Once, repeat dose if still having symptoms in 72 hours, # 2 tablet, 0 Refills, Soft Stop, 05/15/21 11:40:00 EDT, Tablet, [facility]/pharmacy #[id number], Partial fill upon patient request if [...] 04/01/21 17:52:00 EDT, Route to Pharmacy Electronically, [facility]/pharmacy #[id number], Partialfill upon patient request if the [...] Refills, Maintenance, 04/01/21 17:53:00 EDT, REC Powder, [facility]/pharmacy #[id number], Partial fill upon patient request if the prescription is for a schedule II opioid drug., 17 Gm By Mouth... Start Date: 04/01/21 Status: Ordered [facility] [...] 04/01/21 17:52:00 EDT, Route to Pharmacy Electronically, [facility]/pharmacy #[id number], Partial fill upon patient request if [...] 0 Refills, Maintenance, 04/01/21 17:53:00 EDT, Tablet, [facility]/pharmacy #[id number], Partial fill upon patient request if [...] Active Constipation(Confirmed) Active Depression- therapist and ps [facility](Confirmed) Active Fibromyalgia(Confirmed) Active Low back pain(Confirmed) Active Mass of ovary(Confirmed) Active Neuropathy(Confirmed) Active Obesity(Confirmed) 1 Active PAOLA (obstructive sleep apnea)(Confirmed) Active Pelvic pain(Confirmed) Active Plantar fasciitis, left(Confirmed) Active Restless leg syndrome(Confirmed) Active Rheumatoid arteritis(Confirmed) Active Smoker(Confirmed) Active Follow-up examination after gynecological surgery(Confirmed) Active SLE- followed by Dr Lama at [facility](Confirmed) Active Vaginal dryness(Confirmed) Active 1Initail Wt. 07/12/15 228 lbs. Social History Social History Type Response Smoking Status Current every day amilcar noyola entered on: 07/26/15 Sex
--- OUTSIDE RECORDS SUMMARY | 2023-04-08 15:51 | XMS_ITS | Continuity of Care Document ---
Author Name Unknown Organization [facility] VIDEO PRODUCER Oncolog y Address [address] [place] [address]- Care Team Providers Care Supervisor Asbestos Textile Name Role Phone Maximus Rivas MD Primary Care Physician [phone] Encounter [facility] Date(s): 02/20/21 - 04/10/21 [facility] VIDEO PRODUCER Oncology [address] [place], [place] [address] Attending Physician: Nemo Gordon MD [...] 04/01/21 17:52:00 EDT, Route to Pharmacy Electronically, [facility]/pharmacy #[id number], Partial fill upon patient request [...] 0 Refills, Maintenance, 04/01/21 17:53:00 EDT, Tablet, [facility]/pharmacy #[id number], Partial fill upon patient request if [...] 04/01/21 17:52:00 EDT, Route to Pharmacy Electronically, [facility]/pharmacy #[id number], Partialfill upon patient request if [...] Refills, Maintenance, 04/01/21 17:53:00 EDT, REC Powder, [facility]/pharmacy #[id number], Partial fill upon patient request if the prescription is for a schedule II opioid drug., 17 Gm By Mouth... Start Date: 04/01/21 Status: Ordered [facility] Rx Refills 0, Maintenance, Hair, Skin , [...] 04/01/21 17:52:00 EDT, Route to Pharmacy Electronically, [facility]/pharmacy #[id number], Partial fill upon patient request if [...] 0 Refills, Maintenance, 04/01/21 17:53:00 EDT, Tablet, [facility]/pharmacy #[id number], Partial fill upon patient request if [...] Active Constipation(Confirmed) Active Depression- therapist and ps [facility](Confirmed) Active Fibromyalgia(Confirmed) Active Low back pain(Confirmed) Active Mass of ovary(Confirmed) Active Neuropathy(Confirmed) Active Obesity(Confirmed) 1 Active PAOLA (obstructive sleep apnea)(Confirmed) Active Plantar fasciitis, left(Confirmed) Active Restless leg syndrome(Confirmed) Active Rheumatoid arteritis(Confirmed) Active Smoker(Confirmed) Active SLE- followed by Dr Lama at [facility](Confirmed) Active Vaginal dryness(Confirmed) Active 1Initail Wt. 07/12/15 228 lbs. Social History Social History Type Response Smoking Status Current every day amilcar noyola entered on: 07/26/15 Sex
--- OUTSIDE RECORDS SUMMARY | 2023-04-08 15:51 | XMS_ITS | Continuity of Care Document ---
Author Name Unknown Organization [facility] Address [address] [place] [address]- Care Team Providers Care Periodicals Library Assistant Name Role Phone Jeanette Barrett MD Primary Care Physician [phone] Encounter [facility] [place] [facility] Date(s): 02/28/22 - 03/07/22 [facility] [address] [place], [place] [address] Encounter Diagnosis Left flank pain(Discharge Diagnosis) - 02/28/22 Attending Physician: Haroon Cross DO Referring Physician: Jeanette Barrett MD Allergies, Adverse [...] 04/01/21 17:52:00 EDT, Route to Pharmacy Electronically, [facility]/pharmacy #[id number], Partial fill upon patient request [...] 04/01/21 17:52:00 EDT, Route to Pharmacy Electronically, [facility]/pharmacy #[id number], Partialfill upon patient request if [...] Print Requisition Start Date: 05/06/18 Status: Ordered Zolpidem = 5 mg, By [...] Active SLE- followed by Dr Lama at [facility](Confirmed) Active Tobacco abuse(Confirmed) Active 1Follows with [facility] Diagnosis Diagnosis Type Effective Dates Health Status Cl inical Service Informant Left flank pain Discharge Diagnosis 02/28/22 Vital Signs Most recent to oldest [Reference Range]: 1 Height 158 cm (02/28/22 2:43 PM) Oxygen Saturation [94-100 %] 100 % (02/28/22 2:43 PM) Pulse Rate [55-90 bpm] 67 bpm (02/28/22 2:43 PM) Blood Pressure [90-138/55-84 mm Hg] 117/ 49mm Hg (02/28/22 2:43 PM) Temperature [96.8-100.4 DegF] 98.4 DegF (02/28/22 2:43 PM) Mode of Delivery (Oxygen) Room air (02/28/22 2:43 PM) Blood pressure sites Arm, right (02/28/22 2:43 PM) Temperature Route Temporal (02/28/22 2:43 PM) Social History Social History Type Response Smoking Status Current every day amilcar noyola entered on: 07/26/15 Sex
--- OUTSIDE RECORDS SUMMARY | 2023-04-08 15:51 | XMS_ITS | Continuity of Care Document ---
Author Name Unknown Organization [facility] BUILD AUTOMATION ENGINEER Oncolog y Address [address] [place] [address]- Care Team Providers Care Supervisor Records Change Name Role Phone Maximus Rivas MD Primary Care Physician Encounter [facility] Date(s): 04/02/21 - 05/02/21 [facility] BUILD AUTOMATION ENGINEER Oncology [address] [place], [place] [address] Allergies, Adverse Reactions, Alerts No Known [...] 04/01/21 17:52:00 EDT, Route to Pharmacy Electronically, [facility]/pharmacy #[id number], Partial fill upon patient request ifthe prescription [...] 0 Refills, Maintenance, 04/01/21 17:53:00 EDT, Tablet, [facility]/pharmacy #[id number], Partial fill upon patient [...] 04/01/21 17:52:00 EDT, Route to Pharmacy Electronically, [facility]/pharmacy #[id number], Partialfill upon patient request [...] Refills, Maintenance, 04/01/21 17:53:00 EDT, REC Powder, [facility]/pharmacy #[id number], Partial fill upon patient [...] 04/01/21 17:52:00 EDT, Route to Pharmacy Electronically, [facility]/pharmacy #[id number], Partial fill upon patient [...] 0 Refills, Maintenance, 04/01/21 17:53:00 EDT, Tablet, [facility]/pharmacy #[id number], Partial fill upon patient request if the [...] Active Constipation(Confirmed) Active Depression- therapist and ps [facility](Confirmed) Active Fibromyalgia(Confirmed) Active Low back pain(Confirmed) Active Mass of ovary(Confirmed) Active Neuropathy(Confirmed) Active Obesity(Confirmed) 1 Active PAOLA (obstructive sleep apnea)(Confirmed) Active Plantar fasciitis, left(Confirmed) Active Restless leg syndrome(Confirmed) Active Rheumatoid arteritis(Confirmed) Active Smoker(Confirmed) Active Follow-up examination after gynecological surgery(Confirmed) Active SLE- followed by Dr Lama at [facility](Confirmed) Active Vaginal dryness(Confirmed) Active 1Initail Wt. 07/12/15 228 lbs. Social History Social History Type Response Smoking Status Current every day amilcar noyola entered on: 07/26/15 Sex
--- OUTSIDE RECORDS SUMMARY | 2023-04-08 15:51 | XMS_ITS | Continuity of Care Document ---
Author Name Unknown Organization [facility] Address [address] [place] [address]- Care Team Providers Care Microbiology Teacher Name Role Phone Jeanette Barrett MD Primary Care Physician [phone] Encounter [facility] Date(s): 02/28/22 - 03/30/22 [facility] [address] [place], [place] [address] Attending Physician: AdmRula pritchard Admitting Physician: Admtr, [id number] Referring Physician: Admtr, [...] Date: 04/19/12 Stop Date: 08/17/12 Status: Ordered Misc Rx Refills 0, Maintenance, [...] Lumbar radiculitis with face t arthropathy(Confirmed) Active Lupus erythematosus(Confirmed) Active Mild intermittent asthma(Confirmed) Active Pulmonary nodules(Confirmed) Active Nicotine dependence(Confirmed) Active PND (paroxysmal nocturnal dyspnea)(Confirmed) Active Polypharmacy(Confirmed) Active Major depression, recurrent( Confirmed) 1 Active Rheumatoid arthritis(Confirmed) Active Severe obesity(Confirmed) Active Spondylolisthesis(Confirmed) Active SLE- followed by Dr Lama at [facility](Confirmed) Active Tobacco abuse(Confirmed) Active 1Follows with [facility] Social History Social History Type Response Smoking Status Current every day amilcar noyola entered on: 07/26/15 Sex Care Team Personnel Name: Arnold LIM, Jeanette Cm Address: [address] [place] [address] Primary Care [place], [place] [address]
--- OUTSIDE RECORDS SUMMARY | 2023-04-08 15:51 | XMS_ITS | Continuity of Care Document ---
Author Name Unknown Organization [facility] Address [address] [place] [address]- Care Team Providers Care Portable Machine Cutter Name Role Phone Jeanette Barrett MD Primary Care Physician [place] [facility] [place] 10/28/22 - 10/28/[address] [address] Discharge Disposition: A-D/C Home Attending Physician: Tung Pettit MD Admitting Physician: Tung Pettit MD Referring Physician: Jeanette Barrett MD Allergies, [...] Refills, Maintenance, 07/04/22 9:33:00 EST, [facility], 158, cm, 06/16/22 10:03:00 EST, Height, 103.5, [...] 13:55:00 EDT, Route to Pharmacy Electronically, [facility]/pharmacy #[id number], Partial fill upon patientrequest if the [...] opioid drug... Start Date: 05/28/22 Status: Ordered [facility] Rx Refills 0, Maintenance, [...] Active SLE- followed by Dr Lama at [facility] Confirmed Active Tobacco abuse Confirmed Active 1normal EMG 06/2022 2Follows with [facility] Social History Social History Type Response Smoking Status Current every day amilcar noyola entered on: 07/26/15 Sex Patient Care team information Care Team Personnel Name: Leticia Arita RN Position: [facility] RN Member Role: Primary Care Nurse Name: Nichols , Steph Position: [facility] RN Member Role: Primary Care Nurse Name: Jeanette Barrett MD Position: [facility] Primary Care Physician Member Role: PCP Address: Address: [facility] [place] [address]- Name: Melissa Castro RN Position: [facility] OB RN Member Role: Primary Care Nurse Name: Ely Naqvi RN Position: [facility] RN Member Role: Primary Care Nurse Name: Ana Munguia RN Position: [facility] RN Member Role: Primary Care Nurse Name: Lissa Saunders RN Position: [facility] OB RN Member Role: Primary Care Nurse Name: Alka Clifton Position: [facility] Outreach Member Role: Lifetime Consulting Physician Name: Zofia Omalley RN Position: [facility] Hospital Data Assistant Member Role: Primary Care Nurse Care Team Related Persons Name: FADI BLAND Address: [address] [address]
--- OUTSIDE RECORDS SUMMARY | 2023-04-08 15:51 | XMS_ITS | Continuity of Care Document ---
Author Name Unknown Organization [facility] LEGAL ANALYST Oncolog y Address [address] [place] [address]- Care Team Providers Care Sharepoint Engineer Name Role Phone Maximus Rivas MD Primary Care Physician Encounter [facility] Date(s): 05/15/21 - 06/14/21 [facility] LEGAL ANALYST Oncology [address] [place], [place] [address] Allergies, Adverse Reactions, Alerts No [...] 04/01/21 17:52:00 EDT, Route to Pharmacy Electronically, [facility]/pharmacy #[id number], Partial fill upon patient request ifthe prescription [...] 0 Refills, Maintenance, 04/01/21 17:53:00 EDT, Tablet, [facility]/pharmacy #[id number], Partial fill upon patient request if the prescription is for a schedule II opioid drug., 157.4,... Start Date: 04/01/21 Status: Ordered fluconazole 150 mg oral tablet 1 tablet = 150 mg, By Mouth, Once, repeat dose if still having symptoms in 72 hours, # 2 tablet, 0 Refills, Soft Stop, 05/15/21 11:40:00 EDT, Tablet, [facility]/pharmacy #[id number], Partial fill upon patient request [...] 04/01/21 17:52:00 EDT, Route to Pharmacy Electronically, [facility]/pharmacy #[id number], Partialfill upon patient request if [...] Refills, Maintenance, 04/01/21 17:53:00 EDT, REC Powder, [facility]/pharmacy #[id number], Partial fill upon patient request if the prescription is for a schedule II opioid drug., 17 Gm By Mouth... Start Date: 04/01/21 Status: Ordered [facility] Rx Refills 0, Maintenance, Hair, Skin , [...] 04/01/21 17:52:00 EDT, Route to Pharmacy Electronically, [facility]/pharmacy #[id number], Partial fill upon patient request [...] 0 Refills, Maintenance, 04/01/21 17:53:00 EDT, Tablet, [facility]/pharmacy #[id number], Partial fill upon patient request [...] Active Depression- therapist and ps [facility](Confirmed) Active Fibromyalgia(Confirmed) Active Low back pain(Confirmed) Active Mass of ovary(Confirmed) Active Neuropathy(Confirmed) Active Obesity(Confirmed) 1 Active PAOLA (obstructive sleep apnea)(Confirmed) Active Pelvic pain(Confirmed) Active Plantar fasciitis, left(Confirmed) Active Restless leg syndrome(Confirmed) Active Rheumatoid arteritis(Confirmed) Active Smoker(Confirmed) Active Follow-up examination after gynecological surgery(Confirmed) Active SLE- followed by Dr Lama at [facility](Confirmed) Active Vaginal dryness(Confirmed) Active 1Initail Wt. 07/12/15 228 lbs. Social History Social History Type Response Smoking Status Current every day amilcar noyola entered on: 07/26/15 Sex
--- OUTSIDE RECORDS SUMMARY | 2023-04-08 15:51 | XMS_ITS | Continuity of Care Document ---
Author Name Unknown Organization [facility] COMPUTER COMPOSITOR Oncolog y Address [address] [place] [address]- Care Team Providers Care Sap Data Architect Name Role Phone Rob LIM, Maximus Elias Primary Care Physician Encounter [facility] Date(s): 02/20/21 - 03/22/21 [facility] COMPUTER COMPOSITOR Oncology [address] [place] [address] Allergies, Adverse Reactions, [...] Active Constipation(Confirmed) Active Depression- therapist and ps [facility](Confirmed) Active Fibromyalgia(Confirmed) Active Low back pain(Confirmed) Active Mass of ovary(Confirmed) Active Neuropathy(Confirmed) Active Obesity(Confirmed) 1 Active PAOLA (obstructive sleep apnea)(Confirmed) Active Plantar fasciitis, left(Confirmed) Active Restless leg syndrome(Confirmed) Active Rheumatoid arteritis(Confirmed) Active Smoker(Confirmed) Active SLE- followed by Dr Lama at [facility](Confirmed) Active Vaginal dryness(Confirmed) Active 1Initail Wt. 07/12/15 228 lbs. Social History Social History Type Response Smoking Status Current every day amilcar noyola entered on: 07/26/15 Sex
--- OUTSIDE RECORDS SUMMARY | 2023-04-08 15:52 | XMS_ITS | Patient Health Record ---
Author Name Unknown Organization [facility] Address [facility] [place] [id number] Care Team Providers Care Manual Arts Therapist Name Role Phone Enrique Cannon Unavailable [phone] Gilbert Draper Unavailable Unavailable ENCOUNTERS from 1975 to 2023-04-08 Encounter Location Date Provider Diagnosis [facility] [address] [phone] Apr, Enrique Cannon [facility] [address] [phone] Mar, Enrique Wuacho [facility] [address] [phone] Mar, Enrique Cannon TELE[facility]HEALTH [address] [facility] [place], [place] [phone] Mar, Enrique Wuacho TELE-HEALTH [address] [facility] [place], [place] [phone] Mar, Enrique Cannon [facility] [address] [phone] Mar, Enrique Cannon [facility] [address] [phone] May, Gilbert Draper SOCIAL HISTORY Sex Assigned At : Social History Observation Description Sex Assigned At Unknown REASON FOR REFERRAL from 1975 to 2023-04-08 Referring Provider First Name Gilbert Referring Provider Last Name Bonny Referring Provider [facility] or [facility] practice Referred Provider Homeless,Prevention Referral Priority Routine Referring Provider First Name Gilbert Referring Provider Last Name Bonny Referring Provider [facility] Referred Provider Housing,Search Referral Priority Routine REASON FOR VISIT No Information MENTAL STATUS No Information PLAN OF TREATMENT Referrals Referral Date Details Prevention Homeless Search Housing Insurance Providers Payer Name Payer Address Payer Phone Insured Name Patient Relationship to Insured Coverage Start Date Coverage End Date Subscriber Number Group Number [facility] HealthNet Plan [address] [address] [facility] [id number] Adan Brooks s Self - patient is the insured [id number] Medicaid Standard [address] [facility] [id number] Adan Brooks s Self - patient is the insured [id number]
[2023-04-08] MEDS: Ketorolac Tromethamine 15 MG/ML VIAL IM (16:08)
[2023-04-08] MEDS: Acetaminophen 325 MG TABLET 975 MG PO (16:09)
[2023-04-08 16:13] VITALS: BP 191/92; PULSE 61; RESP 18
--- NOTE | 2023-04-08 16:21 | PC.NURSE ---
pt a&ox3. respirations even and unlabored. pt reports a left knee pain for one week without relief. pt denies any trauma to the leg. pt able to bare weight on leg. pt denies nausea, vomiting, fever and chills.
== END 2023-04-08 16:22 | disposition home or self-care (01) ==
PROVIDERS: Emergency Provider Student in an Organized Health Care Education/Training Program; PCP Internal Medicine
DX: M79.662 Pain in left lower leg (principal); F17.210 Nicotine dependence, cigarettes, uncomplicated; F12.90 Cannabis use, unspecified, uncomplicated
CPT/HCPCS: 73564; 93971; 96372; 99284; J1885

== ENCOUNTER 2023-06-19 10:07 | Outpatient (AMB) | payer OTHER, SELFPAY ==
--- NOTE | 2023-06-19 10:20 | A.OFFVIS_ITS ---
Intake Vital Signs 06/19/23 10:21 Height 5 ft 2 in Weight 204 lb 5.896 oz BMI 37.4 BP 128/70 Blood Pressure Location Lt brachial Position Sitting Pulse 69 Pulse Source Pulse Oximeter Pulse Oximetry (%) 100 Oxygen Delivery Method Room Air Intake Visit Reasons: Dyspnea Medication Manager Required: No Allergies No Known Allergies Allergy (Mild, Verified 06/19/23 10:24) NKA HPI HPI Comments History of Present Illness Details The patient is a 47-year-old woman with a known history of asthma, tobacco dependency and pulmonary nodules. The patient states that she has been having worsening shortness of breath with activity. Pvpv-we-vpakwtlg severity. She does have inhaler, Symbicort. However, has resulted in irritation to her mouth and she does have a hard time tolerating it. She does not use a spacer with it. Currently she is in the 160 dose which is the higher dose. We talked about the importance of using a spacer and also hopefully with minimizing the inhaled steroids will could have her tolerated better. But his symptoms she should be using on a daily basis. I am hopeful that we can have her tolerated better. the patient did have a CT scan of the chest done in [place] with used to be very even last in February 2020 approximately where she had multiple pulmonary nodules largest 1 measuring up to 6 mm in size. In addition to that the patient already has evidence of emphysema. the patient understands that she needs to quit smoking. She does have a lot of family support. The patient is not ready at this time since she is going to significant amount of stress. However, she will come up with a quit date. 10/24/2021 the patient is here for a pulmonary follow-up visit. 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 she has seen multiple pain specialist for without any significant improvement. Currently she is on Lyrica. It does help her some but still having some discomfort. Patient still on a small dose and we can increase it at nighttime to help her with her discomfort at night. and the patient denies any vesicles although she has had chickenpox therefore post herpetic neuralgia cannot be ruled out either. She did undergo pulmonary function studies which I personally reviewed with her. Appears that she does have relatively normal PFTs except for a low normal total lung capacity due to her surgery and a mild diffusion impairment also due to her surgery. after the biopsy she was told that she did not have cancer although was unclear exactly what the biopsy showed. Therefore I will have her sign a release of medical records to get the pathology from [facility]. The patient continues on her Symbicort and also continues on the albuterol. Again we talked about smoking cessation. The patient is very stressed but she does want to quit. as a personally reviewed her CT scan of the chest demonstrating the postoperative changes. She also has pulmonary nodules. She also has the beginnings of emphysema. 04/25/2022 The patient is here for a pulm onary follow-up visit. Overall the patient is doing well from a respiratory status. She continues uses Symbicort. She also has a rescue inhaler which she does not require. Unfortunate she continues to smoke cigarettes. She has been motivated to quitting but she has been very stressed that results in more smoking. We did talk about different nicotine therapies including the Nicotrol inhaler. I will send that to the pharmacy so she can start using it with hopes to switching over to the Nicotrol inhaler and subsequently be able to wean off from that. In addition to that we did review her again her CT scan of the chest demonstrating some postoperative changes. The patient needs to have a repeat CT scan to follow up with those changes. Patient also has underlying non calcified pulmonary nodules that do need follow-up. The patient still having significant back pain. She has been on Lyrica. She is working with her pain specialist. I believe she is going to be referred to a different pain specialist which is helpful. In the meantime I did recommend she talk to her primary care or pain specialist for further adjustments and her Lyrica medication. 10/24/2022 the patient is here for pulmonary follow-up visit. The patient continues to be about the same. She continues use her respiratory medication. She is struggling with smoking. She could not get the Nicotrol inhaler Because it was sent to the wrong pharmacy. I will rx chantix. She will monitor for any mood changes. We did review her last CT scan of the chest on August 2022 demonstrating stable pulmonary nodules. Due to high risk of lung cancer will go ahead and repeat her CT scan in a year's time. In the meantime on examination the patient does have a murmur best heard at the left sternal border. She did undergo an ECHO demonstrating mild hypertrophy and a dilated LA. Trivial valvular regurgitation. 06/19/2023 the patient is here for a pulmonary follow-up visit. Mild in severity. Also complains of a cough. Typically congested in the morning. Unfortunately she continues to smoke cigarettes. She was very motivated to start Chantix and quit but then her father and has been dealing with significant anxiety and stress. The patient does promise her that that she will quit smoking. She will go ahead and try the Chantix. The patient understands that if she does go a Chantix she needs to monitor for any depressive symptoms. She still has a prescription. In the meantime her last CT scan was back in August 2022 with pulmonary nodules. Which have been stable. The patient is high risk for cancer therefore will repeat the CT scan August 2023. will follow-up with her after that to review. Will also optimize respiratory therapy based switching her Spiriva to Stiolto. I am hoping that the combination long- acting bronchodilators will provide with additional improvement in her respiratory symptoms. [facility] Medical History Asthma Asthma-COPD overlap syndrome COPD (chronic obstructive pulmonary disease) Fibromyalgia Hx of esophagitis Hx of gastritis Murmur Pulmonary nodules Sacroiliitis Spondylolisthesis Spondylosis of lumbar region without myelopathy or radiculopathy Tobacco dependence Surgical History History of cholecystectomy (~2014) History of foot surgery (~2006) History of lung surgery (~2014) Social History Alcohol intake: never Patient Tobacco Use Status: Current everyday Tobacco user Tobacco use type: Cigarette Cigarette Packs Per Day: 1 Cigarettes Per Day: 5 Years Smoked: 12 years Substance Use Type: Marijuana Review of Systems Const Denies night sweats ENT Denies change in voice, Denies lip swelling, Denies mouth pain, Reports nasal congestion, Reports nasal discharge and Denies tongue swelling Card Denies chest pain and Reports dyspnea on exertion Resp Reports chest congestion, Reports cough, Reports pain on inspiration, Reports pain with cough and Reports dyspnea on exertion GI Denies abdominal pain Musc Reports back pain, Reports arthralgias and Reports joint swelling Neuro Denies Neuro-related abnormal movements Psych Denies no additional complaints Talha/Lymph Denies easy bleeding and Denies lymphadenopathy Aller/Immun Denies lip swelling and Denies tongue swelling Physical Exam Vital Signs: Last Vital Signs Pulse 69 06/19/23 10:21 BP 128/70 06/19/23 10:21 Pulse Ox 100 06/19/23 10:21 Oxygen Delivery Method Room Air 06/19/23 10:21 BMI result Body Mass Index 37.4 Const General: alert Neck Neck: Yes normal visual inspection, Yes full ROM and Yes no lymphadenopathy Chest Chest palpation & inspection: normal inspection of the chest Resp Auscultation: no rhonchi, no wheezes and diminished lung sounds Cardio Rate: regular rate Rhythm: regular rhythm Heart sounds: S1 normal heart sound present and S2 normal heart sound present GI Palpation (GI): Soft to palpation and nontender Auscultation: normal bowel sounds Skin General skin exam: rashes and/or lesions noted Assessment & Plan Assessment & Plan (1) Pulmonary nodules: Code(s): R91.8 - Other nonspecific abnormal finding of lung field (2) Tobacco dependence: Code(s): F17.200 - Nicotine dependence, unspecified, uncomplicated (3) Murmur: Code(s): R01.1 - Cardiac murmur, unspecified (4) Asthma-COPD overlap syndrome: Code(s): J44.9 - Chronic obstructive pulmonary disease, unspecified Plan stop Spiriva start Stiolto zyrtec tobacco cessation: start chantix short-acting beta agonist as needed CT chest 08/2023 follow-up 3-4 months Medications: New tiotropium-olodaterol 2.5-2.5 mcg/actuation (Stiolto Respimat) 2 puffs inhalation DAILY 30 days 4 grams 11RF Coding Level of Care Code Est Pt Level 4 (19742) Diagnoses Pulmonary nodules R91.8 Tobacco dependence F17.200 Murmur R01.1 Asthma-COPD overlap syndrome J44.9 Time Spent (min) 16
[2023-06-19 10:21] VITALS: BP 128/70; PULSE 69; O2SAT 100; BMI 37.4
== END 2023-06-19 10:52 | disposition home or self-care (01) ==
PROVIDERS: PCP Internal Medicine; Visit Provider Hospitalist
DX: R91.8 Other nonspecific abnormal finding of lung field (principal); F17.200 Nicotine dependence, unspecified, uncomplicated; R01.1 Cardiac murmur, unspecified; J44.9 Chronic obstructive pulmonary disease, unspecified
CPT/HCPCS: 99214

== ENCOUNTER → 2023-06-19 10:07 | Outpatient (BNVA) | payer OTHER, SELFPAY | PROVIDERS: PCP Internal Medicine; Visit Provider Hospitalist | DX: J44.9 Chronic obstructive pulmonary disease, unspecified (principal); R01.1 Cardiac murmur, unspecified; R91.8 Other nonspecific abnormal finding of lung field; F17.210 Nicotine dependence, cigarettes, uncomplicated | CPT/HCPCS: 99212 ==

== ENCOUNTER 2023-08-28 15:01 | Outpatient (REF) | payer OTHER, SELFPAY ==
--- NOTE | ~2023-08-28 | CT_ITS ---
EXAMINATION: CT CHEST WITHOUT CONTRAST CLINICAL INFORMATION: Prior abnormal imaging. COMPARISON: 08/08/2022 and 08/12/2021 TECHNIQUE: Multidetector volumetric CT imaging of the chest was done. Axial MIP volume rendering provided. Sagittal and coronal reformatted images were obtained. This CT examination was performed using dose optimization techniques as appropriate, variously including the following: *Automated exposure control *Adjustment of mA and/or kV according to patient size (this includes techniques or standardized protocols for targeted exams where dose is matched to indication/reason for exam; i.e. extremities or head) *Use of iterative reconstruction technique DLP: 182 mGy-cm FINDINGS: LUNGS: Mild centrilobular emphysema. Postsurgical changes in the left lower lobe. 4 mm subpleural pulmonary nodule right middle lobe on image 225 of series 5. 6 mm nodule along the right minor fissure on image 168 of series 5. Central airways are patent. MEDIASTINUM: Prominent thymic tissue in the anterior mediastinum is stable. No bulky axillary, hilar or mediastinal lymphadenopathy. Great vessels are of normal caliber. Heart size is normal. No pericardial effusion. CORONARY ARTERY CALCIFICATION: None visualized on this study. PLEURA: There is no pleural effusion. No pleural mass or thickening. UPPER ABDOMEN: Status post cholecystectomy. OSSEOUS STRUCTURES: No destructive bone lesions. CT/CT chest wo IV con IMPRESSION: Stable pulmonary nodules since 08/12/2021. Follow-up as clinically indicated.
== END 2023-08-28 15:02 | disposition home or self-care (01) ==
LOC: HO.CT 15:01
PROVIDERS: PCP Internal Medicine; Visit Provider Hospitalist
DX: R91.8 Other nonspecific abnormal finding of lung field (principal)
CPT/HCPCS: 71250

== ENCOUNTER 2023-09-11 09:53 | Outpatient (AMB) | payer OTHER, SELFPAY ==
[2023-09-11 09:59] VITALS: PULSE 73; O2SAT 98; BMI 38.6
--- NOTE | 2023-09-11 09:59 | A.OFFVIS_ITS ---
Intake Vital Signs 09/11/23 09:59 Height 5 ft 2 in Weight 211 lb BMI 38.6 Pulse 73 Pulse Source Pulse Oximeter Pulse Oximetry (%) 98 Oxygen Delivery Method Room Air Intake Visit Reasons: Dyspnea Computer Mechanic Required: No Allergies No Known Allergies Allergy (Mild, Verified 09/11/23 10:00) NKA HPI HPI Comments History of Present Illness Details The patient is a 47-year-old woman with a known history of asthma, tobacco dependency and pulmonary nodules. The patient states that she has been having worsening shortness of breath with activity. Yyys-cg-tqqvyfwv severity. She does have inhaler, Symbicort. However, has resulted in irritation to her mouth and she does have a hard time tolerating it. She does not use a spacer with it. Currently she is in the 160 dose which is the higher dose. We talked about the importance of using a spacer and also hopefully with minimizing the inhaled steroids will could have her tolerated better. But his symptoms she should be using on a daily basis. I am hopeful that we can have her tolerated better. the patient did have a CT scan of the chest done in [place] with used to be very even last in February 2020 approximately where she had multiple pulmonary nodules largest 1 measuring up to 6 mm in size. In addition to that the patient already has evidence of emphysema. the patient understands that she needs to quit smoking. She does have a lot of family support. The patient is not ready at this time since she is going to significant amount of stress. However, she will come up with a quit date. 10/24/2021 the patient is here for a pulmonary follow-up visit. 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 she has seen multiple pain specialist for without any significant improvement. Currently she is on Lyrica. It does help her some but still having some discomfort. Patient still on a small dose and we can increase it at nighttime to help her with her discomfort at night. and the patient denies any vesicles although she has had chickenpox therefore post herpetic neuralgia cannot be ruled out either. She did undergo pulmonary function studies which I personally reviewed with her. Appears that she does have relatively normal PFTs except for a low normal total lung capacity due to her surgery and a mild diffusion impairment also due to her surgery. after the biopsy she was told that she did not have cancer although was unclear exactly what the biopsy showed. Therefore I will have her sign a release of medical records to get the pathology from [facility]. The patient continues on her Symbicort and also continues on the albuterol. Again we talked about smoking cessation. The patient is very stressed but she does want to quit. as a personally reviewed her CT scan of the chest demonstrating the postoperative changes. She also has pulmonary nodules. She also has the beginnings of emphysema. 04/25/2022 The patient is here for a pulm onary follow-up visit. Overall the patient is doing well from a respiratory status. She continues uses Symbicort. She also has a rescue inhaler which she does not require. Unfortunate she continues to smoke cigarettes. She has been motivated to quitting but she has been very stressed that results in more smoking. We did talk about different nicotine therapies including the Nicotrol inhaler. I will send that to the pharmacy so she can start using it with hopes to switching over to the Nicotrol inhaler and subsequently be able to wean off from that. In addition to that we did review her again her CT scan of the chest demonstrating some postoperative changes. The patient needs to have a repeat CT scan to follow up with those changes. Patient also has underlying non calcified pulmonary nodules that do n eed follow-up. The patient still having significant back pain. She has been on Lyrica. She is working with her pain specialist. I believe she is going to be referred to a different pain specialist which is helpful. In the meantime I did recommend she talk to her primary care or pain specialist for further adjustments and her Lyrica medication. 10/24/2022 the patient is here for pulmonary follow-up visit. The patient continues to be about the same. She continues use her respiratory medication. She is struggling with smoking. She could not get the Nicotrol inhaler Because it was sent to the wrong pharmacy. I will rx chantix. She will monitor for any mood changes. We did review her last CT scan of the chest on August 2022 demonstrating stable pulmonary nodules. Due to high risk of lung cancer will go ahead and repeat her CT scan in a year's time. In the meantime on examination the patient does have a murmur best heard at the left sternal border. She did undergo an ECHO demonstrating mild hypertrophy and a dilated LA. Trivial valvular regurgitation. 06/19/2023 the patient is here for a pulmonary follow-up visit. Mild in severity. Also complains of a cough. Typically congested in the morning. Unfortunately she continues to smoke cigarettes. She was very motivated to start Chantix and quit but then her father and has been dealing with significant anxiety and stress. The patient does promise her that that she will quit smoking. She will go ahead and try the Chantix. The patient understands that if she does go a Chantix she needs to monitor for any depressive symptoms. She still has a prescription. In the meantime her last CT scan was back in August 2022 with pulmonary nodules. Which have been stable. The patient is high risk for cancer therefore will repeat the CT scan August 2023. will follow-up with her after that to review. Will also optimize respiratory therapy based switching her Spiriva to Stiolto. I am hoping that the combination long- acting bronchodilators will provide with additional improvement in her respiratory symptoms. 09/11/2023 the patient is here for a pulmo nary follow-up visit. She is very excited. She was able to quit smoking. She is avoid cigarettes now for about 40 days. She has been taking the Chantix and seems to be working. She has not happy about the weight gain but she is trying to stay active in making dietary changes. The patient did have a CT scan of the chest that was personally by me that she had back in August 2023 demonstrating stable pulmonary nodules and also stable cyst. She has multiple cysts on her lungs. She does continue to use her respiratory therapy. She will continue the Chantix for another 2-3 months. I will make sure she has refills. The patient will follow-up in 10-12 months. If she has any worsening symptoms prior to that she will call for an earlier assessment. [facility] Medical History Asthma Asthma-COPD overlap syndrome COPD (chronic obstructive pulmonary disease) Fibromyalgia Hx of esophagitis Hx of gastritis Murmur Pulmonary nodules Sacroiliitis Spondylolisthesis Spondylosis of lumbar region without myelopathy or radiculopathy Tobacco dependence Surgical History History of cholecystectomy (~2014) History of foot surgery (~2006) History of lung surgery (~2014) Social History Alcohol intake: never Patient Tobacco Use Status: Current everyday Tobacco user Tobacco use type: Cigarette Cigarette Packs Per Day: 1 Cigarettes Per Day: 5 Years Smoked: 12 years Substance Use Type: Marijuana Review of Systems Const Denies night sweats ENT Denies change in voice, Denies lip swelling, Denies mouth pain, Reports nasal congestion, Reports nasal discharge and Denies tongue swelling Card Denies chest pain and Denies dyspnea on exertion Resp Denies chest congestion, Reports cough, Reports pain on inspiration, Reports pain with cough and Denies dyspnea on exertion GI Denies abdominal pain Musc Reports back pain, Reports arthralgias and Reports joint swelling Neuro Denies Neuro-related abnormal movements Psych Denies no additional complaints Talha/Lymph Denies easy bleeding and Denies lymphadenopathy Aller/Immun Denies lip swelling and Denies tongue swelling Physical Exam Vital Signs: Last Vital Signs Pulse 73 09/11/23 09:59 Pulse Ox 98 09/11/23 09:59 Oxygen Delivery Method Room Air 09/11/23 09:59 BMI result Body Mass Index 38.6 Const General: alert Neck Neck: Yes normal visual inspection, Yes full ROM and Yes no lymphadenopathy Chest Chest palpation & inspection: normal inspection of the chest Resp Effort & Inspection: normal respiratory effort Auscultation: no rhonchi, no wheezes and diminished lung sounds Cardio Rate: regular rate Rhythm: regular rhythm Heart sounds: S1 normal heart sound present and S2 normal heart sound present GI Palpation (GI): Soft to palpation and nontender Auscultation: normal bowel sounds Skin General skin exam: rashes and/or lesions noted Results Reviewed Results Reviewed: [address] [address] [address] Scan Report Signed Patient: Romana Cameron MR#: [id number] : 1975 Acct:[id number] Age/Sex: 48 / F ADM Date: 08/28/23 Loc: HO.CT Attending Dr: Bogdan Hook MD Ordering Physician: Bogdan Hook MD Date of Service: 08/28/23 Procedure(s): CT chest wo IV con Accession Number(s): [id number] cc: ROLLY OLIVEIRA MD; Bogdan Hook MD~ EXAMINATION: CT CHEST WITHOUT CONTRAST CLINICAL INFORMATION: Prior abnormal imaging. COMPARISON: 08/08/2022 and 08/12/2021 TECHNIQUE: Multidetector volumetric CT imaging of the chest was done. Axial MIP volume rendering provided. Sagittal and coronal reformatted images were obtained. This CT examination was performed using dose optimization techniques as appropriate, variously including the following: *Automated exposure control *Adjustment of mA and/or kV according to patient size (this includes techniques or standardized protocols for targeted exams where dose is matched to indication/reason for exam; i.e. extremities or head) *Use of iterative reconstruction technique DLP: 182 mGy-cm FINDINGS: LUNGS: Mild centrilobular emphysema. Postsurgical changes in the left lower lobe. 4 mm subpleural pulmonary nodule right middle lobe on image 225 of series 5. 6 mm nodule along the right minor fissure on image 168 of series 5. Central airways are patent. MEDIASTINUM: Prominent thymic tissue in the anterior mediastinum is stable. No bulky axillary, hilar or mediastinal lymphadenopathy. Great vessels are of normal caliber. Heart size is normal. No pericardial effusion. CORONARY ARTERY CALCIFICATION: None visualized on this study. PLEURA: There is no pleural effusion. No pleural mass or thickening. UPPER ABDOMEN: Status post cholecystectomy. OSSEOUS STRUCTURES: No destructive bone lesions. CT/CT chest wo IV con IMPRESSION: Stable pulmonary nodules since 08/12/2021. Follow-up as clinically indicated. Dictated By: Hector Gleason MD Signed By: <Electronically signed by Hector Gleason MD in OV> 08/31/23 1145 DD/ 1601 TD/TT: Office Engineer: Assessment & Plan Assessment & Plan (1) Pulmonary nodules: Code(s): R91.8 - Other nonspecific abnormal finding of lung field (2) Tobacco dependence: Code(s): F17.200 - Nicotine dependence, unspecified, uncomplicated (3) Murmur: Code(s): R01.1 - Cardiac murmur, unspecified (4) Asthma-COPD overlap syndrome: Code(s): J44.9 - Chronic obstructive pulmonary disease, unspecified Plan [facility] tobacco cessation: restart chantix short-acting beta agonist as needed CT chest 08/2024 follow-up 1 year Orders: Orders CT chest wo IV con 08/15/24 R91.8 - Other nonspecific abnormal finding of lung field Medications: New varenicline (Chantix Continuing Month Box) 1 mg PO BID 60 tabs 4RF 30 days Coding Level of Care Code Est Pt Level 4 (32318) Diagnoses Pulmonary nodules R91.8 Tobacco dependence F17.200 Murmur R01.1 Asthma-COPD overlap syndrome J44.9 Time Spent (min) 17
== END 2023-09-11 10:12 | disposition home or self-care (01) ==
PROVIDERS: PCP Internal Medicine; Visit Provider Hospitalist
DX: R91.8 Other nonspecific abnormal finding of lung field (principal); F17.200 Nicotine dependence, unspecified, uncomplicated; R01.1 Cardiac murmur, unspecified; J44.9 Chronic obstructive pulmonary disease, unspecified
CPT/HCPCS: 99214

== ENCOUNTER → 2023-09-11 09:53 | Outpatient (BNVA) | payer OTHER, SELFPAY | PROVIDERS: PCP Internal Medicine; Visit Provider Hospitalist | DX: R91.8 Other nonspecific abnormal finding of lung field (principal); R01.1 Cardiac murmur, unspecified; J44.9 Chronic obstructive pulmonary disease, unspecified; F17.210 Nicotine dependence, cigarettes, uncomplicated | CPT/HCPCS: 99212 ==

== ENCOUNTER 2024-08-25 16:57 | Outpatient (REF) | payer OTHER, SELFPAY ==
--- NOTE | ~2024-08-25 | CT_ITS ---
CLINICAL HISTORY: R91.8 - Other nonspecific abnormal finding of lung field CT chest without contrast Comparison: None Findings: The heart is normal size. The visualized thyroid and mediastinum are unremarkable. No consolidation or effusion. There is left lower lobe scarring. The upper abdomen is unremarkable. The bones are intact. IMPRESSION: 1. No acute findings. This document has been electronically signed by: Tung Rodriguez MD on 08/27/2024 07:24:03
== END 2024-08-25 16:58 | disposition home or self-care (01) ==
LOC: HO.CT 16:57
PROVIDERS: PCP Internal Medicine; Visit Provider Hospitalist
DX: R91.8 Other nonspecific abnormal finding of lung field (principal)
CPT/HCPCS: 71250

== ENCOUNTER → 2024-08-25 16:58 | Outpatient (BNV) | payer OTHER, SELFPAY | PROVIDERS: PCP Internal Medicine; Visit Provider Specialist | DX: R91.8 Other nonspecific abnormal finding of lung field (principal) | CPT/HCPCS: 71250 ==

== ENCOUNTER 2024-09-15 10:57 | Outpatient (AMB) | payer OTHER, SELFPAY ==
--- NOTE | 2024-09-15 11:11 | A.OFFVIS_ITS ---
Vital Signs 09/15/24 11:12 Height 5 ft 2 in Weight 218 lb 4.122 oz BMI 39.9 BP 160/92 H Blood Pressure Location Rt brachial Position Sitting Pulse 75 Pulse Source Pulse Oximeter Pulse Oximetry (%) 100 Oxygen Delivery Method Room Air Intake Visit Reasons: Dyspnea Allergies No Known Allergies Allergy (Mild, Verified 09/15/24 11:16) JACQUELINE MESA Comments Details: The patient is a 49-year-old woman with a known history of asthma, tobacco dependency and pulmonary nodules. The patient states that she has been having worsening shortness of breath with activity. [id number]-li-[id number] severity. She does have inhaler, Symbicort. However, has resulted in irritation to her mouth and she does have a hard time tolerating it. She does not use a spacer with it. Currently she is in the 160 dose which is the higher dose. We talked about the importance of using a spacer and also hopefully with minimizing the inhaled steroids will could have her tolerated better. But his symptoms she should be using on a daily basis. I am hopeful that we can have her tolerated better. the patient did have a CT scan of the chest done in [place] with used to be very even last in February 2020 approximately where she had multiple pulmonary nodules largest 1 measuring up to 6 mm in size. In addition to that the patient already has evidence of emphysema. the patient understands that she needs to quit smoking. She does have a lot of family support. The patient is not ready at this time since she is going to significant amount of stress. However, she will come up with a quit date. 10/24/2021 the patient is here for a pulmonary follow-up visit. 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 she has seen multiple pain specialist for without any significant improvement. Currently she is on Lyrica. It does help her some but still having some discomfort. Patient still on a small dose and we can increase it at nighttime to help her with her discomfort at night. and the patient denies any vesicles although she has had chickenpox therefore post herpetic neuralgia cannot be ruled out either. She did undergo pulmonary function studies which I personally reviewed with her. Appears that she does have relatively normal PFTs except for a low normal total lung capacity due to her surgery and a mild diffusion impairment also due to her surgery. after the biopsy she was told that she did not have cancer although was unclear exactly what the biopsy showed. Therefore I will have her sign a release of medical records to get the pathology from [facility]. The patient continues on her Symbicort and also continues on the albuterol. Again we talked about smoking cessation. The patient is very stressed but she does want to quit. as a personally reviewed her CT scan of the chest demonstrating the postoperative changes. She also has pulmonary nodules. She also has the beginnings of emphysema. 04/25/2022 The patient is here for a pulmonary follow-up visit. Overall the patient is doing well from a respiratory status. She continues uses Symbicort. She also has a rescue inhaler which she does not require. Unfortunate she continues to smoke cigarettes. She has been motivated to quitting but she has been very stressed that results in more smoking. We did talk about different nicotine therapies including the Nicotrol inhaler. I will send that to the pharmacy so she can start using it with hopes to switching over to the Nicotrol inhaler and subsequently be able to wean off from that. In addition to that we did review her again her CT scan of the chest demonstrating some postoperative changes. The patient needs to have a repeat CT scan to follow up with those changes. Patient also has underlying non calcified pulmonary nodules that do need follow-up. The patient still having significant back pain. She has been on Lyrica. She is working with her pain specialist. I believe she is going to be referred to a different pain specialist which is helpful. In the meantime I did recommend she talk to her primary care or pain specialist for further adjustments and her Lyrica medication. 10/24/2022 the patient is here for pulmonary follow-up visit. The patient continues to be about the same. She continues use her respiratory medication. She is struggling with smoking. She could not get the Nicotrol inhaler Because it was sent to the wrong pharmacy. I will rx chantix. She will monitor for any mood changes. We did review her last CT scan of the chest on August 2022 demonstrating stable pulmonary nodules. Due to high risk of lung cancer will go ahead and repeat her CT scan in a year's time. In the meantime on examination the patient does have a murmur best heard at the left sternal border. She did undergo an ECHO demonstrating mild hypertrophy and a dilated LA. Trivial valvular regurgitation. 06/19/2023 the patient is here for a pulmonary follow-up visit. Mild in severity. Also complains of a cough. Typically congested in the morning. Unfortunately she continues to smoke cigarettes. She was very motivated to start Chantix and quit but then her father and has been dealing with significant anxiety and stress. The patient does promise her that that she will quit smoking. She will go ahead and try the Chantix. The patient understands that if she does go a Chantix she needs to monitor for any depressive symptoms. She still has a prescription. In the meantime her last CT scan was back in August 2022 with pulmonary nodules. Which have been stable. The patient is high risk for cancer therefore will repeat the CT scan August 2023. will follow-up with her after that to review. Will also optimize respiratory therapy based switching her Spiriva to Stiolto. I am hoping that the combination long- acting bronchodilators will provide with additional improvement in her respiratory symptoms. 09/11/2023 the patient is here for a pulmonary follow-up visit. She is very excited. She was able to quit smoking. She is avoid cigarettes now for about 40 days. She has been taking the Chantix and seems to be working. She has not happy about the weight gain but she is trying to stay active in making dietary changes. The patient did have a CT scan of the chest that was personally by me that she had back in August 2023 demonstrating stable pulmonary nodules and also stable cyst. She has multiple cysts on her lungs. She does continue to use her respiratory therapy. She will continue the Chantix for another 2-3 months. I will make sure she has refills. The patient will follow-up in 10-12 months. If she has any worsening symptoms prior to that she will call for an earlier assessment. 09/15/2024 the patient is here for a pulmonary follow-up visit. Overall the patient has been doing fairly well. She had been exercising regularly although recently she stopped going to the gym. She does have dyspnea on exertion. Specially going up a flight of stairs. She gets very winded. Moderate severity. This is concerning to her. She did have CT scan of the chest which I personally reviewed and she does have cystic changes and nodules which are stable. No significant changes. She also quit smoking back in the fall of 2023 which is also reassuring. She is taking her respiratory medications as prescribed. The patient did have a brief walking oximetry with me in the office. She did have significant tachycardia when she went up 1 flight of stairs. Up to 120 beats per minute. She was visibly winded. Will go ahead and request a stress echo to make sure that it cardiac status is stable. [facility] Medical History (Updated 09/15/24 @ 21:05 by Bogdan Hook MD) Dyspnea Murmur Asthma Tobacco dependence Asthma-COPD overlap syndrome Pulmonary nodules Fibromyalgia Spondylolisthesis COPD (chronic obstructive pulmonary disease) Hx of gastritis Hx of esophagitis Sacroiliitis Spondylosis of lumbar region without myelopathy or radiculopathy Surgical History History of foot surgery (~2006) History of cholecystectomy (~2014) History of lung surgery (~2014) Social History (Updated 09/15/24 @ 11:16 by Leticia Byrd CMA) Alcohol intake: never Patient Tobacco Use Status: Former Tobacco user Tobacco use type: Cigarette Cigarette Packs Per Day: 1 Cigarettes Per Day: 5 Years Smoked: 12 years Substance Use Type: Marijuana Review of Systems Const Denies night sweats ENT Denies change in voice, Denies lip swelling, Denies mouth pain, Reports nasal congestion, Reports nasal discharge and Denies tongue swelling Card Denies chest pain and Reports dyspnea on exertion Resp Denies chest congestion, Reports cough and Reports dyspnea on exertion GI Denies abdominal pain Musc Reports back pain, Reports arthralgias and Reports joint swelling Neuro Denies Neuro-related abnormal movements Psych Denies no additional complaints Talha/Lymph Denies easy bleeding and Denies lymphadenopathy Aller/Immun Denies lip swelling and Denies tongue swelling Physical Exam Vital Signs: Last Vital Signs Pulse 75 09/15/24 11:12 BP 160/92 H 09/15/24 11:12 Pulse Ox 100 09/15/24 11:12 Oxygen Delivery Method Room Air 09/15/24 11:12 BMI result Body Mass Index 39.9 Const General: alert Neck Neck: Yes normal visual inspection, Yes full ROM and Yes no lymphadenopathy Chest Chest palpation & inspection: normal inspection of the chest Resp Effort & Inspection: normal respiratory effort Auscultation: no rhonchi, no wheezes and diminished lung sounds Cardio Rate: regular rate Rhythm: regular rhythm Heart sounds: S1 normal heart sound present and S2 normal heart sound present GI Palpation (GI): Soft to palpation and nontender Auscultation: normal bowel sounds Skin General skin exam: rashes and/or lesions noted Assessment & Plan Assessment & Plan (1) Pulmonary nodules: Code(s): R91.8 - Other nonspecific abnormal finding of lung field Category: Medical (2) Tobacco dependence: Code(s): F17.200 - Nicotine dependence, unspecified, uncomplicated Category: Medical (3) Asthma-COPD overlap syndrome: Code(s): J44.9 - Chronic obstructive pulmonary disease, unspecified Category: Medical (4) Dyspnea: Code(s): R06.00 - Dyspnea, unspecified Category: Medical Qualifiers: Dyspnea type: dyspnea on exertion Qualified Code(s): R06.09 - Other forms of dyspnea Plan [facility] tobacco cessation: quit short-acting beta agonist as needed stress ECHO follow-up 4-6 months Coding Level of Care Code Est Pt Level 4 (46722) Diagnoses Pulmonary nodules R91.8 Tobacco dependence F17.200 Asthma-COPD overlap syndrome J44.9 Dyspnea on exertion R06.09 Dyspnea type: dyspnea on exertion Time Spent (min) 17
[2024-09-15 11:12] VITALS: BP 160/92; PULSE 75; O2SAT 100; BMI 39.9
--- OUTSIDE RECORDS SUMMARY | 2024-09-15 11:42 | XMS_ITS | Encounter Summary ---
Author Organization [facility] Address [address] [place] [id number] Care Team Providers Care Collection Systems Technician Name Role Phone Unavailable Primary Care Provider Unavailabl e Encounter Details Date Type Department Care Team ([facility] st Contact Info) Description 09/05/2024 2:00 PM EST Office Visit [address] [phone] Manjit Moncada DMD [address] [place] [id number] Social History Tobacco Use Types Packs/Day Years Used Date Smoking Tobacco: Former Cigarettes Q uit: 09/06/2017 Passive Smoke Exposure: Never Smokeless Tobacco: Never Comments:since age 18 - 3/4 pack now; quit for 9 mon in 2018 Patient quit again 09/2023 Alcohol Use Standard Drinks/Week Comments No 0 (1 standard drink = 0.6 oz pur e alcohol) Social Connections Answer Date Recorded Connectedness 0 04/09/2024 Financial Resource Strain Answer Date R ecorded Financial Resource Strain 0 2018 Stress Answer Date Recorded Stress 0 03/23/2019 Physical Activity Answer Date Recorded Physical Activity 0 03/23/2019 Food Insecurity Answer Date Recorded Food 0 04/28/2024 Transportation Needs Answer Date Record ed Transportation 0 03/23/2019 Housing Stability Answer Date Recorded Housing 0 03/23/2019 Safety and Environment Answer Date Brenden rded Safety 0 07/07/2019 Utilities Answer Date Recorded Utilities 0 03/23/2019 Employment Answer Date Recorded Stress 0 10/21/2021 Comments No Sex and Gender Information Value Date Recorded Sex Assigned at Female 06/09/2017 6:57 AM PST Legal Sex Female 12:47 PM PDT Gender Identity Female 06/09/2017 6:57 AM PST Sexual Orientation Straight 06/09/2017 6: 57 AM PST Occupation Industry Job Start Date Job End Date unemployed Not on file Not on file Not on file COVID-19 Exposure Response Date Recorded In the last 10 days, have nakul u been in contact with someone who was confirmed or suspected to have Coronavirus/COVID-19? No / Unsure 08/08/2024 1:12 PM EST documented as of this encounter Last Filed Vital Signs Vital Sign Reading Time Taken Comments Blood Pressure 158/93 09/05/2024 3:02 PM EST Pulse 78 09/05/2024 3:02 PM EST Temperature - - Respiratory Rate - - Oxygen Saturation - - Inhaled Oxygen Concentration - - Weight - - Height - - Body Mass Index - - documented in this encounter Plan of Treatment Upcoming Encounters Date Type Department Care Team (Late st Contact Info) Description 09/26/2024 1:00 PM EST Office Visit [facility] [address] [place] [phone] Stephani Phan, DDS [address] [place] [address] 10/17/2024 1:00 PM EDT Office Visit [facility] [address] [place] [phone] Manjit Moncada, DMD [address] [place] [address] 12/19/2024 11:00 AM EDT Office Visit [facility] [address] [place] [phone] Garfield Crocker, RDH [address] [place] [address] documented as of this encounter Visit Diagnoses Not on filedocumented in this encounter Additional Health Concerns Assessment Noted Time PHQ-9 Depression Total Score: 14 020 10:41 AM PDT documented as of this encounter
--- OUTSIDE RECORDS SUMMARY | 2024-09-15 11:42 | XMS_ITS | Clinical Summary ---
Author Organization [facility] it Address [address] [place] [address] Care Team Providers Care Cat Dog Or Other Pet Groomer Name Role Phone Emelia Lewis NP Primary Care Provider Unavailabl e Surgical History Surgery Date Site/Laterality Comments COLONOSCOPY PROCEDURE: HISTORICAL COLONOSCOPY Medical History Medical History Date Comments Chronic diarrhea 03/11/2017 DX:Chronic diar vangie Dyspepsia 12/18/2017 DX:Dyspepsia Hematochezia 12/30/2016 DX:Hematochezia Morbid obesity with BMI of 4 5.0-49.9, adult (CMS/HCC) 11/06/2017 DX:Morbid obesity with BMI o f 45.0-49.9, adult (FORM[facility]LY [facility]); COMMENT: Bariatric Surgery Program Surgeon: Initial visit date 07/02/17 [facility] Psychiatry clearance: Provider and date [facility]: [facility] [facility] Physical: Labs: Needs to quit smoking. Support groups: Dietitian-Dietary Clearance: Provider and date Requested weight loss: Last Surgery appt prior to Surgery: Prior* Social History Tobacco Use Types Packs/Day Years Used Date Smoking Tobacco: Every Day Cigarettes Smokeless Tobacco: Never Alcohol Use Standard Drinks/Week Comments No 0 (1 standard drink = 0.6 oz pur e alcohol) Comments Unknown Sex and Gender Information Value Date Recorded Sex Assigned at Not on file Legal Sex Female 5:20 AM EST Gender Identity Not on file Sexual Orientation Not on file Obstetrics History Plan of Treatment Health Maintenance Due Date Last Done Comments Breast Cancer Screening 1977 COVID-19 Vaccine (#1) 1982 DTaP,Tdap,and Td Vaccines (1 - Tdap) 1996 Hepatitis B Vaccines (1 of 3 - 19+ 3-dose series) 1996 Pneumococcal Vaccine: Pediat rics (0 to 5 Years) and At-Risk Patients (6 to 64 Years) (1 of 2 - PCV) 1996 Cervical Cancer Screening: P ap Smear 1998 Colorectal Cancer Screening: Colonoscopy 07/12/2022 Depression Screening 07/12/2022 HIV Screening 07/12/2022 Hepatitis C Screening 07/12/2022 Social Influencers of Health Screening 07/12/2022 Influenza Vaccine (#1) 2024 HIB Vaccines Aged Out No longer eligi ble based on patient's age to complete this topic HPV Vaccines Aged Out No longer eligi ble based on patient's age to complete this topic Hepatitis A Vaccines Aged Out No long er eligible based on patient's age to complete this topic IPV Vaccines Aged Out No longer eligi ble based on patient's age to complete this topic MMR Vaccines Aged Out No longer eligi ble based on patient's age to complete this topic Meningococcal ACWY Vaccine Aged Out N o longer eligible based on patient's age to complete this topic Meningococcal B Vacine Aged Out No lo nger eligible based on patient's age to complete this topic RSV Immunization Patients Un lara 20 months Aged Out No longer eligible b ased on patient's age to complete this topic Varicella Vaccines Aged Out No longer eligible based on patient's age to complete this topic Care Teams Cat Dog Or Other Pet Groomer Relationship Specialty Start Date End Date Emelia Lewis NP Need Updated Address PCP - General 10/23/20
--- OUTSIDE RECORDS SUMMARY | 2024-09-15 11:42 | XMS_ITS | Clinical Summary ---
Author Organization [facility] Address [address] [place] [address] Care Team Providers Care Yarn Winder Name Role Phone Unavailable Primary Care Provider Unavailabl e Source Comments PLEASE NOTE, if this patient is a minor, it may be UNLAWFUL to discuss sensitive information that is contained in these records (such as FAMILY PLANNING, MENTAL HEALTH or SUBSTANCE ABUSE) with the minor patient's parent or other person without the patient's specific authorization.[facility] Allergies No known active allergies Medications nicotine (NICODERM CQ) 21 mg/24 hr patchIndications :Smoking addiction Place 1 Patch onto the skin once daily (every 24 hours) 58 Patch 1 9 Active nicotine, polacrilex, (NICORETTE) 2 mg gumIndications:S moking addiction Take 1 Each by mouth as needed for smoking cessation Do not eat or drink for 15 minutes before or while chewing gum. 110 Each 1 9 Active oxybutynin chloride (DITROPAN) 5 mg tabletIndication s:Urinary incontinence, unspecified type Take 1 Tab by mouth once daily PER UROLOGY 9 Active hydroxychloroqui ne (PLAQUENIL) 200 mg tablet Take 400 mg by mouth once daily PER RHEUM 4 9 Active OXcarbazepine (TRILEPTAL) 600 mg tablet 1 tab in AM and 1.5 tab QHS. PER PSYCH Active lidocaine (LIDODERM) 5 % patchIndications :Chronic low back pain Place 1 Patch onto the skin every 12 (twelve) hours (12 HOURS ON, 12 hours OFF) 30 Patch 3 9 Active ibuprofen 600 mg tabletIndication s:Chronic low back pain Take 1 Tab by mouth 4 (four) times daily as needed for pain 60 Tab 1 9 Active acetaminophen (TYLENOL) 500 mg tabletIndication s:Chronic low back pain Take 1 Tab by mouth every 6 (six) hours as needed for pain 90 Tab 1 9 Active clonazePAM (KLONOPIN) 0.5 mg tablet 2 tabs in AM, 1 tab QHS - PER PSYCH Active DULoxetine (CYMBALTA) [address] capsule Take 60 mg by mouth once daily PER PSYCH 3 9 Active COMBIVENT RESPIMAT 20-100 mcg/actuation inhaler PER PULM 5 9 Active nystatin (MYCOSTATIN) 100,000 unit/gram cream APPLY TWICE A DAY TO FEET 4 9 Active zolpidem (AMBIEN) 5 mg tablet PER PSYCH 3 9 Active tiotropium-oloda teroL (STIOLTO RESPIMAT) 2.5-2.5 mcg/actuation mist Take 2 Inhalation by mouth once daily PRESCRIBED BY PULM. 0 Active cyclobenzaprine (FLEXERIL) 10 mg tabletIndication s:Fibromyalgia TAKE 1 TAB BY MOUTH 2 (TWO) TIMES DAILY NEEDED FOR MUSCLE SPASMS 60 Tab 2 0 Active topiramate (TOPAMAX) 50 mg tabletIndication s:Excessive appetite TAKE 1 TABLET BY MOUTH TWICE DAILY W/ BREAKFAST AND DINNER TO CONTROL APPETITE 60 Tab 3 0 Active pantoprazole (PROTONIX) 40 mg EC tabletIndication s:Other chronic gastritis without hemorrhage TAKE 1 TABLET BY MOUTH EVERY DAY 30 Tab 2 0 Active fluoride, sodium, (SF 5000 PLUS) 1.1 % creaIndications: Encounter for dental examination Place in mouth once daily apply a thin ribbon on toothbrush. [place] thoroughly once daily for two minutes, preferably at bedtime. After use expectorate. For best results, do not eat, drink, or rinse for 30 minutes. 51 g 1 2 Active ibuprofen 400 mg tabletIndication s:Pain, dental Take 1 Tablet by mouth 4 (four) times daily as needed for pain for up to 5 days 20 Tablet 5 09/17/19 25 Active amoxicillin (AMOXIL) 500 mg capsuleIndicatio ns:Pain, dental Take 1 Capsule by mouth 3 (three) times daily for 7 days 21 Capsule 5 09/19/19 25 Active Active Problems Patient Care Coordination No te Formatting of this note migh t be different from the original. Problem Noted Date Diagnosed Date Fibromyalgia 08/30/2019 Overview (08/30/2019): As per ATC History of CT scan of abdomen 08/05/2019 Overview (08/05/2019): 07/17/19 [facility] - Abdominal CT - Revealed non obstructing right renal calculi, the largest 2 mm. An intrauterine device is noted but is rotated 90 degrees along its long axis, with the short arms of the device projecting in the anterior posterior direction. This is unchanged from the previous study. There is a 3 cm circumscribed round hypoattenuating mass in the right adnexa which is most likely a physiologic ovarian cyst. Curvilinear juxtapleural opacity is unchanged at the base of the left lower lobe, consistent with scarring. Internal hemorrhoid 08/01/2019 WENDI (stress urinary incontinence, female) 2018 Overview (07/09/2019): 03/29/19 - SURGERY: Retropubic midurethral sling with [employer] system, cystourethroscopy - done at [facility] by Melissa Durham DO. Indication: WENDI Diabetes ([facility]) 04/28/2019 Overview (04/28/2019): Per 02/26/19, [facility] ED Centrilobular emphysema ([facility]) 01/20/2019 Overview (08/04/2019): Scheduled for Pulmonology apt 07/14/19 Per 01/20/19, Walter Doe MD, Pulmonology Report: Normal PFT 01/13/19 - Combivent respimat Q 6 hrs PRN History of lung surgery 01/20/2019 Overview (08/05/2019): Scheduled for Pulmonology apt 07/14/19 Per 01/20/19, Walter Doe MD, Pulmonology Report: - 02/20/15, [facility], LLL wedge resection due to pulmonary nodule as per patient compatible with benign lung nodule. Nocturnal hypoxia 01/20/2019 Overview (04/28/2019): Per 01/20/19, Walter Doe MD, Pulmonology Report: Polysomnography showed 1. No sleep apnea 2. Nocturnal hypoxia, she may need oxygen, start in 2lpm oxygen supplement at night. Chronic insomnia 11/10/2018 Overview (03/23/2019): 12/2018 Home Sleep Study did not reveal sleep apnea or nocturnal hypoxia. Nicotine dependence, uncomplicated 11/10/2018 Overview (04/28/2019): Per 01/20/19, Walter Doe MD, Pulmonology Report: Started at 18 years old, Quit: , 4 times, around <1 pack daily at the most, for at least 20 years. Patient is >20 PPY. PND (paroxysmal nocturnal dyspnea) 11/10/2018 Snoring 11/10/2018 Lumbar radiculitis 09/03/2018 Overview (08/04/2019): - 12/15/18, [facility] - trial PT. RTC in 7 weeks. Failed PT at [place] 09/04, went to ER and missed appt. 09/08. DCed due to no symptom improvement. - 09/03/18, [facility] pain management: A/P: Dx: lumbar radiculitis Facet arthropathy. Pt f/u after her LESI which gave her very short lived benefit. she doesn't want any further injections. we recommend she should go back to her PCP to explore further options,medications etc as we don't do medication management in our practice. Morbid obesity with body mas s index of 45.0-49.9 in adult ([facility]) 11/06/2017 Overview (01/28/2018): Overview: Bariatric Surgery Program Surgeon: Initial visit date 07/02/17 [facility] Psychiatry clearance: Provider and date [facility]CP [facility]: [facility] [facility] Labs: Needs to quit smoking. Support groups: Dietitian-Dietary Clearance: Provider and date Requested weight loss: Last Surgery appt prior to Surgery: Prior Authorization Number: Surgery date goal: Degenerative lumbar disc 09/16/2017 Overview (08/04/2019): - 02/26/19, [facility] Neck Soft Tissue, [facility]: Findings: [...] The included portions of the cervical spine demonstrate normal alignment. There are disc degenerative changes. - 12/15/18, [facility] - trial PT. RTC in 7 weeks. Failed PT at [place] 09/04, went to ER and missed appt. 09/08. DCed due to no symptom improvement. - 09/03/18, [facility] pain management: A/P: Dx: lumbar radiculitis Facet arthropathy. Pt f/u after her LESI which gave her very short lived benefit. she doesn't want any further injections. we recommend she should go back to her PCP to explore further options,medications etc as we don't do medication management in our practice. 06/13/18, MRI Lumbar spine: FINDINGS: This exam is mildly degraded by motion. ALIGNMENT, VERTEBRAE, MARROW, AND DISCS: Vertebral body height, curvature, and alignment are normal. There is disc desiccation from L3 to S1 with mild disc space narrowing at L3-4. Prominent Schmorl's nodes are seen along the L5-S1 opposing endplates. Mild Modic type II endplate changes are seen from L3 to S1. There is also disc desiccation and mild disc space narrowing at T11-12. Benign hemangiomas are noted in the L2 and L3 vertebral bodies. There is no bone marrow edema. CONUS: The conus terminates at about L1-2. PARASPINAL TISSUES: Surrounding paraspinal soft tissues are grossly unremarkable. DETAILED FINDINGS BY LEVEL: T11-12: There is diffuse disc bulging and minor facet spurring causing slight flattening of the ventral thecal sac but without significant canal stenosis. Neural foramen are patent. T12-L1: No canal or neural foraminal stenosis. L1-L2: No canal or neural foraminal stenosis. L2-L3: No canal or neural foraminal stenosis. L3-L4: There is diffuse disc bulging with superimposed small central protrusion, though there is no significant canal stenosis. There is minimal bilateral neural foraminal stenosis. L4-L5: There is diffuse disc bulging as well as mild posterior ligamentous thickening and facet spurring, though there is no canal stenosis. There is mild right and minimal left neural foraminal stenosis. L5-S1: There is diffuse disc bulging asymmetric to the left as well as facet spurring, though there is no canal stenosis. The right neural foramen is patent. There is mild left neural foraminal stenosis. IMPRESSION: Mildly limited exam due to motion. Mild multilevel degenerative changes are seen as described without canal stenosis or definite nerve root impingement. See above. Pulmonary nodules 01/19/2015 Overview (10/14/2019): - Scheduled for Pulmonology apt 07/14/19 - Per 01/20/19, Walter Doe MD, Pulmonology Report: 12/10/[address] scan showed: stable lung nodules. CT 05/27/2016 S/P left lower lobe resection, stable bilateral 4-6 mm pulmonary nodules. F/U recommended in 12 months Small juxtapleural nodules are present at both lung bases, 2 left, 1 right all less than 5mm. CT [place] 01/10/15 07/17/19 [facility] - Abdominal CT - Curvilinear juxtapleural opacity is unchanged at the base of the left lower lobe, consistent with scarring. Slow transit constipation 01/17/2015 Epicondylitis elbow, medial 12/04/2014 Overview (12/04/2014): Cortisone injection 11/20/14 Dr. Lama [facility] GERD (gastroesophageal reflux disease) 5 Atopic dermatitis 10/16/2014 Abdominal pain 10/16/2014 Lupus (systemic lupus erythematosus) ([facility]) Overview (09/14/2019): Per 07/2019 [facility]-On plaquenil 200mg tid Per 01/17/19, [facility] Notes, Dr. Lama: - Polyarthralgias, rash, alopecia, JOAQUÍN 1:40 ([facility]), 1:800 ([facility]), Low C3 and C4. Due for eye exam, last 04/25/15. Client Support Representative: Melissa Hair MD - Lupus under control, continue with hydroxyloroquine ?mg. + diffuse non-arthritic lupus pain, seems most c/w with fibromyalgia (chronic neurological non-arthritic pain). Discussed with her PCP Tx options for this diffuse pain. Possible referral to a pain managment center if PCP feels it is appropriate. F/u 6 months. Bipolar 1 disorder, depressed ([facility]) Overview (04/28/2019): Per 12/24/18, [facility] Urgent Care: Depression - therapist and psych at [place] [facility] Anxiety Resolved Problems Problem Noted Date Diagnosed Date Resolved Date Acute cholecystitis 12/21/2014 04/28/20 Overview (12/21/2014): Admit [facility] 12/07/14 Encounters Date Type Department Care Team Description 09/12/2024 1:00 PM EST Office Visit [facility] [address] [place] [phone] Stacie Zaragoza Pain, dental (Primary Dx) 09/05/2024 2:00 PM EST Office Visit [facility] [address] [place] [phone] Manjit Moncada DMD 08/25/2024 2:00 PM EST Office Visit [facility] [address] [place] [phone] Stephani Phan DDS Encounter for dental examination (Primary Dx) 08/08/2024 1:00 PM EST Office Visit [facility] [address] [place] [phone] Manjit Moncada DMD Tooth missing (Primary Dx) 08/08/2024 Travel 07/28/2024 4:20 PM EST Dental Interim Note [facility] [address] [place] [phone] Tony Rodriguez DMD Follow-up exam (Primary Dx) 07/28/2024 Travel 07/18/2024 1:40 PM EST Office Visit [facility] [address] [place] [phone] Manjit Moncada DMD Tooth missing (Primary Dx) 07/18/2024 Travel 07/11/2024 10:30 AM EST Office Visit [facility] [address] [place] [phone] 2, Bu Hand Bander Fractured dental advent with loss of material (Primary Dx) 07/11/2024 Travel 06/20/2024 10:20 AM EST Office Visit [facility] [address] [place] [phone] Svitlana Alex Encounter for dental examination and cleaning with abnormal findings (Primary Dx); Fractured dental advent with loss of material 06/20/2024 Travel from Last 3 Months Immunizations Name Administration Dates Next Due Flu, Preservative Free 04/28/2019 Hep A, adult 07/28/2019 INFLUENZA, SEASONAL, INJECTABLE 06/21/2018,06/09,04/03/2015,04/25/2010 TDAP 09/03/2015 Family History Medical History Relation Name Comments Diabetes Father Hypertension Father Diabetes Maternal Grandmother Diabetes Mother Hypertension Mother Other (See Comments) Paternal Aunt Lupus Diabetes Paternal Grandmother Relation Name Status Comments Father Maternal Grandmother Mother Paternal Aunt Paternal Grandmother Social History Tobacco Use Types Packs/Day Years Used Date Smoking Tobacco: Former Cigarettes Q uit: 09/06/2017 Passive Smoke Exposure: Never Smokeless Tobacco: Never Tobacco Cessation:Counseling Given: Not Answered Comments:since age 18 - 3/4 pack now; [...] file Not on file Not on file Last Filed Vital Signs Vital Sign Reading Time Taken Comments Blood Pressure 174/107 09/12/2024 1:36 PM EST Pulse 68 09/12/2024 1:36 PM EST Temperature 36.8 ??C (98.2 ??F) 10/14/2019 10:39 AM E DT Respiratory Rate 16 10/14/2019 10:39 AM EDT Oxygen Saturation 98% 10/14/2019 10:39 AM EDT Inhaled Oxygen Concentration - - Weight 100.7 kg (222 lb) 10/14/2019 10:39 AM EDT Height 157.5 cm (5' 2 ) 10/14/2019 10:39 AM EDT Body Mass Index 40.6 10/14/2019 10:39 AM EDT Plan of Treatment Upcoming Encounters Date Type Department Care Team (Late st Contact Info) Description 09/26/2024 1:00 PM EST Office Visit [facility] [address] [place] [phone] Stephani Phan, DDS [address] [place] [address] 10/17/2024 1:00 PM EDT Office Visit [facility] [address] [place] [address] Manjit Moncada DMD [address] [place] [address] 12/19/2024 11:00 AM EDT Office Visit [facility] [address] [place] [phone] Garfield Crocker RDH [address] [place] [address] Health Maintenance Due Date Last Done Comments Diabetes Foot Exam 1977 Diabetes Microalbumin (w/Creatinine) 1977 HPV Screening 1977 Pap + HPV 1977 Retinopathy Screening 1990 HIV Screening 1992 Tobacco Cessation Counseling (#2) 10/16/2015 017, 02/22/2015 Breast Cancer Screening (Mammogram) 2017 Cervical Cancer Screening 10/16/2017 Pap Smear 10/16/2017 10/16/2014 CT Colonography 10/21/2019 FIT/gFOBT 10/21/2019 Fecal DNA 10/21/2019 Flexible Sigmoidoscopy 10/21/2019 Diabetes HbA1c 01/17/2020 07/18/2019, 08/04, 10/16/2014 Annual Preventive Care Visit 07/07/202012/2018, 01/28/2018, 12/04/2016, Additional history exists Relationship Safety Screening/Counseling 07/07/2020 07/07/2019, 01/28/2018 Lipid Screening 07/18/2020 07/18/2019, 08/04, 10/16/2014 Serum Creatinine 07/18/2020 07/18/2019, , 10/16/2014 Imm-Pneumococcal (2 of 2 - PCV) 04/25/2023 , 07/28/2015 [id number] ( season) 2024 07/09/2021, 01/07/2021, 12/17/2020 Alcohol and Drug Screen 08/03/2024 10/14/19 20, 02/15/2019, 01/28/2018, Additional history exists Depression Annual Screen 08/03/2024 020, 01/28/2018 (Managed by Outside Provider), 11/29/2015, Additional history exists Dental Perio Charting 12/15/2024 12/14/2023 , 06/11/2023, 06/12/2022 Dental Prophy 12/20/2024 06/20/2024, 12/01, 06/11/2023, Additional history exists Tobacco Screening 06/20/2025 06/20/2024 Dental BW 06/22/2025 06/20/2024, 04/2023, 12/09/2022, Additional history exists Dental Examination 06/22/2025 06/20/2024, 0 12/14/2023, 06/11/2023, Additional history exists Imm-DTaP/Tdap/Td (2 - Td or Tdap) 09/03/2025 016, 10/25/2012 Hypertension Screening (#1) 09/12/2025 10/16/2014 Colonoscopy 01/21/2027 01/21/2017 Colorectal Cancer Screening 01/21/2027 Dental FMX/Pano 12/15/2028 12/14/2023, 06/12/2022 Hepatitis C Screening Completed 09/09/2023, 019 Imm-Influenza Completed 05/20/2024, 05/04, 05/16/2022, Additional history exists Cervical Ablation/Cold-Knife Conization Discontinued Cervical Cryotherapy Discontinued Colposcopy Discontinued Endometrial Biopsy Discontinued Excision/Leep Discontinued HPV Genotyping Discontinued Imm-Hepatitis B Discontinued Vaginal Pap Discontinued Vulvoscopy Discontinued Procedures Procedure Name Priority Date/Time Associated Diagnosis Comments INTRAORAL - PERIAPICAL EACH ADD RADIOGRAPH IMAGE Routine 09/12/2024 1:00 PM EST Pain, dental INTRAORAL - PERIAPICAL FIRST RADIOGRAPHIC IMAGE Routine 09/12/2024 1:00 PM EST Pain, dental LIMITED ORAL EVALUATION - PROBLEM FOCUSED Routine 09/12/2024 1:00 PM EST Pain, dental 5 CROWN IN PROGRESS Routine 08/25/2024 2 :00 PM EST Encounter for dental examination LIMITED ORAL EVALUATION - PROBLEM FOCUSED Routine 08/08/2024 1:00 PM EST Tooth missing INTRAORAL - PERIAPICAL EACH ADD RADIOGRAPH IMAGE Routine 07/28/2024 4:20 PM EST Follow-up exam NO CHARGE DENTAL VISIT Routine 4:20 PM EST Follow-up exam INTRAORAL - PERIAPICAL FIRST RADIOGRAPHIC IMAGE Routine 07/18/2024 1:40 PM EST Tooth missing 12 SURG PLACEMENT IMPLANT BODY: ENDOSTEAL IMPLANT Routine 07/18/2024 1:40 PM EST Tooth missing CASE PRESENTATION SUBS DTL & EXTENSIVE TX PLN Routine 07/11/2024 10:30 AM EST Fractured dental advent with loss of material 10 F(V) RESIN-BASED COMPOSITE ONE SURFACE ANTERIOR Routine 07/11/2024 10:30 AM EST Fractured dental advent with loss of material PERIODIC ORAL EVALUATION ESTABLISHED PATIENT Routine 06/20/2024 10:20 AM EST Encounter for dental examination and cleaning with abnormal findings DENTAL CASE MANAGEMENT - MOTIVATIONAL INTV Routine 06/20/2024 10:20 AM EST Encounter for dental examination and cleaning with abnormal findings PROPHYLAXIS - ADULT Routine 06/20/2024 1 0:20 AM EST Encounter for dental examination and cleaning with abnormal findings BITEWINGS - FOUR RADIOGRAPHIC IMAGES Routine 06/20/2024 10:20 AM EST Fractured dental advent with loss of material Encounter for dental examination and cleaning with abnormal findings CARIES RISK ASSESSMENT & DOC FINDING HIGH RISK Routine 06/20/2024 10:20 AM EST Encounter for dental examination and cleaning with abnormal findings NUTRITIONAL COUNSELING CONTROL OF DENTAL DISEASE Routine 06/20/2024 10:20 AM EST Encounter for dental examination and cleaning with abnormal findings ORAL HYGIENE INSTRUCTIONS Routine 06/20/2024 10:20 AM EST Encounter for dental examination and cleaning with abnormal findings ORAL CANCER SCREENING Routine 06/20/2024 10:20 AM EST Encounter for dental examination and cleaning with abnormal findings CASE PRESENTATION SUBS DTL & EXTENSIVE TX PLN Routine 06/20/2024 10:20 AM EST Encounter for dental examination and cleaning with abnormal findings PANORAMIC RADIOGRAPHIC IMAGE Routine 12/14/2023 2:00 PM EDT Missing tooth, acquired COMP PERIODONTAL EVALUATION - NEW/EST PATIENT Routine 06/11/2023 10:20 AM EST [facility] COMPREHENSIVE METABOLIC PANEL Routine 07/18/2019 10:48 AM EST Routine general medical examination at a health care facility HEPATITIS A,B,C PANEL Routine 07/18/2019 10:48 AM EST Need for hepatitis C screening test LIPID PANEL Routine 07/18/2019 10:48 AM EST Routine general medical examination at a health care facility HEMOGLOBIN GLYCOSYLATED A1C Routine 07/18/2019 10:48 AM EST Routine general medical examination at a health care facility from Last 3 Months or Most Recently Relevant to Health Maintenance Results * (ABNORMAL) HEPATITIS A,B,C PANEL (07/18/2019 10:48 AM EST) Pathologist [facility] HEPATITIS B SURFACE ANTIBODY POSITIVE(A) NEGATIVE [facility] HEPATITIS B SURFACE ANTIGEN NEGATIVE NEGATIVE [facility] Comment: Over the counter supplements containing high doses of biotin may interfere with this assay. ??If interference is suspected, patients shoud be retested after refraining from biotin supplements for 72 hours. HEPATITIS C VIRUS DIAGNOSTIC NEGATIVE NEGATIVE [facility] HEPATITIS B CORE ANTIBODY NEGATIVE NEGATIVE [facility] HEPATITIS A ANTIBODY TOTAL NEGATIVE NEGATIVE [facility] Comment: Over the counter supplements containing high doses of biotin may interfere with this assay. ??If interference is suspected, patients shoud be retested after refraining from biotin supplements for 72 hours. Blood specimen (specimen) Blood / Unknown 07/18/2019 10:48 AM EST 07/18/2019 11:18 AM EST [employer] [facility] - 07/18/2019 4:46 PM EST [employer], [place] [address] Hat Former - Darlene Nance MD PT ID [id number] ORD# [id number] Chrystal George PA-C LAB - BLOOD DRAW [place] [address], * HEMOGLOBIN, GLYCOSYLATED (A1C) (07/18/2019 10:48 AM EST) GLYCATED HEMOGLOBIN A1C 5.3 <6.5 % [facility] ESTIMATED AVERAGE GLUCOSE 105 mg/dL [facility] Blood specimen (specimen) Blood / Unknown 07/18/2019 10:48 AM EST 07/18/2019 11:18 AM EST [facility] - 07/18/2019 6:23 PM EST [employer], [place] [address] Hat Former - Darlene Nance MD PT ID [id number] ORD# [id number] Chrystal George PA-C LAB - BLOOD DRAW Final Re sult Performing Organization Address City/[facility] Co de Phone Number [facility] [address] [place] [address], * (ABNORMAL) LIPID PANEL (07/18/2019 10:48 AM EST) CHOLESTEROL 163 0 - 200 mg/dL [facility] TRIGLYCERIDES 79 0 - 150 mg/dL [facility] HDL CHOLESTEROL 45 >40 mg/dL [facility] LDL CALCULATED 103(H) 0 - 100 mg/dL [facility] TC-HDLC RATIO 3.6 0 - 4.4 mg/dL [facility] Blood specimen (specimen) Blood / Unknown 07/18/2019 10:48 AM EST 07/18/2019 11:18 AM EST Narrative [facility] - 07/18/2019 4:27 PM EST [facility] [employer], [place] [address] Hat Former - Darlene Nance MD PT ID [id number] ORD# [id number] Chrystal George PA-C LAB - BLOOD DRAW Edited R esult - Final Performing Organization Address City/[facility] Co de Phone Number [address] [address], * COMPRE METAB PANEL (07/18/2019 10:48 AM EST) BUN 15 5 - 25 mg/dL [facility] CREAT 0.88 0.5 - 1.1 mg/dL [facility] GLOMERULAR FILTRATION RATE > 60 [facility] Comment: If patient is -Colombian, multiply result by 1.21 Chronic Kidney Disease: < 60 ml/min/1.73 square meters Kidney Failure: < 15 ml/min/1.73 square meters SODIUM 142 135 - 145 mEq/L [facility] POTASSIUM 4.2 3.5 - 5.5 mmol/L [facility] CHLORIDE 110 96 - 110 mmol/L [facility] CO2 28 21 - 32 mmol/L [facility] ANION GAP 4 3 - 11 [facility] CALCIUM 9.3 8.5 - 10.5 mg/dL [facility] ALBUMIN 3.4 3.2 - 5.0 G/dL [facility] SGPT 26 10 - 60 U/L [facility] GLUCOSE 92 70 - 100 mg/dL [facility] Comment:Reference range appl icable to fasting specimens only TOTAL PROTEIN 6.5 6.0 - 8.0 G/dL [facility] BILI, TOTAL 0.2 0.0 - 1.4 mg/dL [facility] SGOT 21 10 - 42 U/L [facility] ALK PHOS 84 42 - 121 U/L [facility] Blood specimen (specimen) Blood / Unknown 07/18/2019 10:48 AM EST 07/18/2019 11:18 AM EST Narrative [facility] - 07/18/2019 4:57 PM EST [employer], [place] [address] Hat Former - Darlene Nance MD PT ID [id number] ORD# [id number] Chrystal George PA-C LAB - BLOOD [place]RAW [place] [address], from Last 3 Months or Most Recently Relevant to Health Maintenance Insurance [place] [facility] PL[facility] Member Subscriber Plan / Payer (Ef fective 2020-Present) Name:Romana Brooks Relation to Subscriber:Self Name:Romana Brooks Payer ID:[id number] Group ID:Not on file Type:Medicaid Address: [facility] [address] [place] [address]
--- OUTSIDE RECORDS SUMMARY | 2024-09-15 11:42 | XMS_ITS | Encounter Summary ---
Author Organization [facility] Address [address] [place] [address] Care Team Providers Care [employer] Consultant Name Role Phone Unavailable Primary Care Provider Unavailabl e Reason for Visit * Reason Comments Jud Encounter Details Date Type Department Care Team ([facility] Contact Info) Description 08/25/2024 2:00 PM EST Office Visit [facility] [address] [place] [phone] Stephani Phan, DDS [address] [place] [address] Encounter for dental examination (Primary Dx) Social History Tobacco Use Types Packs/Day Years [...] Recorded In the last 10 days, have yo u been in contact with someone who was confirmed or suspected to have Coronavirus/COVID-19? No / Unsure 08/08/2024 1:12 PM EST documented as of this encounter Last Filed Vital Signs Vital Sign Reading Time Taken Comments Blood Pressure 146/91 08/25/2024 3:13 PM EST Pulse 68 08/25/2024 3:13 PM EST Temperature - - Respiratory Rate - - Oxygen Saturation - - Inhaled Oxygen Concentration - - Weight - - Height - - Body Mass Index - - documented in this encounter Progress Notes * Stephani Phan DDS - 08/25/2024 4:17 PM EST Jud Prep SUBJECTIVE: Romana Brooks, 49 year old female, presents alone for Porcelain Jud Prep on #5. Electrical Contractor: Yes: burmese Chief Complaint Patient presents with Jud OBJECTIVE: RMHx: Yes Vitals: Vitals: 08/25/24 1416 08/25/24 1513 BP: (!) 169/102 (!) 146/91 Pulse: 68 BP Site: Left Wrist Left Wrist BP Position: Sitting Sitting BP Cuff Size: Regular Adult Regular Adult Pain Score: 0 - No pain 0 - No pain ASSESSMENT: Dx: Z01.20 Encounter for dental examination (primary encounter diagnosis) Dx Details (Clinical Decision-Making): PLAN: Informed Consent/PARQ (Procedure, Alternatives, Risks, Questions): Patient confirms informed consent using PARQ. Pre-op impression for fabrication of provisional crown taken with Bite Registration Material. Jud Shade selected: A2. Pt verifies and agrees with shade selection. Pt is getting teeth whitening for the front teeth, Dental procedures in this visit [id number] - CROWN IN PROGRESS 5 (Completed) Service provider: Stephani Phan DDS Billing provider: Stephani Phan DDS Topical Anesthetic: 20% topical benzocaine Local Anesthetic: 1 carpule 2% lidocaine with 1:100k epi Injection administered: Infiltration Isolation used: Cotton roll. Excavation of N/A completed. Porcelain Jud Prep completed. No pulpalinvolvement. Build-up: No Build-up needed. Details: N/A. Verified margins and reduction/occlusal clearance. Placed retraction cord size 1 with epinephrine. Final impression taken using PVS Heavy Body and Light Body. Verified margins are captured adequately in final impression. Removed all retraction cord: Yes Fabricated provisional, checked margins, contacts & occlusion. Cemented with temporary cement and removed excess cement. Verified occlusion, contacts, and floss post-cementation. Pt approves esthetics and occlusion of provisional. Post-Op Information Given: verbal. Advised patient to call immediately if temporary breaks or comesoff. Avoid sticky, hard and crunchy foods. Referral: No orders of the following type(s) were placed in this encounter: Referral. Rx: No orders of the defined types were placed in this encounter. Behavior: Excellent DA: eric NV: Porcelain Jud Delivery on #5. documented in this encounter Miscellaneous Notes * Patient Instructions - Yohana Greene - 08/25/2024 2:55 PM EST If you are not able to keep your appointment please call 24-48 hours before your appointment to cancel or reschedule. documented in this encounter Plan of Treatment Upcoming Encounters Date Type Department Care Team (Late st Contact Info) Description 09/26/2024 1:00 PM EST Office Visit [address] [phone] Stephani Phan DDS [address] [place] [address] 10/17/2024 1:00 PM EDT Office Visit [address] [phone] Manjit Moncada DMD [address] [place] [address] 12/19/2024 11:00 AM EDT Office Visit [facility] [address] [place] [phone] Garfield Crocker, [facility] [address] [place] [address] documented as of this encounter Procedures Procedure Name Priority Date/Time Associated Diagnosis Comments 5 CROWN IN PROGRESS Routine 08/25/2024 2:00 PM ES T Encounter for dental examination documented in this encounter Visit Diagnoses Diagnosis Encounter for dental examination- Primary Dental examination documented in this encounter Additional Health Concerns Assessment Noted Time PHQ-9 Depression Total Score: 14 10/13/ 020 10:41 AM PDT documented as of this encounter
--- OUTSIDE RECORDS SUMMARY | 2024-09-15 11:42 | XMS_ITS | Encounter Summary ---
Author Organization [facility] Address [address] [place] [address] Care Team Providers Care Ct Scan Technologist Name Role Phone Unavailable Primary Care Provider Unavailabl e Encounter Details Date Type Department Care Team ([facility] st Contact Info) Description 01/08/2022 Dental Interim Note [facility] [address] [place] [phone] Stephani Phan DDS [address] [place] [address] Social History Tobacco Use Types Packs/Day Years Used Date Smoking Tobacco: Former Cigarettes Q uit: 09/06/2017 Smokeless Tobacco: Never Comments:since age 18 - 3/4 pack now; quit for 9 mon in 2018 Alcohol Use Standard Drinks/Week Comments No 0 (1 standard drink = 0.6 oz pur e alcohol) Social Connections Answer Date Recorded Social Connections and Isolation 0 03/23/2019 Financial Resource Strain Answer Date R ecorded Financial Resource Strain 0 2018 Stress Answer Date Recorded Stress 0 03/23/2019 Physical Activity Answer Date Recorded Physical Activity 0 03/23/2019 Food Insecurity Answer Date Recorded Food 0 03/23/2019 Transportation Needs Answer Date Record ed Transportation [...] suspected to have Coronavirus/COVID-19? No / Unsure 01/08/2022 9:50 AM EDT documented as of this encounter Plan of Treatment Upcoming Encounters Date Type Department Care Team (Late st Contact Info) Description 09/26/2024 1:00 PM EST Office Visit [address] [phone] Stephani Phan, DDS [address] [place] [address] 10/17/2024 1:00 PM EDT Office Visit [address] [phone] Manjit Moncada, DMD [address] [place] [address] 12/19/2024 11:00 AM EDT Office Visit [address] [phone] Garfield Crocker, RDH [address] [place] [address] documented as of this encounter Procedures Procedure Name Priority Date/Time Associated Diagnosis Comments 6 ROOT CANAL - WISDOM (NO BILLABLE) Routine 01/08/2022 12:00 AM EDT 11 DF(V) COMPOSITE - WISDOM (NON BILLABLE) Routine 01/08/2022 12:00 AM EDT 10 F(V) COMPOSITE - WISDOM (NON BILLABLE) Routine 01/08/2022 12:00 AM EDT 9 M COMPOSITE - WISDOM (NON BILLABLE) Routine 01/08/2022 12:00 AM EDT 8 MF(V) COMPOSITE - WISDOM (NON BILLABLE) Routine 01/08/2022 12:00 AM EDT 2 MO COMPOSITE - WISDOM (NON BILLABLE) Routine 01/08/2022 12:00 AM EDT 31,30,20,19,18,29 MANDIBULAR PARTIAL DENTURE - RESIN BASE Routine 01/08/2022 12:00 AM EDT 3,4,12,14 MAXILLARY PARTIAL DENTURE - RESIN BASE Routine 01/08/2022 12:00 AM EDT 6 POST AND CORE ADDITION TO CROWN INDIRECTLY HORTENSIA Routine 01/08/2022 12:00 AM EDT 6 CROWN - PORCELAIN FUSED TO LEIJA METAL Routine 01/08/2022 12:00 AM EDT documented in this encounter Visit Diagnoses Not on filedocumented in this encounter Additional Health Concerns Assessment Noted Time PHQ-9 Depression Total Score: 14 10/13/ 020 10:41 AM PDT documented as of this encounter
--- OUTSIDE RECORDS SUMMARY | 2024-09-15 11:42 | XMS_ITS | Encounter Summary ---
Author Organization [facility] Address [address] [place] [address] Care Team Providers Care Bag Checker Name Role Phone Unavailable Primary Care Provider Unavailabl e Reason for Visit * Reason Comments Dental Pain Pt says : I had imp lant both side ( LL and LR ) last week. My gums swollen and pain when eating Pt took OTC Tylenol as needed for pain. Encounter Details Date Type Department Care Team ([facility] st Contact Info) Description 09/12/2024 1:00 PM EST Office Visit [facility] [address] [place] [phone] Stacie Zaragoza [address] [place] [address] Pain, dental (Primary Dx) Social History Tobacco Use Types [...] file Not on file Not on file documented as of this encounter Last Filed Vital Signs Vital Sign Reading Time Taken Comments Blood Pressure 174/107 09/12/2024 1:36 PM EST Pulse 68 09/12/2024 1:36 PM EST Temperature - - Respiratory Rate - - Oxygen Saturation - - Inhaled Oxygen Concentration - - Weight - - Height - - Body Mass Index - - documented in this encounter Progress Notes * Stacie Zaragoza - 09/12/2024 1:35 PM EST Limited Exam Subjective Romana Brooks, 49 year old female, presents alone for limited exam of LR and LL. Record Center Specialist: Yes: as needed Chief Complaint Patient presents with Dental Pain Pt says : I had implant both side ( LL and LR ) last week. My gums swollen and pain when eating Pt took OTC Tylenol as needed for pain. Description of pain: gums pain where implants were placed Objective RMHx: Yes Vitals: informed High reading of BP . Pt says : Wrist BP device is not accurate . Pt feels fine. Vitals: 09/12/24 1336 BP: (!) 174/107 Pulse: 68 BP Site: Right Wrist BP Position: Sitting BP Cuff Size: Regular Adult Assessment Dx: K08.89 Pain, dental (primary encounter diagnosis) Dx Details (Clinical Decision-Making): PA #20 and #[address] Vang exam : X-ray : wnl Clinical exam : No sign of infection or swollen gums of these site of Implant. Healing process : WNL . Dr Vang informed post- procedure discomfort expectation . Home care given . Plan Informed Consent/PARQ (Procedure, Alternatives, Risks, Questions): Discussed limited exam findings and treatment needs, questions answered. Patient confirms informed consent, verbalizes understandingof limited exam findings and treatment plan. Pt informed today's exam was a limited exam, and comprehensive exam was not done today. Treatment needs may exist in other areas which were not examined today. Advised patient seek comprehensive care and return for evaluation of other areas as soon as possible. Dental procedures in this visit D0140 - LIMITED ORAL EVALUATION - PROBLEM FOCUSED (Completed) Service provider: Stacie Zaragoza Billing provider: Keisha Neal DMD D0220 - INTRAORAL - PERIAPICAL FIRST RADIOGRAPHIC IMAGE (Completed) Service provider: Stacie Zaragoza Billing provider: Keisha Neal DMD D0230 - INTRAORAL - PERIAPICAL EACH ADD RADIOGRAPH IMAGE (Completed) Service provider: Stacie Zaragoza Billing provider: Keisha Neal DMD Treatment Completed: Limited exam Referral: No orders of the following type(s) were placed in this encounter: Referral. Rx: Orders Placed This Encounter Medications ibuprofen 400 mg tablet Sig: Take 1 Tablet by mouth 4 (four) times daily as needed for pain for up to 5 days Dispense: 20 Tablet Refill: 0 Label in patient's preferred language:Burmese. amoxicillin (AMOXIL) 500 mg capsule Sig: Take 1 Capsule by mouth 3 (three) times daily for 7 days Dispense: 21 Capsule Refill: 0 Label in patient's preferred language:Burmese. Behavior: Compliant [place]: [place] with dr Jean-Pierre Zaragoza [facility]/ Dr Vang documented in this encounter Plan of Treatment Upcoming Encounters Date Type Department Care Team (Late st Contact Info) Description 09/26/2024 1:00 PM EST Office Visit [facility] [phone] [place] [phone] Stephani Phan DDS [address] [place] [address] 10/17/2024 1:00 PM EDT Office Visit [facility] [address] [place] [phone] Manjit Moncada DMD [address] [place] [address] 12/19/2024 11:00 AM EDT Office Visit [facility] [address] [place] [phone] Lizzette Garfield, [facility] [address] [place] [address] documented as of this encounter Procedures Procedure Name Priority Date/Time Associated Diagnosis Comments INTRAORAL - PERIAPICAL EACH ADD RADIOGRAPH IMAGE Routine 09/12/2024 1:00 PM EST Pain, dental INTRAORAL - PERIAPICAL FIRST RADIOGRAPHIC IMAGE Routine 09/12/2024 1:00 PM EST Pain, dental LIMITED ORAL EVALUATION - PROBLEM FOCUSED Routine 09/12/2024 1:00 PM EST Pain, dental documented in this encounter Visit Diagnoses Diagnosis Pain, dental- Primary Unspecified disorder of the teeth and supporting structures documented in this encounter Additional Health Concerns Assessment Noted Time PHQ-9 Depression Total Score: 14 020 10:41 AM PDT documented as of this encounter
== END 2024-09-15 11:42 | disposition home or self-care (01) ==
PROVIDERS: PCP Internal Medicine; Visit Provider Hospitalist
DX: R91.8 Other nonspecific abnormal finding of lung field (principal); F17.200 Nicotine dependence, unspecified, uncomplicated; J44.9 Chronic obstructive pulmonary disease, unspecified; R06.09 Other forms of dyspnea
CPT/HCPCS: 99214

== ENCOUNTER → 2024-09-15 10:57 | Outpatient (BNVA) | payer OTHER, SELFPAY | PROVIDERS: PCP Internal Medicine; Visit Provider Hospitalist | DX: R06.09 Other forms of dyspnea (principal); R91.8 Other nonspecific abnormal finding of lung field; J44.9 Chronic obstructive pulmonary disease, unspecified; F17.210 Nicotine dependence, cigarettes, uncomplicated | CPT/HCPCS: 99212 ==

== ENCOUNTER → 2024-11-08 10:47 | Outpatient (REF) | payer OTHER, SELFPAY ==
--- NOTE | 2024-11-08 10:50 | CA_ITS ---
Acquisition Time: 2024-11-08 11:09:57 Total Exercise Time: 00:08:40 Test Indications: Dyspnea Medications: SEE EMAR Protocol: ARJUN Max HR: 133 BPM 76% of Pred: 173 BPM Max BP: 140/80 mmHG Max Work Load: 10.1 METS Exercise stress test with exercise 8 mins 40 secs of Arjun Protocol, achieving 76% MPHR, requesting to stop due to hands discomfort and feeling fatigued, with reports of 3/10 burning chest pain at baseline that arash to 5/10 with exercise and SOB, without any arrythmias, with normotensive response to exercise. Without EKG changes meeting criteria for ischemia. In recovery, breathing returned to baseline and chest pain improved slowly to baseline. Echo images obtained by tech at rest and post peak exercise. Definity contrast utilized. Test reviewed with Dr. Woo. Referred By: Bogdan Hook Electronically Signed By: Alvin Minor
--- OUTSIDE RECORDS SUMMARY | 2024-11-08 13:03 | XMS_ITS | Clinical Summary ---
Author Organization [facility] Address [address] [place] [address] Care Team Providers Care Slot Floor Attendant Name Role Phone Unavailable Primary Care Provider [...] daily apply a thin ribbon on toothbrush. Comstock thoroughly once daily for two minutes, preferably at bedtime. After use expectorate. For best results, do not eat, drink, or rinse for 30 minutes. 51 g 1 2 Active chlorhexidine (PERIDEX) 0.12 % solutionIndicati ons:Encounter for dental examination Swish and spit 15 mL 2 (two) times daily for 14 days 420 mL 5 10/11/19 25 Active Problems Patient Care Coordination No te Formatting of this note migh t be different from the original. Problem Noted Date Diagnosed Date Fibromyalgia 08/30/2019 Overview (08/30/2019): As per ATC History of CT scan of abdomen 08/05/2019 Overview (08/05/2019): 07/17/19 [facility] - Abdominal CT - Revealed non [...] 03/29/19 - SURGERY: Retropubic midurethral sling with 3TIER Advantage system, cystourethroscopy - done at [facility] by Melissa Durham DO. Indication: WENDI Diabetes ([facility]) 04/28/2019 Overview (04/28/2019): Per 02/26/19, [facility] ED Centrilobular emphysema ([facility]) 01/20/2019 Overview (08/04/2019): Scheduled for Pulmonology apt [...] RTC in 7 weeks. Failed PT at [facility] 09/04, went to ER and missed appt. 09/08. DCed due to no symptom improvement. - 09/03/18, [facility] pain management: A/P: Dx: lumbar radiculitis Facet arthropathy. Pt f/u after her LESI which gave her very short lived benefit. she doesn't want any further injections. we recommend she should go back to her PCP to explore further options,medications etc as we don't do medication management in our practice. Morbid obesity with body mas s index of 45.0-49.9 in adult ([facility]) 11/06/2017 Overview (01/28/2018): Overview: Bariatric Surgery Program Surgeon: Initial visit date 07/02/17 [facility] Psychiatry clearance: Provider and date PCP clearance: [facility]17 [facility]: Labs: Needs to quit smoking. Support [...] RTC in 7 weeks. Failed PT at [facility] 09/04, went to ER and missed appt. 09/08. DCed due to no symptom improvement. - 09/03/18, [facility] pain management: A/P: Dx: lumbar radiculitis Facet [...] Abdominal pain 10/16/2014 Lupus (systemic lupus erythematosus) ([facility]) Overview (09/14/2019): Per 07/2019 [facility]-On plaquenil 200mg tid Per 01/17/19, [facility]th[facility] Treatment Office Notes, Dr. Lama: - Polyarthralgias, rash, alopecia, JOAQUÍN 1:40 ([facility]), 1:800 ([facility]), Low C3 and C4. Due for eye exam, last 04/25/15. Computer Lab Aide: Melissa Hair MD - Lupus under control, continue with hydroxyloroquine ?mg. + diffuse non-arthritic lupus pain, seems most c/w with fibromyalgia (chronic neurological non-arthritic pain). Discussed with her PCP Tx options for this diffuse pain. Possible referral to a pain managment center if PCP feels it is appropriate. F/u 6 months. Bipolar 1 disorder, depressed ([facility]) Overview (04/28/2019): Per 12/24/18, [facility] Urgent Care: Depression - therapist and psych at [facility] Anxiety Resolved Problems Problem Noted Date Diagnosed Date Resolved Date Acute cholecystitis 12/21/2014 04/28/20 Overview (12/21/2014): Admit [facility] 12/07/14 Encounters Date Type Department Care Team Description 11/07/2024 3:00 PM EDT Office Visit [address] [phone] Stephani Phan DDS 10/17/2024 11:00 AM EDT Office Visit [facility] [address] [place] [phone] Stephani Phan DDS 09/26/2024 1:00 PM EST Office Visit [address] [address] Stephani Phan DDS Encounter for dental examination (Primary Dx); Caries of enamel (incipient) 09/12/2024 1:00 PM EST Office Visit [facility] Dental [address] [place] [phone] Stacie Zaragoza Pain, dental (Primary Dx) 09/05/2024 2:00 PM EST Office Visit [address] [phone] Manjit Moncada DMD 08/25/2024 2:00 PM EST Office Visit [facility] [address] [place] [phone] Stephani Phan DDS Encounter for dental examination (Primary Dx) from Last 3 Months Immunizations Immunization Administration Dates Next Due Flu, Preservative Free [...] Sign Reading Time Taken Comments Blood Pressure 158/98 11/07/2024 3:17 PM EDT Pulse 73 11/07/2024 3:17 PM EDT Temperature 36.8 ??C (98.2 ??F) 10/14/2019 10:39 [...] Care Team (Late st Contact Info) Description 12/05/2024 1:00 PM EDT Office Visit [facility] [address] [place] [address] Stephani Phan, DDS [address] [place] [address] 12/19/2024 11:20 AM EDT Office Visit [facility] [address] [place] [phone] Garfield Crocker, [facility] [address] [place] [address] Health Maintenance Due Date Last Done Comments Anxiety Screening 1977 Diabetes Foot Exam 1977 HPV Screening 1977 Pap + HPV 1977 Urine Albumin Creatinine Rat io Screening 1977 Retinopathy Screening 1990 HIV Screening 1992 [...] of 2 - PCV) 04/25/2023 , 07/28/2015 [id number] (4 - season) 2024 07/09/2021, 01/07/2021, 12/17/2020 Alcohol and Drug Screen 08/03/2024 10/14/19 20, 02/15/2019, 01/28/2018, Additional history exists Depression Annual Screen 08/03/2024 020, 01/28/2018 (Managed by Outside Provider), 11/29/2015, Additional history exists Dental Perio Charting 12/15/2024 12/14/2023 , 06/11/2023, 06/12/2022 Dental Prophy 12/20/2024 06/20/2024, 12/01, 06/11/2023, Additional history exists Dental BW 06/22/2025 06/20/2024, 1104/2023, 12/09/2022, Additional history exists Dental Examination 06/22/2025 06/20/2024, 0 12/14/2023, 06/11/2023, Additional history exists Imm-DTaP/Tdap/Td (2 - Td or Tdap) 09/03/2025 016, 10/25/2012 Hypertension Screening (#1) 11/07/2025 10/16/2014 Tobacco Screening 11/07/2025 11/07/2024, , 02/22/2015 Colonoscopy 01/21/2027 01/21/2017 Colorectal Cancer Screening 01/21/2027 Dental FMX/Pano 12/15/2028 12/14/2023, 06/12/2022 Hepatitis C Screening Completed 09/09/2023, 019 Imm-Influenza Completed 05/20/2024, 05/04, 05/16/2022, Additional history exists Cervical Ablation/Cold-Knife Conization Discontinued Cervical Cryotherapy Discontinued Colposcopy Discontinued Endometrial Biopsy Discontinued Excision/Leep Discontinued HPV Genotyping Discontinued Imm-Hepatitis B Discontinued Vaginal Pap Discontinued Vulvoscopy Discontinued Procedures Procedure Name Priority Date/Time Associated Diagnosis Comments 5 CROWN - PORCELAIN/CERAMIC Routine 09/26/2024 1:00 PM EST Caries of enamel (incipient) INTRAORAL - PERIAPICAL EACH ADD RADIOGRAPH IMAGE Routine 09/12/2024 1:00 PM EST Pain, dental INTRAORAL - PERIAPICAL FIRST RADIOGRAPHIC IMAGE Routine 09/12/2024 1:00 PM EST Pain, dental LIMITED ORAL EVALUATION - PROBLEM FOCUSED Routine 09/12/2024 1:00 PM EST Pain, dental 5 CROWN IN PROGRESS Routine 08/25/2024 2 :00 PM EST Encounter for dental examination BITEWINGS - FOUR RADIOGRAPHIC IMAGES Routine 06/20/2024 10:20 AM EST Fractured dental baptism with loss of material Encounter for dental examination and cleaning with abnormal findings PROPHYLAXIS - ADULT Routine 06/20/2024 1 0:20 AM EST Encounter for dental examination and cleaning with abnormal findings PERIODIC ORAL EVALUATION ESTABLISHED PATIENT Routine 06/20/2024 [...] HEPATITIS A,B,C PANEL (07/18/2019 10:48 AM EST) HEPATITIS B SURFACE ANTIBODY POSITIVE(A) NEGATIVE [facility] HEPATITIS B SURFACE ANTIGEN NEGATIVE NEGATIVE [facility] Comment: Over the counter supplements containing high doses of biotin may interfere with this assay. ??If interference is suspected, patients shoud be retested after refraining from biotin supplements for 72 hours. HEPATITIS C VIRUS DIAGNOSTIC NEGATIVE NEGATIVE [facility] HEPATITIS B CORE ANTIBODY NEGATIVE NEGATIVE [facility] HEPATITIS A ANTIBODY TOTAL NEGATIVE NEGATIVE [facility] Comment: Over the counter supplements containing high doses of biotin may interfere with this assay. ??If interference is suspected, patients shoud be retested after refraining from biotin supplements for 72 hours. Blood specimen (specimen) Blood / Unknown 07/18/2019 10:48 AM EST 07/18/2019 11:18 AM EST Narrative [facility] - 07/18/2019 4:46 PM EST [employer], [place] [address] Apron Trimmer - Darlene Nance MD PT ID [id number] ORD# [id number] Chrystal George PA-C LAB - BLOOD DRAW Edited R esult - Final Performing Organization Address [facility] [place] [address], * HEMOGLOBIN, GLYCOSYLATED (A1C) (07/18/2019 10:48 AM EST) GLYCATED HEMOGLOBIN A1C 5.3 <6.5 % [facility] ESTIMATED AVERAGE GLUCOSE 105 mg/dL [facility] Blood specimen (specimen) Blood / Unknown 07/18/2019 10:48 AM EST 07/18/2019 11:18 AM EST Narrative [place] [facility] [place] - 07/18/2019 6:23 PM EST [employer], [place] [address] Apron Trimmer - Darlene Nance MD PT ID [id number] ORD# [id number] Chrystal George PA-C LAB - BLOOD DRAW Final Re sult Performing Organization Address [facility]/[place] [address], * (ABNORMAL) LIPID PANEL (07/18/2019 10:48 AM EST) CHOLESTEROL 163 0 - 200 mg/dL [facility] TRIGLYCERIDES 79 0 - 150 mg/dL [facility] HDL CHOLESTEROL 45 >40 mg/dL [facility] LDL CALCULATED 103(H) 0 - 100 mg/dL [facility] TC-HDLC RATIO 3.6 0 - 4.4 mg/dL [facility] Blood specimen (specimen) Blood / Unknown 07/18/2019 10:48 AM EST 07/18/2019 11:18 AM EST Narrative [facility] - 07/18/2019 4:27 PM EST [facility], [place] [address] Apron Trimmer - Darlene Nance MD PT ID [id number] ORD# [id number] Chrystal George PA-C LAB - BLOOD DRAW [place] [address], * COMPRE METAB PANEL (07/18/2019 10:48 AM EST) BUN 15 5 - 25 mg/dL [facility] CREAT 0.88 0.5 - 1.1 mg/dL [facility] GLOMERULAR FILTRATION RATE > 60 [facility] Comment: If patient is -Ethiopian, multiply result by 1.21 Chronic Kidney Disease: < 60 ml/min/1.73 square meters Kidney Failure: < 15 ml/min/1.73 square meters SODIUM 142 135 - 145 mEq/L [facility] POTASSIUM 4.2 3.5 - 5.5 mmol/L [facility] CHLORIDE 110 96 - 110 mmol/L [facility] CO2 28 21 - 32 mmol/L [facility] ANION GAP 4 3 - 11 [facility] CALCIUM 9.3 8.5 - 10.5 mg/dL [facility] ALBUMIN 3.4 3.2 - 5.0 G/dL [facility] SGPT 26 10 - 60 U/L [facility] GLUCOSE 92 70 - 100 mg/dL [facility] Comment:Reference range appl icable to fasting specimens only TOTAL PROTEIN 6.5 6.0 - 8.0 G/dL [facility] BILI, TOTAL 0.2 0.0 - 1.4 mg/dL [facility] SGOT 21 10 - 42 U/L [facility] ALK PHOS 84 42 - 121 U/L [facility] Blood specimen (specimen) Blood / Unknown 07/18/2019 10:48 AM EST 07/18/2019 11:18 AM EST Narrative [facility] - 07/18/2019 4:57 PM EST [employer], [place] [address] Apron Trimmer - Darlene Nance MD PT ID [id number] ORD# [id number] Chrystal George PA-C LAB - BLOOD DRAW Edited R esult - Final [facility] [address] [place] [address], from Last 3 Months or Most Recently Relevant to Health Maintenance Insurance [place] MEDICAID [facility] Member Subscriber Plan / Payer (Ef fective 2020-Present) Name:Romana Brooks Relation to Subscriber:Self Name:Romana Brooks Payer ID:[id number] Group ID:Not on file Type:Medicaid Address: [facility] [address] [place] [address]
--- OUTSIDE RECORDS SUMMARY | 2024-11-08 13:03 | XMS_ITS | Encounter Summary ---
Author Organization [facility] Address [address] [place] [address] Care Team Providers Care Cone Chocolate Dipper Name Role Phone Unavailable Primary Care Provider Unavailabl e Encounter Details Date Type Department Care Team ([facility] st Contact Info) Description 01/08/2022 Dental Interim Note [facility] [address] [place] [phone] Stephani Phan DDS [address] [place] [address] Social History Tobacco Use Types Packs/Day Years [...] Description 12/05/2024 1:00 PM EDT Office Visit [facility] [address] [place] [phone] Stephani Phan DDS [address] [place] [address] 12/19/2024 11:20 AM EDT Office Visit [facility] [address] [place] [phone] Garfield Crocker [facility] [address] [place] [address] documented as of this encounter Procedures Procedure [...]
--- OUTSIDE RECORDS SUMMARY | 2024-11-08 13:03 | XMS_ITS | Clinical Summary ---
Author Organization [facility] it Address [address] [place] [address] Care Team Providers Care Gaming Host Name Role Phone Emelia Lewis NP Primary Care Provider Unavailabl e Surgical History Surgery Date Site/Laterality Comments COLONOSCOPY PROCEDURE: HISTORICAL COLONOSCOPY Medical History Medical History Date Comments Chronic diarrhea 03/11/2017 DX:Chronic diar vangie Dyspepsia 12/18/2017 DX:Dyspepsia Hematochezia 12/30/2016 DX:Hematochezia Morbid obesity with BMI of 4 5.0-49.9, adult (CMS/HCC) 11/06/2017 DX:Morbid obesity with BMI o f 45.0-49.9, adult ([facility]); COMMENT: Bariatric Surgery Program Surgeon: Initial visit date 07/02/17 [facility] Psychiatry clearance: Provider and date [facility]: [facility]: Labs: Needs to quit smoking. Support [...] [employer] of Health Screening 07/12/2022 Influenza Vaccine (Season Ended) 2025 HIB Vaccines Aged Out No longer eligi [...] age to complete this topic Meningococcal B Vaccine Aged Out No l onger eligible based on patient's age to complete this topic RSV Immunization Patients Un lara 20 months Aged Out No longer eligible b ased on patient's age to complete this topic Varicella Vaccines Aged Out No longer eligible based on patient's age to complete this topic Care Teams Gaming Host Relationship Specialty Start Date End Date Emelia Lewis NP Need Updated Address PCP - General 10/23/20
--- OUTSIDE RECORDS SUMMARY | 2024-11-08 13:04 | XMS_ITS | Encounter Summary ---
Author Organization [facility] Address [address] [place] [address] Care Team Providers Care Manager Of Maintenance Name Role Phone Unavailable Primary Care Provider Unavailabl e Reason for Visit * Reason Comments Oral Surgery Implant impression Encounter Details Date Type Department Care Team ([facility] [address] Contact Info) Description 11/07/2024 3:00 PM EDT Office Visit [facility] [address] [place] [phone] Stephani Phan, [facility] [address] [place] [address] Social History Tobacco Use Types Packs/Day Years [...] Pulse 73 11/07/2024 3:17 PM EDT Temperature - - Respiratory Rate - - Oxygen Saturation - - Inhaled Oxygen Concentration - - Weight - - Height - - Body Mass Index - - documented in this encounter Miscellaneous Notes * Patient Instructions - Noa Alfaro - 11/07/2024 4:19 PM EDT If you are not able to keep your appointment please call 24-48 hours before your appointment to cancel or reschedule. documented in this encounter Plan of Treatment Upcoming Encounters Date Type Department Care Team (Late st Contact Info) Description 12/05/2024 1:00 PM EDT Office Visit [facility] [address] [place] [address] Stephani Phan DDS [address] [place] [address] 12/19/2024 11:20 AM EDT Office Visit [facility] [address] [place] [address] Garfield Crocker [facility] [address] [place] [address] documented as of this encounter Visit Diagnoses Not on filedocumented in this encounter Additional Health Concerns Assessment Noted Time PHQ-9 Depression Total Score: 14 10/13/2 020 10:41 AM PDT documented as of this encounter
== END ==
LOC: HO.CARD 10:47
PROVIDERS: PCP Internal Medicine; Visit Provider Hospitalist
DX: R06.09 Other forms of dyspnea (principal)
CPT/HCPCS: 93350; Q9957

== ENCOUNTER → 2024-11-08 10:50 | Outpatient (BNV) | payer OTHER, SELFPAY | PROVIDERS: PCP Internal Medicine | DX: R07.9 Chest pain, unspecified (principal); R06.02 Shortness of breath | CPT/HCPCS: 93016; 93018; 93350; 93352 ==

== ENCOUNTER 2025-03-15 09:48 | Outpatient (AMB) | payer OTHER, SELFPAY ==
--- NOTE | 2025-03-15 09:50 | MHC.OFFVIS ---
Vital Signs 03/15/25 09:51 Height 5 ft 2 in Weight 221 lb 9.033 oz BMI 40.5 BP 156/80 H Blood Pressure Location Lt brachial Position Sitting Pulse 60 Pulse Source Pulse Oximeter Pulse Oximetry (%) 100 Oxygen Delivery Method Room Air Intake Visit Reasons: Dyspnea Accompanied by: Self / Same As Patient Allergies No Known Allergies Allergy (Mild, Verified 03/15/25 09:52) JACQUELINE MESA Comments Details: The patient is a 49-year-old woman with a known history of asthma, tobacco dependency and pulmonary nodules. The patient states that she has been having worsening shortness of breath with activity. Ngmd-qz-rfsimqch severity. She does have inhaler, Symbicort. However, has resulted in irritation to her mouth and she does have a hard time tolerating it. She does not use a spacer with it. Currently she is in the 160 dose which is the higher dose. We talked about the importance of using a spacer and also hopefully with minimizing the inhaled steroids will could have her tolerated better. But his symptoms she should be using on a daily basis. I am hopeful that we can have her tolerated better. the patient did have a CT scan of the chest done in [place] with used to be very even last in February 2020 approximately where she had multiple pulmonary nodules largest 1 measuring up to 6 mm in size. In addition to that the patient already has evidence of emphysema. the patient understands that she needs to quit smoking. She does have a lot of family support. The patient is not ready at this time since she is going to significant amount of stress. However, she will come up with a quit date. 10/24/2021 the patient is here for a pulmonary follow-up visit. 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 she has seen multiple pain specialist for without any significant improvement. Currently she is on Lyrica. It does help her some but still having some discomfort. Patient still on a small dose and we can increase it at nighttime to help her with her discomfort at night. and the patient denies any vesicles although she has had chickenpox therefore post herpetic neuralgia cannot be ruled out either. She did undergo pulmonary function studies which I personally reviewed with her. Appears that she does have relatively normal PFTs except for a low normal total lung capacity due to her surgery and a mild diffusion impairment also due to her surgery. after the biopsy she was told that she did not have cancer although was unclear exactly what the biopsy showed. Therefore I will have her sign a release of medical records to get the pathology from [facility]. The patient continues on her Symbicort and also continues on the albuterol. Again we talked about smoking cessation. The patient is very stressed but she does want to quit. as a personally reviewed her CT scan of the chest demonstrating the postoperative changes. She also has pulmonary nodules. She also has the beginnings of emphysema. 04/25/2022 The patient is here for a pulmonary follow-up visit. Overall the patient is doing well from a respiratory status. She continues uses Symbicort. She also has a rescue inhaler which she does not require. Unfortunate she continues to smoke cigarettes. She has been motivated to quitting but she has been very stressed that results in more smoking. We did talk about different nicotine therapies including the Nicotrol inhaler. I will send that to the pharmacy so she can start using it with hopes to switching over to the Nicotrol inhaler and subsequently be able to wean off from that. In addition to that we did review her again her CT scan of the chest demonstrating some postoperative changes. The patient needs to have a repeat CT scan to follow up with those changes. Patient also has underlying non calcified pulmonary nodules that do need follow-up. The patient still having significant back pain. She has been on Lyrica. She is working with her pain specialist. I believe she is going to be referred to a different pain specialist which is helpful. In the meantime I did recommend she talk to her primary care or pain specialist for further adjustments and her Lyrica medication. 10/24/2022 the patient is here for pulmonary follow-up visit. The patient continues to be about the same. She continues use her respiratory medication. She is struggling with smoking. She could not get the Nicotrol inhaler Because it was sent to the wrong pharmacy. I will rx chantix. She will monitor for any mood changes. We did review her last CT scan of the chest on August 2022 demonstrating stable pulmonary nodules. Due to high risk of lung cancer will go ahead and repeat her CT scan in a year's time. In the meantime on examination the patient does have a murmur best heard at the left sternal border. She did undergo an ECHO demonstrating mild hypertrophy and a dilated LA. Trivial valvular regurgitation. 06/19/2023 the patient is here for a pulmonary follow-up visit. Mild in severity. Also complains of a cough. Typically congested in the morning. Unfortunately she continues to smoke cigarettes. She was very motivated to start Chantix and quit but then her father and has been dealing with significant anxiety and stress. The patient does promise her that that she will quit smoking. She will go ahead and try the Chantix. The patient understands that if she does go a Chantix she needs to monitor for any depressive symptoms. She still has a prescription. In the meantime her last CT scan was back in August 2022 with pulmonary nodules. Which have been stable. The patient is high risk for cancer therefore will repeat the CT scan August 2023. will follow-up with her after that to review. Will also optimize respiratory therapy based switching her Spiriva to Stiolto. I am hoping that the combination long-acting bronchodilators will provide with additional improvement in her respiratory symptoms. 09/11/2023 the patient is here for a pulmonary follow-up visit. She is very excited. She was able to quit smoking. She is avoid cigarettes now for about 40 days. She has been taking the Chantix and seems to be working. She has not happy about the weight gain but she is trying to stay active in making dietary changes. The patient did have a CT scan of the chest that was personally by me that she had back in August 2023 demonstrating stable pulmonary nodules and also stable cyst. She has multiple cysts on her lungs. She does continue to use her respiratory therapy. She will continue the Chantix for another 2-3 months. I will make sure she has refills. The patient will follow-up in 10-12 months. If she has any worsening symptoms prior to that she will call for an earlier assessment. 09/15/2024 the patient is here for a pulmonary follow-up visit. Overall the patient has been doing fairly well. She had been exercising regularly although recently she stopped going to the gym. She does have dyspnea on exertion. Specially going up a flight of stairs. She gets very winded. Moderate severity. This is concerning to her. She did have CT scan of the chest which I personally reviewed and she does have cystic changes and nodules which are stable. No significant changes. She also quit smoking back in the fall of 2023 which is also reassuring. She is taking her respiratory medications as prescribed. The patient did have a brief walking oximetry with me in the office. She did have significant tachycardia when she went up 1 flight of stairs. Up to 120 beats per minute. She was visibly winded. Will go ahead and request a stress echo to make sure that it cardiac status is stable. 03/15/2025 the patient is here for pulmonary follow-up visit. Overall the patient has been doing well. She is still refer me from smoking which is reassuring. She did have some stress and she did go back on Chantix to try to minimize her urge which is helpful. In the meantime she continues use her inhalers. She has multiple inhalers and still having shortness of breath and cough chest congestion and chest tightness. Will go ahead and optimize her therapy by switching her Stiolto to Trelegy. She also been using Symbicort at times and I explained to her that is not good to take additional long-acting medication together. Therefore the use of Trelegy will help simplify her regimen to make sure she is getting at the adequate medications without over medicating. She does have some chest congestion. Will go ahead and treat her for some bronchitis at this time. Also to note the patient has been hypertensive. She has been on multiple blood pressure medications. Blood pressure today systolic in the 160s. She does have some lower extremity edema. We did talk about low-sodium diet and try to try to make changes in her lifestyle. In the meantime I gave her 3 days of Lasix to try to improve her volume status. [facility] Medical History (Updated 09/15/24 @ 21:05 by Bogadn Hook MD) Dyspnea Murmur Asthma Tobacco dependence Asthma-COPD overlap syndrome Pulmonary nodules Fibromyalgia Spondylolisthesis COPD (chronic obstructive pulmonary disease) Hx of gastritis Hx of esophagitis Sacroiliitis Spondylosis of lumbar region without myelopathy or radiculopathy Surgical History History of foot surgery (~2006) History of cholecystectomy (~2014) History of lung surgery (~2014) Social History Alcohol intake: never Patient Tobacco Use Status: Former Tobacco user Tobacco use type: Cigarette Cigarette Packs Per Day: 1 Cigarettes Per Day: 5 Years Smoked: 12 years Substance Use Type: Marijuana Review of Systems Const Denies night sweats ENT Denies change in voice, Denies lip swelling, Denies mouth pain, Reports nasal congestion, Reports nasal discharge and Denies tongue swelling Card Denies chest pain and Reports dyspnea on exertion Resp Denies chest congestion, Reports cough and Reports dyspnea on exertion GI Denies abdominal pain Musc Reports back pain, Reports arthralgias and Reports joint swelling Neuro Denies Neuro-related abnormal movements Psych Denies no additional complaints Talha/Lymph Denies easy bleeding and Denies lymphadenopathy Aller/Immun Denies lip swelling and Denies tongue swelling Physical Exam Vital Signs: Last Vital Signs Pulse 60 03/15/25 09:51 BP 156/80 H 03/15/25 09:51 Pulse Ox 100 03/15/25 09:51 Oxygen Delivery Method Room Air 03/15/25 09:51 BMI result Body Mass Index 40.5 Const General: alert Neck Neck: Yes normal visual inspection, Yes full ROM and Yes no lymphadenopathy Chest Chest palpation & inspection: normal inspection of the chest Resp Effort & Inspection: normal respiratory effort Auscultation: no rhonchi, no wheezes and diminished lung sounds Cardio Rate: regular rate Rhythm: regular rhythm Heart sounds: S1 normal heart sound present and S2 normal heart sound present GI Palpation (GI): Soft to palpation and nontender Auscultation: normal bowel sounds Skin General skin exam: rashes and/or lesions noted Assessment & Plan Assessment & Plan (1) Pulmonary nodules: Code(s): R91.8 - Other nonspecific abnormal finding of lung field Category: Medical (2) Tobacco dependence: Code(s): F17.200 - Nicotine dependence, unspecified, uncomplicated Category: Medical (3) Asthma-COPD overlap syndrome: Code(s): J44.9 - Chronic obstructive pulmonary disease, unspecified Category: Medical (4) Dyspnea: Code(s): R06.00 - Dyspnea, unspecified Category: Medical Qualifiers: Dyspnea type: dyspnea on exertion Qualified Code(s): R06.09 - Other forms of dyspnea Plan stop Stiolto Start Trelegy 200 daily zyrtec tobacco cessation: quit, back on chantix for cravings short-acting beta agonist as needed stress ECHO normal Lasix x 3 days Low Na diet F/U with PCP re: elevated uncontrolled BP follow-up 12 months Medications: New furosemide (Lasix) 20 mg PO DAILY 3 tabs 0RF 3 days icdwqbglqbt-qqpsuchie-aiidhswe 200-62.5-25 mcg (Trelegy Ellipta) 1 inh inhalation DAILY 60 ea 12RF 30 days azithromycin 500 mg PO DAILY 5 tabs 0RF 5 days Coding Level of Care Code Est Pt Level 4 (21749) Complex EM visit Add On G2211 Diagnoses Pulmonary nodules R91.8 Tobacco dependence F17.200 Asthma-COPD overlap syndrome J44.9 Dyspnea on exertion R06.09 Dyspnea type: dyspnea on exertion Time Spent (min) 17
[2025-03-15 09:51] VITALS: BP 156/80; PULSE 60; O2SAT 100; BMI 40.5
--- OUTSIDE RECORDS SUMMARY | 2025-03-15 10:23 | XMS_ITS | Clinical Summary ---
Author Organization [facility] Address [address] [place] [id number] Phone Care Team Providers Care Beverage Steward Name Role Phone Jeanette Smith MD Primary Care Provider [phone] Allergies No known active allergies Medications VENTOLIN HFA 90 mcg/actuation inhaler INHALE 2PUFFS EVERY 6 HOURS NEEDED FOR SHORTNESS OF BREATH OR WHEEZING 3 Active buPROPion (WELLBUTRIN XL) 300 MG ER 24 hr tablet Take 1 tablet by mouth every morning. 3 Active cetirizine (ZYRTEC) 10 MG tablet Take 1 tablet by mouth every morning. 3 Active clonazePAM (KLONOPIN) 0.5 MG tablet Take 1 tablet by mouth 2 (two) times a day. 3 Active DULoxetine (CYMBALTA) 30 MG capsule Take 30 mg by mouth every morning. 3 Active lisinopril (PRINIVIL,ZEST RIL) 10 MG tablet Take 1 tablet by mouth every morning. 3 Active metoprolol succinate (TOPROL-XL) 50 MG 24 hr tablet Take 1 tablet by mouth every morning. 3 Active OXcarbazepine (TRILEPTAL) 600 MG tablet DIRECTED TAKE ONE TABLET IN THE MORNING AND ONE TABLET AND HALF AT NIGHT. 3 Active pantoprazole (PROTONIX) 40 MG tablet Take 1 tablet by mouth every morning. 3 Active SPIRIVA RESPIMAT 2.5 mcg/actuation mist for inhalation Inhale 2 puffs into the lungs daily. 3 Active zolpidem (AMBIEN) 5 MG tablet Take 1 tablet by mouth nightly at bedtime as needed. 3 Active varenicline (CHANTIX CORBIN) 0.5 mg (11)- 1 mg (42) tablet Take by mouth daily. 3 Active amLODIPine (NORVASC) 2.5 MG tablet Take 2.5 mg by mouth daily. Active estradioL (VIVELLE-DOT) 0.05 mg/24 hr APPLY 1 PATCH TWICE A WEEK TRANSDERMALLY FOR 84 DAYS. 5 Active estradioL (ESTRACE) 0.01 % (0.1 mg/gram) vaginal cream INSERT 0.5 G TWICE A WEEK BY VAGINAL ROUTE AT BEDTIME FOR 90 DAYS. 5 Active lisinopril (PRINIVIL,ZEST RIL) 40 MG tablet Take 40 mg by mouth daily. Active celecoxib (CELEBREX) 200 MG capsule Take 1 capsule (200 mg total) by mouth 2 (two) times a day. 180 capsule 1 5 Active hydroxychloroq uine (PLAQUENIL) 200 mg tabletIndicati ons:Rheumatoid arthritis involving multiple sites with positive rheumatoid factor Take 1 tablet (200 mg total) by mouth 2 (two) times a day. 180 tablet 1 5 Active folic acid (FOLVITE) 1 MG tabletIndicati ons:Rheumatoid arthritis involving multiple sites with positive rheumatoid factor Take 1 tablet (1,000 mcg total) by mouth every morning. 90 tablet 1 5 Active methotrexate 2.5 MG Oral tabletIndicati ons:Rheumatoid arthritis involving multiple sites with positive rheumatoid factor Take 4 tablets (10 mg total) by mouth every 7 days. 52 tablet 5 Active Active Problems Problem Noted Date Diagnosed Date Rheumatoid arthritis involvi ng multiple sites with positive rheumatoid factor 05/22/2023 Assessment & Plan (01/11/2024 3:21 PM EDT): Seropositive rheumatoid arthritis currently stable on Plaquenil 2 tabs daily along with methotrexate 4 tablets and daily folic acid. She has no active synovitis. Will send her for some labs today. Assessment & Plan (05/22/2023 11:51 AM EDT): Seropositive rheumatoid arthritis fairly well controlled on methotrexate 4 tablets weekly daily folic acid and Plaquenil 2 tabs daily. She will call and schedule her Plaquenil eye exam. She has no active synovitis or swelling. Sent her for some labs today including hep B, C and QuantiFERON gold. Primary osteoarthritis involving multiple joints 05/22/2023 Assessment & Plan (01/11/2024 3:22 PM EDT): Osteoarthritis in multiple joints most bothersome in the knees. She is already on Celebrex twice a day. Assessment & Plan (05/22/2023 11:52 AM EDT): Degenerative osteoarthritis in multiple areas exacerbated by excess weight. Advised weight loss. Continue with Celebrex 2 times daily as needed. Primary osteoarthritis of left knee 05/22/2023 Assessment & Plan (05/22/2023 11:53 AM EDT): Flare of osteoarthritis in the left knee with puffiness and medial joint line pain but without effusion. Injected the left knee with triamcinolone. Fibromyalgia 05/22/2023 Assessment & Plan (01/11/2024 3:23 PM EDT): Much of her pain and discomfort is from fibromyalgia. She sees psychiatry who treats her with duloxetine. Assessment & Plan (05/22/2023 11:54 AM EDT): Much of her overall pain is secondary to fibromyalgia. She follows with psychiatry and is on treatment with Lyrica and duloxetine. Advised her to try and get daily physical activity which has been shown to reduce the pain from fibromyalgia. Systemic lupus erythematosus 05/22/2023 Assessment & Plan (01/11/2024 3:23 PM EDT): SLE appears stable with no active symptoms. She should avoid prolonged sun exposure. Assessment & Plan (05/22/2023 11:54 AM EDT): She has a positive JOAQUÍN and previous episodes of a sun sensitive rash. She has no active lupus symptoms today. Advised her to avoid prolonged sun exposure. Encounters Date Type Department Care Team Description 02/13/2025 4:00 PM EDT Office Visit [facility] Rheumatology [address] [place] [address] [place] [address] Delaney Handy MD Rheumatoid arthritis involving multiple sites with positive rheumatoid factor (Primary Dx); Encounter for monitoring of methotrexate therapy; Primary osteoarthritis involving multiple joints; Fibromyalgia; High risk medications (not anticoagulants) long-term use; Immunosuppression due to drug therapy 02/13/2025 Telephone [facility] Rheumatology [address] [place] [address] Delaney Handy MD Appointment from Last 3 Months Family History Medical History Relation Comments Lung cancer Father Stroke Father Arthritis Mother Diabetes Mother Hypertension Mother Relation Status Comments Father Mother Alive Social History Tobacco Use Types Packs/Day Years Used Date Smoking Tobacco: Former Cigarettes Smokeless Tobacco: Never Tobacco Cessation:Counseling Given: Not Answered Alcohol Use Standard Drinks/Week Comments Not Currently 0 (1 standard drink = 0.6 oz pur e alcohol) Education Answer Date Recorded Are you interested in more education? Not on julian e 03/24/2023 Are you concerned about learning? Not on file 03/24/2023 No 03/24/2023 No 03/24/2023 Digital Access Answer Date Recorded No 03/24/2023 No 03/24/2023 Reliable internet access at home? Not on file 03/24/2023 Device with a working camera? Not on file Comments Unknown Sex and Gender Information Value Date Recorded Sex Assigned at Female 04/14/2023 10:25 PM EDT Legal Sex Female 12:48 PM EDT Gender Identity Female 04/14/2023 10:25 PM EDT Sexual Orientation Straight 04/14/2023 10 :25 PM EDT Last Filed Vital Signs Vital Sign Reading Time Taken Comments Blood Pressure 144/82 02/13/2025 4:03 PM EDT Pulse 77 02/13/2025 4:03 PM EDT Temperature - - Respiratory Rate - - Oxygen Saturation 99% 02/13/2025 4:03 PM EDT Inhaled Oxygen Concentration - - Weight 99.8 kg (220 lb) 02/13/2025 4:03 PM EDT Height 157.5 cm (5' 2 ) 01/11/2024 2:36 PM EDT Body Mass Index 40.24 01/11/2024 2:36 PM EDT Plan of Treatment Health Maintenance Due Date Last Done Comments COVID-19 VACCINE (#1) 1982 DEPRESSION SCREENING 1989 SMOKING Hx and SMOKELESS TOBACCO SCREENING 1990 HIV ONE-TIME SCREENING (18-65 YEARS) 1995 PNEUMOCOCCAL VACCINES (0-49 years) (1 of 2 - PCV) 1996 PAP SMEAR 1998 MAMMOGRAM 2017 COLOGUARD 2022 COLONOSCOPY 2022 COLORECTAL CANCER SCREENING 2022 FIT TEST 2022 FOBT 2022 SIGMOIDOSCOPY 2022 VIRTUAL COLONOSCOPY 2022 LIPID PANEL 07/18/2024 07/18/2019 POTASSIUM LEVEL 01/10/2025 01/11/2024, 09/09/2023 Adult Td,Tdap Booster 09/03/2025 09/03/2015 CREATININE LEVEL 11/23/2025 11/23/2024, , 01/11/2024, Additional history exists SCREENING FOR DIABETES 01/10/2027 01/11/2024 HEPATITIS C SCREENING Completed 09/09/2023 HEPATITIS A VACCINES Aged Out No long er eligible based on patient's age to complete this topic HIB VACCINES Aged Out No longer eligi ble based on patient's age to complete this topic MENINGOCOCCAL VACCINES (ACWY) Aged Out No longer eligible based on patient's age to complete this topic MENINGOCOCCAL VACCINES (B) Aged Out N o longer eligible based on patient's age to complete this topic Medical Devices Not on file Procedures Procedure Name Priority Date/Time Associated Diagnosis Comments COMPREHENSIVE METABOLIC PANEL Routine 11/23/2024 11:31 AM EDT Encounter for methotrexate monitoring COMPREHENSIVE METABOLIC PANEL Routine 01/11/2024 3:09 PM EDT Rheumatoid arthritis involving multiple sites with positive rheumatoid factor HEPATITIS C ANTIBODY, QUALITATIVE Routine 09/09/2023 3:10 PM EST Rheumatoid arthritis involving multiple sites with positive rheumatoid factor from Last 3 Months or Most Recently Relevant to Health Maintenance Results * Comprehensive metabolic panel (11/23/2024 11:31 AM EDT) Only the most recent of2 resultswithin the time period is included. Blood us April Rodrigues MD, MPH LAB BLOOD ORDERABLES Fin al Result Performing Organization Address City/[facility] Co de Phone Number EXTERNAL NON-INTERFACED REF LAB * Hepatitis C antibody, qualitative (09/09/2023 3:10 PM EST) HCV NON-REACTIV E NON-REACTI VE [facility] Blood 09/09/2023 3:10 PM EST 09/09/2023 3:14 PM EST Tashi Elliott MD LAB BLOOD ORDERABLES Fi nal Result Performing Organization Address [facility] de Phone Number [facility] [address] [place] [address] from Last 3 Months or Most Recently Relevant to Health Maintenance [place] [address] [place] [address] [employer] [place] [address] [place] [address] ACO Care Teams Beverage Steward Relationship Specialty Start Date End Date Jeanette Smith MD [address] [place] [address] PCP - General Internal Medicine 03/24/23 Additional Source Comments The information contained in this document represents components of the legal health record. It is not the complete legal health record.[facility]
--- OUTSIDE RECORDS SUMMARY | 2025-03-15 10:23 | XMS_ITS | Clinical Summary ---
Author Organization [facility] Address [address] [place] [address] Care Team Providers Care Voip Technician Name Role Phone Unavailable Primary Care [...] daily apply a thin ribbon on toothbrush. Meridian thoroughly once daily for two minutes, preferably at bedtime. After use expectorate. For best results, do not eat, drink, or rinse for 30 minutes. 51 g 1 2 Active Active Problems Patient Care Coordination No te Formatting of this note migh t be different from the original. Problem Noted Date Diagnosed Date Fibromyalgia 08/30/2019 Overview (08/30/2019): As per ATC History of CT scan of abdomen 08/05/2019 Overview (08/05/2019): 07/17/19 [facility] - Abdominal CT - Revealed non obstructing [...] 03/29/19 - SURGERY: Retropubic midurethral sling with [employer]vantage system, cystourethroscopy - done at [facility] by Melissa Durham DO. Indication: WENDI Diabetes ([facility] & HHS-HCC) 04/28/2019 Overview (04/28/2019): Per 02/26/19, [facility] ED Centrilobular emphysema ([facility] & HHS-HCC) 01/21/20 Overview (08/04/2019): Scheduled for Pulmonology apt 07/14/19 Per 01/20/19, Walter Doe MD, Pulmonology Report: Normal PFT 01/13/19 - Combivent respimat Q 6 hrs PRN History of lung surgery 01/20/2019 Overview (08/05/2019): Scheduled for Pulmonology apt 07/14/19 Per 01/20/19, Walter Doe MD, Pulmonology Report: - 02/20/15, [facility], LLL wedge resection due to pulmonary nodule [...] RTC in 7 weeks. Failed PT at [facility] 09/04, went to ER and missed appt. 09/08. DCed due to no symptom improvement. - 09/03/18, [facility] pain management: A/P: Dx: lumbar radiculitis Facet arthropathy. Pt f/u after her LESI which gave her very short lived benefit. she doesn't want any further injections. we recommend she should go back to her PCP to explore further options,medications etc as we don't do medication management in our practice. Morbid obesity with body mas s index of 45.0-49.9 in adult (CMS & [facility]-HCC) 11/06/2017 Overview (01/28/2018): Overview: Bariatric Surgery Program Surgeon: Initial visit date 07/02/17 [facility] Psychiatry clearance: Provider and date PCP clearance: [facility]: Labs: Needs to quit smoking. Support [...] RTC in 7 weeks. Failed PT at [facility] 09/04, went to ER and missed appt. 09/08. DCed due to no symptom improvement. - 09/03/18, [facility] pain management: A/P: Dx: lumbar radiculitis [...] Abdominal pain 10/16/2014 Lupus (systemic lupus erythematosus) ([facility]) Overview (09/14/2019): Per 07/2019 ATC-On plaquenil 200mg tid Per 01/17/19, [facility]th[facility] Treatment Office Notes, Dr. Lama: - Polyarthralgias, rash, alopecia, JOAQUÍN 1:40 ([facility]), 1:800 ([facility]), Low C3 and C4. Due for eye exam, last 04/25/15. Electrical Worker: Melissa Hair MD - Lupus under control, continue with hydroxyloroquine ?mg. + diffuse non-arthritic lupus pain, seems most c/w with fibromyalgia (chronic neurological non-arthritic pain). Discussed with her PCP Tx options for this diffuse pain. Possible referral to a pain managment center if PCP feels it is appropriate. F/u 6 months. Bipolar 1 disorder, depressed ([facility]) Overview (04/28/2019): Per 12/24/18, [facility] Urgent Care: Depression - therapist and psych at [facility] Anxiety Resolved Problems Problem Noted Date Diagnosed Date Resolved Date Acute cholecystitis 12/21/2014 04/28/20 19 Overview (12/21/2014): Admit [facility] 12/07/14 Encounters Date Type Department Care Team Description 02/20/2025 1:00 PM EDT Office Visit [facility] [address] [place] [phone] Keisha Costa, DMD 01/31/2025 11:00 AM EDT Office Visit [facility] [address] [place] [phone] Manjit Moncada, DMD 01/30/2025 1:00 PM EDT Office Visit [facility] [address] [place] [phone] Stephani Phan DDS 01/26/2025 9:00 AM EDT Office Visit [facility] [address] [place] [phone] Stephani Phan DDS 01/23/2025 2:00 PM EDT Office Visit [facility] [address] [place] [phone] Stephani Phan DDJada 12/23/2024 9:00 AM EDT Office Visit [facility] [address] [place] [phone] Stephani Phan DDS 12/20/2024 1:00 PM EDT Office Visit [facility] [address] [place] [phone] Stephani Phan DDS 12/19/2024 2:00 PM EDT Office Visit [facility] [address] [place] [phone] Stephani Phan DDS from Last 3 Months Immunizations Immunization Administration [...] Sign Reading Time Taken Comments Blood Pressure 136/79 02/20/2025 1:15 PM EDT Pulse 68 02/20/2025 1:15 PM EDT Temperature 36.8 C (98.2 F) 10/14/2019 10:39 AM EDT Respiratory Rate 16 10/14/2019 10:39 AM EDT Oxygen Saturation 98% 10/14/2019 10:39 AM EDT Inhaled Oxygen Concentration - - Weight 100.7 kg (222 lb) 10/14/2019 10:39 AM EDT Height 157.5 cm (5' 2 ) 10/14/2019 10:39 AM EDT Body Mass Index 40.6 10/14/2019 10:39 AM EDT Plan of Treatment Upcoming Encounters Date Type Department Care Team (Late st Contact Info) Description 03/27/2025 1:00 PM EDT Office Visit [facility] [address] [place] [phone] Stephani Phan, DDS [address] [place] [phone] Health Maintenance Due Date Last Done Comments [...] 10/21/2019 Fecal DNA 10/21/2019 Flexible Sigmoidoscopy 10/21/2019 Hemoglobin A1c 01/17/2020 07/18/2019, 08/04, 10/16/2014 Annual Wellness (Adult): Indicated (All Coverage) 07/07/2020 07/07/2019, 01/28/2018, 12/04/2016, Additional history exists Relationship Safety Screening/Counseling 07/07/2020 07/07/2019, 01/28/2018 Lipid Screening 07/18/2020 07/18/2019, 08/04, 10/16/2014 Serum Creatinine 07/18/2020 07/18/2019, , 10/16/2014 Imm-Pneumococcal (2 of 2 - PCV) 04/25/2023 , 07/28/2015 [id number] (4 - season) 2024 07/09/2021, 01/07/2021, 12/17/2020 Alcohol and Drug Screen 08/03/2024 10/14/19 20, 02/15/2019, 01/28/2018, Additional history exists Depression Annual Screen 08/03/2024 020, 01/28/2018 (Managed by Outside Provider), 11/29/2015, Additional history exists Dental Perio Charting 12/15/2024 12/14/2023 , 06/11/2023, 06/12/2022 Dental Prophy 12/20/2024 06/20/2024, 12/01, 06/11/2023, Additional history exists Imm-Influenza (#1) 2025 05/20/2024, 1 , 05/16/2022, Additional history exists Dental BW 06/22/2025 06/20/2024, 11/04/2023, 12/09/2022, Additional history exists Dental Examination 06/22/2025 06/20/2024, 0 12/14/2023, 06/11/2023, Additional history exists Imm-DTaP/Tdap/Td (2 - Td or Tdap) 09/03/2025 016, 10/25/2012 Tobacco Screening 01/31/2026 01/31/2025, , 02/22/2015 Hypertension Screening (#1) 02/20/2026 10/16/2014 Colonoscopy 01/21/2027 01/21/2017 Colorectal Cancer Screening 01/21/2027 Dental FMX/Pano 12/15/2028 12/14/2023, 06/12/2022 Hepatitis C Screening Completed 09/09/2023, 019 Cervical Ablation/Cold-Knife Conization Discontinued Cervical Cryotherapy Discontinued Colposcopy Discontinued Endometrial Biopsy Discontinued Excision/Leep Discontinued HPV Genotyping Discontinued Imm-Hepatitis B Discontinued Vaginal Pap Discontinued Vulvoscopy Discontinued Procedures Procedure Name Priority Date/Time Associated Diagnosis Comments 28 CORE BUILDUP INCLUDING ANY PINS WHEN REQUIRED Routine 02/20/2025 1:00 PM EDT Symptomatic irreversible pulpitis 28 ENDODONTIC THERAPY PREMOLAR TOOTH Routine 02/20/2025 1:00 PM EDT Symptomatic irreversible pulpitis CASE PRESENTATION SUBS DTL & EXTENSIVE TX PLN Routine 02/20/2025 1:00 PM EDT Symptomatic irreversible pulpitis OFFICE VISIT OBSERVATION NO OTHER SRVC PERFORMED Routine 01/30/2025 1:00 PM EDT Encounter for dental examination OFFICE VISIT OBSERVATION NO OTHER SRVC PERFORMED Routine 01/26/2025 9:00 AM EDT Encounter for dental examination INTRAORAL - PERIAPICAL FIRST RADIOGRAPHIC IMAGE Routine 01/23/2025 2:00 PM EDT Encounter for dental examination LIMITED ORAL EVALUATION - PROBLEM FOCUSED Routine 01/23/2025 2:00 PM EDT Encounter for dental examination 6 PALLIATIVE TREATMENT OF DENTAL PAIN - PER VISIT Routine 12/23/2024 9:00 AM EDT Encounter for dental examination 21 ENDODONTIC THERAPY PREMOLAR TOOTH Routine 12/20/2024 1:00 PM EDT Secondary occlusal trauma OFFICE VISIT OBSERVATION NO OTHER SRVC PERFORMED Routine 12/19/2024 2:00 PM EDT Chronic apical abscess BITEWINGS - FOUR RADIOGRAPHIC IMAGES Routine 06/20/2024 10:20 AM EST Fractured dental zoroastrianism with loss of material Encounter for dental [...] EST) HEPATITIS B SURFACE ANTIBODY POSITIVE(A) NEGATIVE [facility] HEPATITIS B SURFACE ANTIGEN NEGATIVE NEGATIVE [facility] Comment: Over the counter supplements containing high doses of biotin may interfere with this assay. If interference is suspected, patients shoud be retested after refraining from biotin supplements for 72 hours. HEPATITIS C VIRUS DIAGNOSTIC NEGATIVE NEGATIVE [facility] HEPATITIS B CORE ANTIBODY NEGATIVE NEGATIVE [facility] HEPATITIS A ANTIBODY TOTAL NEGATIVE NEGATIVE [facility] Comment: Over the counter supplements containing high doses of biotin may interfere with this assay. If interference is suspected, patients shoud be retested after refraining from biotin supplements for 72 hours. Blood specimen (specimen) Blood / Unknown 07/18/2019 10:48 AM EST 07/18/2019 11:18 AM EST [employer] [facility] - 07/18/2019 4:46 PM EST [facility] [employer], [place] [address] Creative Engagement Director - Darlene Nance MD PT ID [id number] ORD# [id number] Chrystal George PA-C LAB - BLOOD DRAW Edited R esult - Final Performing Organization Address City/State/[facility] [place] [address], * HEMOGLOBIN, GLYCOSYLATED (A1C) (07/18/2019 10:48 AM EST) GLYCATED HEMOGLOBIN A1C 5.3 <6.5 % [facility] ESTIMATED AVERAGE GLUCOSE 105 mg/dL [facility] Blood specimen (specimen) Blood / Unknown 07/18/2019 10:48 AM EST 07/18/2019 11:18 AM EST [employer] [facility] [employer] [facility] [facility] - 07/18/2019 6:23 PM EST [employer], [place] [address] Creative Engagement Director - Darlene Nance MD PT ID [id number] ORD# [id number] Chrystal George PA-C LAB - BLOOD DRAW Final Re sult Performing Organization Address [facility] de Phone Number [address] [address], * (ABNORMAL) LIPID PANEL (07/18/2019 10:48 AM EST) CHOLESTEROL 163 0 - 200 mg/dL [facility] TRIGLYCERIDES 79 0 - 150 mg/dL [facility] HDL CHOLESTEROL 45 >40 mg/dL [facility] LDL CALCULATED 103(H) 0 - 100 mg/dL [facility] TC-HDLC RATIO 3.6 0 - 4.4 mg/dL [facility] Blood specimen (specimen) Blood / Unknown 07/18/2019 10:48 AM EST 07/18/2019 11:18 AM EST Narrative [facility] - 07/18/2019 4:27 PM EST [employer], [place] [address] Creative Engagement Director - Darlene Nance MD PT ID [id number] ORD# [id number] Chrystal George PA-C LAB - BLOOD DRAW Edited R esult - Final Performing Organization Address City/[facility]/ZIP Co de Phone Number [address] [address], [place] [phone] * COMPRE METAB PANEL (07/18/2019 10:48 AM EST) BUN 15 5 - 25 mg/dL [facility] CREAT 0.88 0.5 - 1.1 mg/dL [facility] GLOMERULAR FILTRATION RATE > 60 [facility] Comment: If patient is -[place], multiply result by 1.21 Chronic Kidney Disease: < 60 ml/min/1.73 square meters Kidney Failure: < 15 ml/min/1.73 square meters SODIUM 142 135 - 145 mEq/L [facility] POTASSIUM 4.2 3.5 - 5.5 mmol/L [facility] CHLORIDE 110 96 - 110 mmol/L [facility] CO2 28 21 - 32 mmol/L [facility] ANION GAP 4 3 - 11 [facility] CALCIUM 9.3 8.5 - 10.5 mg/dL [facility] ALBUMIN 3.4 3.2 - 5.0 G/dL [facility] SGPT 26 10 - 60 U/L [facility] GLUCOSE 92 70 - 100 mg/dL [facility] Comment:Reference range appl icable to fasting specimens only TOTAL PROTEIN 6.5 6.0 - 8.0 G/dL [facility] BILI, TOTAL 0.2 0.0 - 1.4 mg/dL [facility] SGOT 21 10 - 42 U/L [facility] ALK PHOS 84 42 - 121 U/L [facility] Blood specimen (specimen) Blood / Unknown 07/18/2019 10:48 AM EST 07/18/2019 11:18 AM EST Narrative [facility] - 07/18/2019 4:57 PM EST [facility] [employer], [place] [address] Creative Engagement Director - Darlene Nance MD PT ID [id number] ORD# [id number] us Chrystal George PA-C LAB - BLOOD DRAW [place] [address], from Last 3 Months or Most Recently Relevant to Health Maintenance Insurance [place] MEDICAID DENTAL [facility] PLAN Member Subscriber Plan / Payer (Ef fective 2020-Present) Name:Romana Brooks Relation to Subscriber:Self Name:Romana Brooks Payer ID:[id number] Group ID:Not on file Type:Medicaid Address: [address] [address] [place] [address] [facility]
--- OUTSIDE RECORDS SUMMARY | 2025-03-15 10:23 | XMS_ITS | Clinical Summary ---
Author Organization [employer] [facility] it Address [address] [place] [address] Care Team Providers Care Tin Recovery Worker Name Role Phone Emelia Lewis NP Primary Care Provider Unavailabl e Surgical History Surgery Date Site/Laterality Comments COLONOSCOPY PROCEDURE: HISTORICAL COLONOSCOPY Medical History Medical History Date Comments Chronic diarrhea 03/11/2017 DX:Chronic diar vangie Dyspepsia 12/18/2017 DX:Dyspepsia Hematochezia 12/30/2016 DX:Hematochezia Morbid obesity with BMI of 4 5.0-49.9, adult (CMS/HCC V24, CMS/HCC V28) 11/06/2017 DX:Morbid obesity wit h BMI of 45.0-49.9, adult ([facility]); COMMENT: Bariatric Surgery Program Surgeon: Initial visit date 07/02/17 [facility] Psychiatry clearance: Provider and date PCP [facility]. Physical: Labs: Needs to quit smoking. Support [...] on file Obstetrics History Plan of Treatment Upcoming Encounters Date Type Department Care Team (Late st Contact Info) Description 04/11/2025 2:00 PM EDT Office Visit Bariatric Surgery - [place] [address] [phone] Syeda English MD 175 [facility] [address] [place] [address] Health Maintenance Due Date Last Done Comments Breast Cancer Screening 1977 Diabetes: Annual Foot Exam 1987 Diabetes: Annual Retina Eye Exam 1987 Hepatitis B Vaccines (1 of 3 - 19+ 3-dose series) 1996 Cervical Cancer Screening: Pap Smear 1998 Colorectal Cancer Screening: Colonoscopy 07/12/2022 HIV Screening 07/12/2022 Social Influencers of Health Screening 07/12/2022 Pneumococcal Vaccine: Pediatrics (0 to 5 Years) and At-Risk Patients (6 to 49 Years) (2 of 2 - PCV) 04/25/2023 04/25/2022, 07/28/2015 COVID-19 Vaccine ( season) 2024 07/09/2021, 01/07/2021, 12/17/2020 Cholesterol Screening (Lipid Panel) 07/18/2024 07/18/2019, 07/18/2019 Depression Screening 08/03/2024 Diabetes: Annual Urine Albumin-Creatinine Ratio (uACR) 11/26/2024 Diabetes: Blood Sugar Control Test (HGBA1C) 11/26/2024 07/18/2019 Diabetes: Annual GFR (Glomerular Filtration Rate) 01/10/2025 01/11/2024, 09/09/2023, 07/18/2019 Hypertension/CHF/CAD Annual BMP Blood Test 01/10/2025 01/11/2024, 09/09/2023, 07/18/2019 Influenza Vaccine (#1) 2025 , 05/27/2023, 05/16/2022, Additional history exists DTaP,Tdap,and Td Vaccines (3 - Td or Tdap) 09/03/2025 09/03/2015, 10/25/2012 Hepatitis A Vaccines Aged Out 07/28/2019 No long er eligible based on patient's age to complete this topic Hepatitis C Screening Completed 09/09/2023 HIB Vaccines Aged Out No longer eligi [...] to complete this topic RSV Immunization Patients Under 20 months Aged Out No longer eligible based on patient's age to complete this topic Varicella Vaccines Aged Out No longer eligible based on patient's age to complete this topic Insurance [employer] MEDICA[employer] ADVANTAGE [address] [place] [address] Care Teams Tin Recovery Worker Relationship Specialty Start Date End Date Emelia Lewis NP Need Updated Address PCP - General 10/23/20
== END 2025-03-15 10:12 | disposition home or self-care (01) ==
LOC: HO.HPS 09:49
PROVIDERS: PCP Internal Medicine; Visit Provider Hospitalist
DX: R91.8 Other nonspecific abnormal finding of lung field (principal); F17.200 Nicotine dependence, unspecified, uncomplicated; J44.9 Chronic obstructive pulmonary disease, unspecified; R06.09 Other forms of dyspnea
CPT/HCPCS: 99214; G2211

== ENCOUNTER → 2025-03-15 09:48 | Outpatient (BNVA) | payer OTHER, SELFPAY | PROVIDERS: PCP Internal Medicine; Visit Provider Hospitalist | DX: J44.9 Chronic obstructive pulmonary disease, unspecified (principal); R06.09 Other forms of dyspnea; R91.8 Other nonspecific abnormal finding of lung field; F17.200 Nicotine dependence, unspecified, uncomplicated; I10 Essential (primary) hypertension | CPT/HCPCS: 99212 ==